=== PATIENT | female | born 1985 | race Caucasian/White ===

== ENCOUNTER 2019-08-11 08:26 | Emergency (ER) | payer OTHER ==
[~2019-08-11] VITALS: Ht 170.2 cm; Wt 74.5 kg
--- OUTSIDE RECORDS SUMMARY | ~2019-08-11 | XMS | Encounter Summary ---
Demographics + + + | Address | [address] | | | [place] [address] | + + + | Home Phone | | + + + | Preferred Language | Unknown | + + + | Marital Status | Unknown | + + + | Amish Affiliation | Unknown | + + + | Race | Unknown | + + + | Ethnic Group | Unknown | + + + Author + + + | Author | [facility] | | | and [place] | + + + | Organization | [facility] | | | and [place] | + + + | Address | Unknown | + + + | Phone | Unavailable | + + + Support + + + + + | Name | Relationship | Address | Phone | + + + + + | Patel Spence | ECON | [address] | | | | | [place] | | | | | [address] | | + + + + + Care Team Providers + +------+ + | Care Field Care Advocate Name | Role | Phone | + +------+ + | Cyndi Bell MD | PCP | | + +------+ + Reason for Visit + + + | Reason | Comments | + + + | Vaginal Odor | RM5, and irritation after swimming. Diflucan taken 02/13/18. | | | Urinary frequency | + + + Encounter Details +--------+---------+ + + + | Date | Type | Department | Care Team | Description | +--------+---------+ + + + | 02/15/ | Office | [facility] | Darwin Young, | Abdominal bloating | | 2018 | Visit | CARE [address] | [address] | (Primary Dx); Acute | | | | [place], [place] | [place] | vaginitis | | | | [address] | [address] | | | | | [phone] | | | +--------+---------+ + + + Social History + + + +--------+ + | Tobacco Use | Types | Packs/Day | Years | Date | | | | | Used | | + + + +--------+ + | Former Smoker | Cigarettes | | 11 | Quit: 09/19/2014 | + + + +--------+ + + +---+---+---+ | Smokeless Tobacco: | | | | | Never Used | | | | + +---+---+---+ + + +---------+ + | Alcohol Use | Drinks/Week | oz/Week | Comments | + + +---------+ + | Yes | 1-2 Glasses of | | | | | wine | | | + + +---------+ + + + + | Sex Assigned at | Date Recorded | | | | + + + | Female | | + + + + + + + | Job Start Date | Occupation | Industry | + + + + | Not on file | Not on file | Not on file | + + + + + + + + | Travel History | Travel Start | Travel End | + + + + + + | No recent travel history available. | + + documented as of this encounter Last Filed Vital Signs + + + + + | Vital Sign | Reading | Time Taken | Comments | + + + + + | Blood Pressure | 120/70 | 02/15/2018 8:37 AM | | | | | PDT | | + + + + + | Pulse | 68 | 02/15/2018 8:37 AM | | | | | PDT | | + + + + + | Temperature | 36.6 C (97.9 F) | 02/15/2018 8:37 AM | | | | | PDT | | + + + + + | Respiratory Rate | 16 | 02/15/2018 8:37 AM | | | | | PDT | | + + + + + | Oxygen Saturation | 99% | 02/15/2018 8:37 AM | | | | | PDT | | + + + + + | Inhaled Oxygen | - | - | | | Concentration | | | | + + + + + | Weight | 73.4 kg (161 lb 13.1 | 02/15/2018 8:37 AM | | | | oz) | PDT | | + + + + + | Height | 170.2 cm (5' 7") | 02/15/2018 8:37 AM | | | | | PDT | | + + + + + | Body Mass Index | 25.34 | 02/15/2018 8:37 AM | | | | | PDT | | + + + + + documented in this encounter Patient Instructions Patient Instructions Darwin Young MD - 02/15/2018 8:45 AM PDTI will call you with you r test results. Call back here in a couple days regarding your Chlamydia and gonorrhea test s. Return over the week should symptoms persist. documented in this encounter Progress Notes Darwin Young MD - 02/15/2018 8:45 AM PDTFormatting of this note might be different fr om the original. Subjective: Chief Complaint: Vaginal Odor (RM5, and irritation after swimming. Diflucan taken 02/13/18. Urinary frequency) Daniele is a 32 y.o. female who comes in complaining of initially developing some vaginal it reese and redness with a white clumpy discharge about a week ago, after swimming in the [employer]. Because of this 3 days ago she thought she had a yeast vaginitis and take a Diflucan 150 mg orally. Those symptoms seem to resolve with her now having some lower abdominal bloatin g, foul vaginal odors, and some mild pelvic cramping. She states her bladder feels full. S he denies any fevers or chills though has a little bit of nausea and feels a little tired. No diarrhea. She is sexually active not using any type of contraception, and monogamous for the last year and a half. Her last menstrual period was 2 weeks ago which was a little lat e and a little shorter than usual. Past medical history significant for history of genital herpes, though she states she prevents it from daily acyclovir. She had a miscarriage with D&C 3 months ago without complications. In the past she has had a laparoscopic appendectomy and had a laparoscopic ovarian cyst removed. She does not smoke. No other complaints. Patient's medications, allergies, past medical, surgical, social and family histories were reviewed and updated as appropriate. Objective: BP 120/70 | Pulse 68 | Temp 36.6 C (97.9 F) (Temporal) | Resp 16 | Ht 1.702 m (5' 7 ") | Wt 73.4 kg (161 lb 13.1 oz) | LMP 01/30/2018 (Approximate) | SpO2 99% | Breastfeedi ng? No | BMI 25.34 kg/m General Appearance: Alert, cooperative, no distress, appears stated age Abdomen soft, with mild diffuse tenderness in the upper quadrants though no tenderness in t he lower quadrants, without rebound or guarding, without masses, no CVA tenderness to percus jill, no hepatosplenomegaly Pelvic exam shows normal external genitalia, speculum exam shows a creamy white vaginal dis charge though no mucosal inflammation or lesions, cervix appears normal, no uterine motion t enderness, only minimal bilateral adnexal tenderness Skin normal Urine dip negative Urine beta-hCG negative Vaginal path DNA probe negative Cervical swab for GC, Chlamydia, and Trichomonas pending Assessment and Plans: Abdominal bloating with a nonspecific vaginitis. Despite test being negative will give a t rial of Flagyl 500 mg twice a day for a week. She'll call back in a few days regarding her screening for GC and Chlamydia. Return should symptoms persist. documented in this e ncounter Plan of Treatment Not on filedocumented as of this encounter Procedures + +--------+ + + + | Procedure Name | Priori | Date/Time | Associated Diagnosis | Comments | | | ty | | | | + +--------+ + + + | POCT TEST, | Routin | 02/15/2018 | Abdominal bloating | Results for this | | URINE, QUAL | e | 9:28 AM | Acute vaginitis | procedure are in the | | | | PDT | | results section. | + +--------+ + + + | POCT URINALYSIS, | Routin | 02/15/2018 | Abdominal bloating | Results for this | | AUTO WITH CONF | e | 9:27 AM | Acute vaginitis | procedure are in the | | | | PDT | | results section. | + +--------+ + + + | C. TRACHOMATIS AND | Routin | 02/15/2018 | Abdominal bloating | Results for this | | N. GONORRHOEAE AND | e | 9:25 AM | Acute vaginitis | procedure are in the | | T. VAGINALIS, NAAT | | PDT | | results section. | + +--------+ + + + | VAGINAL PATHOGENS | STAT | 02/15/2018 | Abdominal bloating | Results for this | | DNA DIRECT PROBE | | 9:25 AM | Acute vaginitis | procedure are in the | | | | PDT | | results section. | + +--------+ + + + documented in this encounter Results POCT Test, Urine, QUAL (02/15/2018 9:28 AM PDT) + + + + + + | Component | Value | Ref Range | Performed | Pathologist | | | | | At | Signature | + + + + + + | | Negative | Negative | | | | Test, | | | | | | Urine, POC | | | | | + + + + + + | Internal QC | Acceptable | Acceptable | | | + + + + + + | Specific | 1.015 | 1.010, 1.015, | | | | [place], | | 1.020, 1.025 | | | | POC | | | | | + + + + + + | Lot Number | [id number] | | | | + + + + + + | Expiration | 06/05 | | | | | Date | | | | | + + + + + + + + | Specimen | + + | Urine | + + POCT Urinalysis Dipstick Automated (02/15/2018 9:27 AM PDT) + + + + + + | Component | Value | Ref Range | Performed | Pathologist | | | | | At | Signature | + + + + + + | Color, UA, | Dark Yellow (A) | Yellow, Light | | | | POC | | Yellow | | | + + + + + + | Clarity, | Clear | | | | | UA, POC | | | | | + + + + + + | Glucose, | Negative | Negative | | | | UA, POC | | | | | + + + + + + | Bilirubin, | Negative | Negative | | | | UA, POC | | | | | + + + + + + | Ketones, | Negative | Negative, 100 | | | | UA, POC | | mg/dL | | | + + + + + + | Specific | 1.015 | 1.001 - 1.030 | | | | [place], | | | | | | UA, POC | | | | | + + + + + + | Blood, UA, | Negative | Negative | | | | POC | | | | | + + + + + + | pH, UA, POC | 7.0 | 5.0, 6.0, 7.0, | | | | | | 8.0, 5.5, 6.5, | | | | | | 7.5 | | | + + + + + + | Protein, | Negative | Negative | | | | UA, POC | | | | | + + + + + + | Urobilinoge | 0.2 | 0.2, Negative, | | | | n, UA, POC | | Normal, < 0.2 | | | | | | mg/dL, 1 mg/dL, | | | | | | < 0.2 E.U./dl, | | | | | | 1.0 E.U./dL, | | | | | | 0.2 mg/dL | | | + + + + + + | Nitrite, | Negative | Negative | | | | UA, POC | | | | | + + + + + + | Leukocyte | Negative | Negative | | | | Esterase, | | | | | | UA, POC | | | | | + + + + + + | Reducing | | | | | | Substances, | | | | | | Urine | | | | | + + + + + + | Ictotest | | Negative | | | + + + + + + | Remark | | | | | + + + + + + + + | Specimen | + + | Urine | + + C. TRACHOMATIS AND N. GONORRHOEAE AND T. VAGINALIS, NAAT (02/15/2018 9:25 AM PDT) + + + + + + | Component | Value | Ref Range | Performed | Pathologist | | | | | At | Signature | + + + + + + | Chlamydia | Negative | Negative | REFERENCE | | | Trachomatis | | | LAB [facility] | | | Naat | | | - BKR | | + + + + + + | Neisseria | Negative | Negative | REFERENCE | | | Gonorrhoeae | | | LAB [facility] | | | DNA PCR | | | - BKR | | + + + + + + | Trichomonas | Negative | Negative | REFERENCE | | | vaginalis, | | | LAB [facility] | | | DNA probe | | | - BKR | | + + + + + + + + | Specimen | + + | Tissue - Region of | | vagina (body | | structure) | + + + + + | Narrative | Performed At | + + + | Performed at: 01 - [facility] [address] [place] [address], | REFERENCE LAB | | [place] Funes [id number] Clerical Office: Chandler Barnett MD, Phone: | [place] | | [phone] | | + + + + + + + + | Performing | Address | City/State/Zipcode | Phone Number | | Organization | | | | + + + + + | REFERENCE LAB | [address] | [place] [address] | [phone] | | [facility] | [address] | | | + + + + + Vaginal Path DNA dir probe (02/15/2018 9:25 AM PDT) + + + + + + | Component | Value | Ref Range | Performed | Pathologist | | | | | At | Signature | + + + + + + | Ericka SP | Negative | Negative | [facility] | | | DNA Genital | | | [facility] | | | | | | [facility] | | | | | | [facility] - | | | | | | LABORATORY | | + + + + + + | Gardnerella | Negative | Negative | [facility] | | | vaginalis | | | [facility] | | | DNA | | | MEDICAL | | | | | | CENTER - | | | | | | LABORATORY | | + + + + + + | Trichomonas | Negative | Negative | [facility] | | | Vaginalis | | | [facility] | | | DNA | | | MEDICAL | | | | | | CENTER - | | | | | | LABORATORY | | + + + + + + + + | Specimen | + + | Tissue - Region of | | vagina (body | | structure) | + + + + + + + | Performing | Address | City/State/Zipcode | Phone Number | | Organization | | | | + + + + + | [facility] | [address] | [place], [place] | [phone] | | [facility] | | [address] | | | - LABORATORY | | | | + + + + + documented in this encounter Visit Diagnoses + + | Diagnosis | + + | Abdominal bloating - Primary Flatulence, eructation, and gas pain | + + | Acute vaginitis Vaginitis and vulvovaginitis, unspecified | + + documented in this encounter
--- OUTSIDE RECORDS SUMMARY | ~2019-08-11 | XMS | Encounter Summary ---
Demographics + + + | Address | [address] | | | [place] [address] | + + + | Home Phone | | + + + | Preferred Language | Unknown | + + + | Marital Status | Unknown | + + + | Hoahaoism Affiliation | Unknown | + + + | Race | Unknown | + + + | Ethnic Group | Unknown | + + + Author + + + | Author | [facility] | | | and [place] | + + + | Organization | [facility] | | | and [...] [place] | | | | | [address] | | + + + + + Care Team Providers + +------+ + | Care Java Websphere Developer Name | Role | Phone | + +------+ + | Cyndi Bell MD | PCP | | + +------+ + Reason for Visit +---------+ + | Reason | Comments | +---------+ + | Results | | +---------+ + Encounter Details +--------+ + + + + | Date | Type | Department | Care Team | Description | +--------+ + + + + | 12/22/ | Telephone | [facility] | Melody Bruner, | Results | | 2019 | | MEDICINE [place] | MD [address] | | | | | [address] | [place], [place] | | | | | [place], [place] | [address] | | | | | [address] | | | | | | [phone] | | | +--------+ + + + + Social History + + [...] Comments | + + +---------+ + | Not Currently | 1-2 Glasses of | | | | | wine | | | + + +---------+ + + + + | Sex Assigned at | Date Recorded | | | | + + + | Female | 12/21/2018 10:29 AM PDT | + + + + + + [...] + + documented as of this encounter Plan of Treatment Not on filedocumented as of this encounter Visit Diagnoses Not on filedocumented in this encounter"
--- OUTSIDE RECORDS SUMMARY | ~2019-08-11 | XMS | Encounter Summary ---
Demographics + + + | Address | [address] | | | [place] [address] | + + + | Home Phone | | + + + | Preferred Language | Unknown | + + + | Marital Status | Unknown | + + + | Roman Catholic Affiliation | Unknown | + + + | Race | Unknown | + + + | Ethnic Group | Unknown | + + + Author + + + | Author | [facility] | | | and [place] | + + + | Organization | [facility] | | | and [...] [place] | | | | | [address] | | + + + + + Care Team Providers + +------+ + | Care Senior Restaurant Manager Name | Role | Phone | + +------+ + | Cyndi Bell MD | PCP | | + +------+ + Reason for Visit +--------+ + | Reason | Comments | +--------+ + | LABS | | +--------+ + Encounter Details +--------+ + + + + | Date | Type | Department | Care Team | Description | +--------+ + + + + | 06/17/ | Telephone | [facility] | Melody Bruner, | LABS | | 2018 | | MEDICINE [place] | [address] | | | | | [address] | [place] | | | | | [place] | [address] | | | | | [address] | | | | | | [phone] | | | +--------+ + + + [...]
--- OUTSIDE RECORDS SUMMARY | ~2019-08-11 | XMS | Clinical Summary ---
Demographics + + + | Address | [address] | | | [place] [address] | + + + | Home Phone | | + + + | Preferred Language | Unknown | + + + | Marital Status | Single | + + + | Voodoo Affiliation | Unknown | + + + | Race | White | + + + | Ethnic Group | Not or | + + + Author + + + | Author | [facility] | + + + | Organization | [facility] | + + + | Address | Unknown | + + + | Phone | Unavailable | + + + Support + + +---------+ + | Name | Relationship | Address | Phone | + + +---------+ + | Bev Meredith | ECON | Unknown | | + + +---------+ + Care Team Providers + +------+ + | Care Carbon Lamp Cleaner Name | Role | Phone | + +------+ + | Michelle Holloway MEDTRONICS TECHNICIAN | PCP | | + +------+ + Source Comments THIEN is fully live on both [facility] and [facility] Allergies Not on File Medications Not on file Active Problems Not on file Social History + +-------+ +--------+------+ | Tobacco Use | Types | Packs/Day | Years | Date | | | | | Used | | + +-------+ +--------+------+ | Never Assessed | | | | | + +-------+ +--------+------+ + + + | Sex Assigned at | Date Recorded | | | | + + + | Not on file | | + + + + + [...] recent travel history available. | + + Last Filed Vital Signs Not on file Plan of Treatment + + + + + | Health Maintenance | Due Date | Last Done | Comments | + + + + + | Influenza (Flu) | | | | | vaccination (#1) | 9 | | | + + + + + | Pneumococcal | Aged Out | | No longer eligible | | vaccination | | | based on patient's | | | | | age to complete this | | | | | topic | + + + + + Results Not on filefrom Last 3 Months Insurance + +--------+ +--------+-------+---------+--------+ | Payer | Benefi | Subscriber | Effect | Phone | Address | Type | | | t Plan | ID | [place] | | | | | | / | | Dates | | | | | | Group | | | | | | + +--------+ +--------+-------+---------+--------+ | SPRAY GUN OPERATOR MEDICAID | SPRAY GUN OPERATOR | xxxxxxxx | Effect | | | Medica | | | [place]AST[place] | | [place] | | | id | | | [place] | | for | | | | | | | | all | | | | | | | | dates | | | | + +--------+ +--------+-------+---------+--------+ + +--------+ +--------+ + + | Guarantor Name | Accoun | Relation to | Date | Phone | Billing Address | | | t Type | Patient | of | | | | | | | | | | + +--------+ +--------+ + + | Daniele Connor | Person | Self | [birth year] | [address] | | | al/Fam | | 1984 | [phone] | [place] [address] | | | [place] | | | 0 (Home) | | + +--------+ +--------+ + + | Daniele Connor | Person | Self [birth year] | [address] | | | al/Fam | | 1984 | [phone] | [place] [address] | | | [place] | | | 1 (Home) | | + +--------+ +--------+ + +"
--- OUTSIDE RECORDS SUMMARY | ~2019-08-11 | XMS | Encounter Summary ---
Demographics + + + | Address | [address] | | | [place] [address] | + + + | Home Phone | | + + + | Preferred Language | Unknown | + + + | Marital Status | Unknown | + + + | Faith Affiliation | Unknown | + + + | Race | Unknown | + + + | Ethnic Group | Unknown | + + + Author + + + | Author | [facility] | | | and [place] | + + + | Organization | [facility] | | | and [...] [place] | | | | | [address] | | + + + + + Care Team Providers + +------+ + | Care Cover Marker Name | Role | Phone | + +------+ + | Cyndi Bell MD | PCP | | + +------+ + Encounter Details +--------+ + + + + | Date | Type | Department | Care Team | Description | +--------+ + + + + | 10/15/ | Abstract | [facility] | Cyndi Bell MD | | | 2018 | | MEDICINE [place] | [address] | | | | | [address] | [place] | | | | | [place] | [address] | | | | | [address] | | | | | | [phone] | | | +--------+ + + + [...]
--- OUTSIDE RECORDS SUMMARY | ~2019-08-11 | XMS | Encounter Summary ---
Demographics + + + | Address | [address] | | | [place] [address] | + + + | Home Phone | | + + + | Preferred Language | Unknown | + + + | Marital Status | Unknown | + + + | Religion Affiliation | Unknown | + + + | Race | Unknown | + + + | Ethnic Group | Unknown | + + + Author + + + | Author | [facility] | | | and [place] | + + + | Organization | [facility] | | | and [...] [place] | | | | | [address] | | + + + + + Care Team Providers + +------+ + | Care Test Preparation Tutor Name | Role | Phone | + +------+ + | Cyndi Bell MD | PCP | | + +------+ + Reason for Visit +--------+ + | Reason | Comments | +--------+ + | LABS | | +--------+ + Encounter Details +--------+ + + + + | Date | Type | Department | Care Team | Description | +--------+ + + + + | 01/25/ | Telephone | [facility] | Cyndi Bell MD | LABS | | 2019 | | MEDICINE [place] | [address] | | | | | [address] | [place] | | | | | [place] | [address] | | | | | [address] | | | | | | [phone] | | | +--------+ + + + [...]
--- OUTSIDE RECORDS SUMMARY | ~2019-08-11 | XMS | Encounter Summary ---
Demographics + + + | Address | [address] | | | [place] [address] | + + + | Home Phone | | + + + | Preferred Language | Unknown | + + + | Marital Status | Unknown | + + + | Alevism Affiliation | Unknown | + + + | Race | Unknown | + + + | Ethnic Group | Unknown | + + + Author + + + | Author | [facility] | | | and [place] | + + + | Organization | [facility] | | | [...] [place] | | | | | [address] | | + + + + + Care Team Providers + +------+ + | Care Computer Education Teacher Name | Role | Phone | + +------+ + | Cyndi Bell MD | PCP | | + +------+ + Encounter Details +--------+ + + + + | Date | Type | Department | Care Team | Description | +--------+ + + + + | 10/13/ | Abstract | [facility] | Cyndi Bell MD | | | 2017 | | MEDICINE [place] | [address] | | | | | [address] | [place] | | | | | [place] | [address] | | | | | [address] | | | | | | [phone] | | | +--------+ + + + + Social History + + + +--------+ + | Tobacco Use | Types | Packs/Day | Years | Date | | | | | Used | | + + + +--------+ + | Former Smoker | Cigarettes | | | Quit: 09/19/2014 | + + + [...] | + +--------+ + + + | EXTERNAL LAB: [facility] | Routin | 08/26/2017 | | Results for this | | SMEAR | e | | | procedure are in the | | | | | | results section. | + +--------+ + + + documented in this encounter Results External Lab: PAP Smear (08/26/2017) + + + + + + | Component | Value | Ref Range | Performed | Pathologist | | | | | At | Signature | + + + + + + | Pap Smear, | No evidence of | | | | | External | intraepithelial lesion | | | | | | or malignancy | | | | + + + + + + documented in this encounter Visit Diagnoses Not on filedocumented in this encounter"
--- OUTSIDE RECORDS SUMMARY | ~2019-08-11 | XMS | Encounter Summary ---
Demographics + + + | Address | [address] | | | [place] [address] | + + + | Home Phone | | + + + | Preferred Language | Unknown | + + + | Marital Status | Unknown | + + + | Sabianist Affiliation | Unknown | + + + | Race | Unknown | + + + | Ethnic Group | Unknown | + + + Author + + + | Author | [facility] | | | and [place] | + + + | Organization | [facility] | | | and [...] [place] | | | | | [address] | | + + + + + Care Team Providers + +------+ + | Care Manager Language Name | Role | Phone | + +------+ + | Cyndi Bell MD | PCP | | + +------+ + Reason for Visit + + + | Reason | Comments | + + + | Lab Order | | + + + Encounter Details +--------+ + + + + | Date | Type | Department | Care Team | Description | +--------+ + + + + | 04/13/ | Telephone | [facility] | Cyndi Bell MD | Lab Order | | 2019 | | MEDICINE [place] | [address] | | | | | [address] | [place] | | | | | [place], [place] | [address] | | | | | [address] | | | | | | [phone] | | | +--------+ + + + [...] as of this encounter Plan of Treatment + +------+--------+ + + | Name | Type | Priori | Associated Diagnoses | Order Schedule | | | | ty | | | + +------+--------+ + + | TSH | Lab | Routin | Miscarriage | 1 Occurrences | | | | e | | starting 05/05/2019 | | | | | | until 05/04/2020 | + +------+--------+ + + | T3, Free | Lab | Routin | Miscarriage | 1 Occurrences | | | | e | | starting 05/05/2019 | | | | | | until 05/04/2020 | + +------+--------+ + + | T4, Free | Lab | Routin | Miscarriage | 1 Occurrences | | | | e | | starting 05/05/2019 | | | | | | until 05/04/2020 | + +------+--------+ + + documented as of this encounter Visit Diagnoses + + | Diagnosis | + + | Miscarriage - Primary Unspecified spontaneous without mention of | | complication | + + documented in this encounter"
--- OUTSIDE RECORDS SUMMARY | ~2019-08-11 | XMS | Encounter Summary ---
Demographics + + + | Address | [address] | | | [place] [address] | + + + | Home Phone | | + + + | Preferred Language | Unknown | + + + | Marital Status | Unknown | + + + | Gnosticist Affiliation | Unknown | + + + | Race | Unknown | + + + | Ethnic Group | Unknown | + + + Author + + + | Author | [facility] | | | and [place] | + + + | Organization | [facility] | | | and [...] [place] | | | | | [address] | | + + + + + Care Team Providers + +------+ + | Care Caul Fat Puller Name | Role | Phone | + +------+ + | Cyndi Bell MD | PCP | | + +------+ + Reason for Visit + + + | Reason | Comments | + + + | Miscarriage | | + + + Encounter Details +--------+ + + + + | Date | Type | Department | Care Team | Description | +--------+ + + + + | 12/21/ | Telephone | [facility] [place] [facility] | Cyndi Bell MD | Miscarriage | | 2019 | | MEDICINE [place] | [address] | | | | | [address] | [place], [place] | | | | | [place], [place] | [address] | | | | | [address] | | | | | | [phone] | | | +--------+ + + + [...]
--- OUTSIDE RECORDS SUMMARY | ~2019-08-11 | XMS | Encounter Summary ---
Demographics + + + | Address | [address] | | | [place] [address] | + + + | Home Phone | | + + + | Preferred Language | Unknown | + + + | Marital Status | Unknown | + + + | Holiness Affiliation | Unknown | + + + | Race | Unknown | + + + | Ethnic Group | Unknown | + + + Author + + + | Author | [facility] | | | and [place] | + + + | Organization | [facility] | | | [...] [place] | | | | | [address] | | + + + + + Care Team Providers + +------+ + | Care Admissions Consultant Name | Role | Phone | + +------+ + | Cyndi Bell MD | PCP | | + +------+ + Reason for Visit + + + | Reason | Comments | + + + | Lab Order | | + + + | Miscarriage | | + + + Encounter Details +--------+ + + + + | Date | Type | Department | Care Team | Description | +--------+ + + + + | 01/18/ | Telephone | [facility] | Melody Bruner, | Lab Order; | | 2018 | | [facility] [place] | [address] | Miscarriage | | | | [address] | [place] | | | | | [place] | [address] | | | | | [address] | | | | | | [phone] | | | +--------+ + + + [...] filedocumented as of this encounter Visit Diagnoses + + | Diagnosis | + + | Miscarriage - Primary Unspecified spontaneous without mention of | | complication | + + documented in this encounter"
--- OUTSIDE RECORDS SUMMARY | ~2019-08-11 | XMS | Encounter Summary ---
Demographics + + + | Address | [address] | | | [place] [address] | + + + | Home Phone | | + + + | Preferred Language | Unknown | + + + | Marital Status | Unknown | + + + | Rastafari Affiliation | Unknown | + + + | Race | Unknown | + + + | Ethnic Group | Unknown | + + + Author + + + | Author | [facility] | | | and [place] | + + + | Organization | [facility] | | | [...] [place] | | | | | [address] | | + + + + + Care Team Providers + +------+ + | Care Epilepsy Physician Name | Role | Phone | + +------+ + | Cyndi Bell MD | PCP | | + +------+ + Reason for Visit + + + | Reason | Comments | + + + | Medication Prior | Clindamycin 1% gel | | Authorization | | + + + Encounter Details +--------+ + + + + | Date | Type | Department | Care Team | Description | +--------+ + + + + | 10/20/ | Telephone | [facility] | Cyndi Bell MD | Medication Prior | | 2017 | | [facility] [place] | [address] | Authorization | | | | [address] | [facility] [place] | (Clindamycin 1% gel) | | | | [place], [place] | [address] | | | | | [address] | | | | | | [phone] | | | +--------+ + + + [...]
--- OUTSIDE RECORDS SUMMARY | ~2019-08-11 | XMS | Encounter Summary ---
Demographics + + + | Address | [address] | | | [place] [address] | + + + | Home Phone | | + + + | Preferred Language | Unknown | + + + | Marital Status | Unknown | + + + | Mormon Affiliation | Unknown | + + + | Race | Unknown | + + + | Ethnic Group | Unknown | + + + Author + + + | Author | [facility] | | | and [place] | + + + | Organization | [facility] | | | and [place] | + + + | Address | Unknown | + + + | Phone | Unavailable | + + + Support + + + + + | Name | Relationship | Address | Phone | + + + + + | Patel Spnece | ECON | [address] | | | | | [place] | | | | | [address] | | + + + + + Care Team Providers + +------+ + | Care Shift Supervisor Film Processing Name | Role | Phone | + +------+ + | Cyndi Bell MD | PCP | | + +------+ + Encounter Details +--------+ + + + + | Date | Type | Department | Care Team | Description | +--------+ + + + + | 10/13/ | Abstract | [facility] | Cyndi Bell MD | | | 2017 | | [facility] [place] | [address] | | | | | [address] | [place] | | | | | [place] | [address] | | | | | [address] | | | | | | [phone] | | | +--------+ + + + [...]
--- OUTSIDE RECORDS SUMMARY | ~2019-08-11 | XMS | Encounter Summary ---
Demographics + + + | Address | [address] | | | [place] [address] | + + + | Home Phone | | + + + | Preferred Language | Unknown | + + + | Marital Status | Single | + + + | Jain Affiliation | Unknown | + + + | Race | White | + + + | Ethnic Group | Not or | + + + Author + + + | Author | [facility] | + + + | Organization | [facility] | + + + | Address | Unknown | + + + | Phone | Unavailable | + + + Support + + +---------+ + | Name | Relationship | Address | Phone | + + +---------+ + | Bev Meredith | ECON | Unknown | | + + +---------+ + Care Team Providers + +------+ + | Care Family Educator Name | Role | Phone | + +------+ + PCP | Unavailable | + +------+ + Encounter Details +--------+ + + + + | Date | Type | Department | Care Team | Description | +--------+ + + + + | 06/09/ | Office | [facility] | Amador Fuentes | Progress Note | | 2002 | Visit-Trans | PRACTICE | Clinic | | | | cribed | | | | +--------+ + + + + Social History + +-------+ +--------+------+ | Tobacco [...] + + documented as of this encounter Progress Notes Interface, Carpet Journeyman In - 02/03/2006 1:06 AM PDTClinic Date: 06/09/2003 [facility] Subjective: Daniele comes to the clinic today to establish care as well as a concern for a white vaginal discharge for the past week. The patient does not complain of pruritus or an abnormal odor. She also reports that she had unprotected sex 2 months ago. Her last menstrual period was on May 14, 2003. The patient's periods are usually irregular and last approximately 7 days. The patient is on a control, Ortho Tri-Cyclen, however, reports that she has been taking this irregularly. Review Of Systems: Positive for one day of vomiting one week ago, subsequently resolved. Otherwise, review of system is negative. Past Medical History 1. Depression. The patient has been intermittently treated for this with Zoloft, the last time she was treated was 8 months ago. Since that time, she reports that she has had normal mood and normal appetite. No change in sleeping habits. No anhedonia or increased emotionality. 2. History of Chlamydia, treated in 1999. Past Gynecological History: Menarche at age 12. The patient is a G0, P0. Last Pap smear was in 2001. No history of abnormal Paps. STDs as above. Chlamydia in 2001. Periods are irregular, as above. The patient is formally on Depo-Provera. Allergies: No known drug allergies. Medications: Ortho Tri-Cyclen q.d. x 2 months. Social History: The patient has recently moved here from [place]. 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 Habits: Tobacco, one pack every 2 to 3 days x 5 years. Alcohol, a couple of drinks every other month. No recreational drug use. Family History: Grandfather has hypertension. The mother with a type of stomach cancer. Grandmother and great grandmother with history of breast cancer. Health Maintenance: Immunizations are up to date. Last tetanus shot was in 2002. Exercise several times a month, situps and walking. Physical Examination Vital Signs: Blood pressure is 110/64, temperature is 97.1, pulse is 80, respiratory rate is 14, height is 5 feet 4-3/4 inches, and weight is 145 pounds. General: This is a thin, pleasant young woman in no apparent distress. HEENT: Pupils are equally, round, and reactive to light. Oropharynx is clear without erythema or exudate. Neck: No lymphadenopathy. Heart: Regular rate and rhythm without murmurs. Chest: Clear to auscultation bilaterally. Abdomen: Normal active bowel sounds. Soft, nontender, and nondistended. Genitourinary: Normal external genitalia without lesions. Vaginal vault is pink, rugated, and no lesions. Cervix is nonparous without lesion. Bimanual exam: No adnexal tenderness or masses. Uterus is midline and anteroflexed. Extremities: Warm and well perfused. Laboratory Data: Urine hCG is negative. Wet mount is without evidence of clue cells or Trichomonas. FARRAH without hyphae. Assessment and Plan: This is a 18-year-old female complaining of vaginal discharge with concerns after having unprotected sex. 1. Vaginal discharge. Wet mount and FARRAH were negative. GC and Chlamydia probe was collected. Pelvic exam was normal without signs of tenderness or an abnormal discharge. On exam, the patient received sexually transmitted diseases prevention counseling. We will follow up the results of the GC probe and send the report to the patient. 2. control. The patient is currently on Ortho Tri-Cyclen, although she takes this irregularly. We discussed that the control is not effective when taken in this manner. We also discussed her increased risk with oral contraceptive pills because of a positive family history of a breast cancer as well as smoking. We discussed other forms of control; however, the patient has decided to continue the Ortho Tri-Cyclen at this time. 3. The patient will be sent the results of her Pap smear as well as GC and Chlamydia. She will follow up in the clinic in 6 months or p.r.n. Juan Yost M.D. Salvatore Odell M.D. / [id number] / [id number] / [id number] / Tdocumented in this encounter Plan of Treatment Not on filedocumented as of this encounter Visit Diagnoses Not on filedocumented in this encounter"
--- OUTSIDE RECORDS SUMMARY | ~2019-08-11 | XMS | Encounter Summary ---
Demographics + + + | Address | [address] | | | [place] [address] | + + + | Home Phone | | + + + | Preferred Language | Unknown | + + + | Marital Status | Unknown | + + + | Rastafarian Affiliation | Unknown | + + + | Race | Unknown | + + + | Ethnic Group | Unknown | + + + Author + + + | Author | [facility] | | | and [place] | + + + | Organization | [facility] | | | [...] [place] | | | | | [address] | | + + + + + Care Team Providers + +------+ + | Care Microbiology Supervisor Name | Role | Phone | + [...] Telephone | [facility] | Melody Bruner, | Miscarriage | | 2019 | | [facility] [place] | [address] | | | | | [address] | [place], [place] | | | | | [place], [place] | [address] | | | | | [address] | | | | | | [phone] | | | +--------+ + + + [...] Not on filedocumented as of this encounter Results TYLER Mane (12/22/2018 7:10 AM PDT) + + + + + + | Component | Value | Ref Range | Performed | Pathologist | | | | | At | Signature | + + + + + + | ABO | A | | [facility] | | | | | | [facility] | | | | | | [facility] | | | | | [facility] - | | | | | | [facility] BANK | | + + + + + + | Rh Type | Positive | | [facility] | | | | | [facility] | | | | | | [facility] | | | | | | [facility] - | | | | | | [facility]LOOD BANK | | + + + + + + + + | Specimen | + + | Blood | + + + + + + + | Performing | Address | City/State/Zipcode | Phone Number | | Organization | | | | + + + + + | [facility] | [address] | [place] | | | [facility] | | [address] | | | - BLOOD BANK | | | | + + + + + documented in this encounter Visit Diagnoses + + | Diagnosis | + + | Miscarriage - Primary Unspecified spontaneous without mention of | | complication | + + documented in this encounter"
--- OUTSIDE RECORDS SUMMARY | ~2019-08-11 | XMS | Encounter Summary ---
Demographics + + + | Address | [address] | | | [place] [address] | + + + | Home Phone | | + + + | Preferred Language | Unknown | + + + | Marital Status | Unknown | + + + | Confucianist Affiliation | Unknown | + + + | Race | Unknown | + + + | Ethnic Group | Unknown | + + + Author + + + | Author | [facility] | | | and [place] | + + + | Organization | [facility] | | | [...] [place] | | | | | [address] | | + + + + + Care Team Providers + +------+ + | Care Ground Service Equipment Mechanic Name | Role | Phone | + +------+ + | Cyndi Bell MD | PCP | | + +------+ + Encounter Details +--------+ + + + + | Date | Type | Department | Care Team | Description | +--------+ + + + + | 01/25/ | Orders Only | [facility] | Melody Bruner, | Miscarriage (Primary | | 2019 | | [facility] [place] | [address] | Dx) | | | | [address] | [place] | | | | | [place] | [address] | | | | | [address] | | | | | | [phone] | | | +--------+ + + + [...] on filedocumented as of this encounter Results HCG, Serum, Quant (02/01/2019 8:44 AM PDT) + + + + + + | Component | Value | Ref Range | Performed | Pathologist | | | | | At | Signature | + + + + + + | hCG Quant, | 17 (H)Comment: [facility] | 0 - 6 mIU/mL | [facility] | | | Serum | RANGE: | | [place] | | | | B-hCG | | MEDICAL | | | | LEVELGestational Age | | [facility] | | | | Expected hCG | | LABORATORY | | | | Values | | | | | | | | | | | | 0 | | | | | | .2-1 week | | | | | | 5-50 | | | | | | mIU/mL1-2 weeks | | | | | | 50-500 | | | | | | mIU/mL2-3 weeks | | | | | | 100-5,000 | | | | | | mIU/mL3-4 weeks | | | | | | 500-10,000 | | | | | | mIU/mL4-5 weeks | | | | | | 1,000-50,000 | | | | | | mIU/mL5-6 weeks | | | | | | 10,000-100,000 | | | | | | mIU/mL6-8 weeks | | | | | | 15,000-200,000 | | | | | | mIU/mL2-3 months | | | | | | 10,000-100,000 | | | | | | mIU/mL | | | | + + + + + + + + | Specimen | + + | Blood | + + + + + + + | Performing | Address | City/State/Zipcode | Phone Number | | Organization | | | | + + + + + | [facility] | [address] | [place] | [phone] | | [facility] | | [address] | | | [facility] | | | | + + + + + documented in this encounter Visit Diagnoses + + | Diagnosis | + + | Miscarriage - Primary Unspecified spontaneous without mention of | | complication | + + documented in this encounter"
--- OUTSIDE RECORDS SUMMARY | ~2019-08-11 | XMS | Encounter Summary ---
Demographics + + + | Address | [address] | | | [place] [address] | + + + | Home Phone | | + + + | Preferred Language | Unknown | + + + | Marital Status | Unknown | + + + | Pentecostal Affiliation | Unknown | + + + | Race | Unknown | + + + | Ethnic Group | Unknown | + + + Author + + + | Author | [facility] | | | and [place] | + + + | Organization | [facility] | | [...] [place] | | | | | [id number] | | + + + + + Care Team Providers + +------+ + | [employer] Name | Role | Phone | + +------+ + | Cyndi Bell MD | PCP | | + +------+ + Reason for Visit + + + | Reason | Comments | + + + | Vaginal Discharge | Rm6; vagianal discharge x 24hrs without odor, intermittent pelvic | | | discomfort x 2 weeks, vaginal itching | + + + Encounter Details +--------+---------+ + + + | Date | Type | Department | Care Team | Description | +--------+---------+ + + + | 06/08/ | Office | [facility] | Sigrid Jose, | Acute vaginitis | | 2018 | Visit | [facility] [address] | [address] | (Primary Dx) | | | | [place] | [place] | | | | | [id number] | [address] | | | | | [phone] | | | +--------+---------+ + + + [...] + + + | Blood Pressure | 124/82 | 06/08/2018 9:48 AM | | | | | PDT | | + + + + + | Pulse | 74 | 06/08/2018 9:48 AM | | | | | PDT | | + + + + + | Temperature | 36.5 C (97.7 F) | 06/08/2018 9:48 AM | | | | | PDT | | + + + + + | Respiratory Rate | 19 | 06/08/2018 9:48 AM | | | | | PDT | | + + + + + | Oxygen Saturation | 100% | 06/08/2018 9:48 AM | | | | | PDT | | + + + + + | Inhaled Oxygen | - | - | | | Concentration | | | | + + + + + | Weight | 68.9 kg (151 lb 14.4 | 06/08/2018 9:48 AM | | | | oz) | PDT | | + + + + + | Height | 170.2 cm (5' 7") | 06/08/2018 9:48 AM | | | | | PDT | | + + + + + | Body Mass Index | 23.79 | 06/08/2018 9:48 AM | | | | | PDT | | + + + + + documented in this encounter Patient Instructions Patient Instructions Sigrid Jose MD - 06/08/2018 9:45 AM PDT Yeast Infection (Ericka Vaginal Infection) You have aCandidavaginal infection. This is also known as a yeast infection. It is most often caused by a type of yeast (fungus) calledCandida.Candidaare normally found in t he vagina. But if they increase in number, this can lead to infection and cause symptoms. Symptoms of a yeast infection can include: Clumpy or thin, white discharge, which may look like cottage cheese Itching or burning Burning with urination Certain factors can make a yeast infection more likely. These can include: Taking certain medicines, such as antibiotics or control pills Diabetes Weak immune system A yeast infection is most often treated with antifungal medicine. This may be given as a va ginal cream or pills you take by mouth. Treatment may last for about 1 to 7 days. Women with severe or recurrent infections may need longer courses of treatment. Home care If you re prescribed medicine, be sure to use it as directed. Finishallof the medi cine, even if your symptoms go away.Note: Don t try to treat yourself using ujbh-hgp-wpa nter products without talking to your provider first. He or she will let you know if this is a good option for you. Ask your provider what steps you can take to help reduce your risk of having a yeast inf ection in the future. Follow-up care Follow up with your healthcare provider, or as directed. When to seek medical advice Call your healthcare provider right away if: You have a fever of 100.4F (38C)or higher, or as directed by your provider. Your symptoms worsen, or they don t go away within a few days of starting treatment. You have new pain in the lower belly or pelvic region. You have side effects that bother you or a reaction to the cream or pills you re presc ribed. You or any partners you have sex with have new symptoms, suchas a rash, joint pain, or sores. Date Last Reviewed: 05/18/201719990397-4923 [employer]. [address] [place] [address]. All righ ts reserved. This information is not intended as a substitute for professional medical care. Always follow your healthcare professional's instructions. documented in this encounter Progress Notes Sigrid Jose MD - 06/08/2018 9:45 AM PDTFormatting of this note might be different fro m the original. Subjective: Chief Complaint: Vaginal Discharge (Rm6; vagianal discharge x 24hrs without odor, intermitt ent pelvic discomfort x 2 weeks, vaginal itching) History of Present Illness: Daniele is a 32 y.o. female who comes in complaining of vaginal discharge and itching for 3 days. LMP was 05/09. + sexually active and monogamous. She and her boyfriend have broken up and gotten together twice recently. She has not had sex with anyone else but him. No o ther complaints. Patient's medications, allergies, past medical, surgical, social and family histories were reviewed and updated as appropriate. ROS: see HPI Objective: BP 124/82 | Pulse 74 | Temp 36.5 C (97.7 F) (Temporal) | Resp 19 | Ht 1.702 m (5' 7 ") | Wt 68.9 kg (151 lb 14.4 oz) | LMP 04/25/2018 (Exact Date) | SpO2 100% | Breastfeedi ng? No | BMI 23.79 kg/m General Appearance: Alert, cooperative, no distress, appears stated age Abdomen: +BS soft NT ND Vulva: No lesions Perineum and labia: Mild erythema Introitus: Mild erythema with thin yellow discharge Vagina: Thin yellow discharge no clumping or odor Cervix: No lesions, not friable, no CMT Uterus: nontender Adnexa: nontender Recent Results (from the past 24 hour(s)) POCT Urinalysis Dipstick Automated Result Value Ref Range Color, UA, POC Dark Yellow (A) Yellow, Light Yellow Clarity, UA, POC Hazy Glucose, UA, POC Negative Negative Bilirubin, UA, POC Negative Negative Ketones, UA, POC Trace (A) Negative, 100 mg/dL Specific [place], UA, POC 1.015 1.001 - 1.030 Blood, UA, POC Negative Negative pH, UA, POC 7.5 5.0, 6.0, 7.0, 8.0, 5.5, 6.5, 7.5 Protein, UA, POC Negative Negative Urobilinogen, UA, POC 0.2 0.2, Negative, Normal, < 0.2 mg/dL, 1 mg/dL, < 0.2 E.U./dl, 1.0 E.U./dL, 0.2 mg/dL Nitrite, UA, POC Negative Negative Leukocyte Esterase, UA, POC Small (A) Negative RED SUB UA ICTOTEST Negative REMARK POCT Test, Urine, QUAL Result Value Ref Range Test, Urine, POC Negative Negative Internal QC Acceptable Acceptable Specific [place], POC 1.010, 1.015, 1.020, 1.025 Lot Number [id number] Expiration Date 07/27/2019 Vaginal Path DNA dir probe Result Value Ref Range Ericka SP DNA Genital Positive (A) Negative Gardnerella vaginalis DNA Negative Negative Trichomonas Vaginalis DNA Negative Negative Assessment and Plans: Ericka vaginitis: Will treat with Diflucan at patient's preference. I counseled her that Diflucan can damage to liver. She says the Monistat never works for her. She is tried clotrimazole as well. No douching. Avoid sexual activity until discharge is gone. GC chlamydia results pending Yeast Infection (Ericka Vaginal Infection) You have aCandidavaginal infection. This is also known as a yeast infection. It is most often caused by a type of yeast (fungus) calledCandida.Candidaare normally found in t he vagina. But if they increase in number, this can lead to infection and cause symptoms. Symptoms of a yeast infection can include: Clumpy or thin, white discharge, which may look like cottage cheese Itching or burning Burning with urination Certain factors can make a yeast infection more likely. These can include: Taking certain medicines, such as antibiotics or control pills Diabetes Weak immune system A yeast infection is most often treated with antifungal medicine. This may be given as a va ginal cream or pills you take by mouth. Treatment may last for about 1 to 7 days. Women with severe or recurrent infections may need longer courses of treatment. Home care If you re prescribed medicine, be sure to use it as directed. Finishallof the medi cine, even if your symptoms go away.Note: Don t try to treat yourself using vgrv-idx-ngr nter products without talking to your provider first. He or she will let you know if this is a good option for you. Ask your provider what steps you can take to help reduce your risk of having a yeast inf ection in the future. Follow-up care Follow up with your healthcare provider, or as directed. When to seek medical advice Call your healthcare provider right away if: You have a fever of 100.4F (38C)or higher, or as directed by your provider. Your symptoms worsen, or they don t go away within a few days of starting treatment. You have new pain in the lower belly or pelvic region. You have side effects that bother you or a reaction to the cream or pills you re presc ribed. You or any partners you have sex with have new symptoms, suchas a rash, joint pain, or sores. Date Last Reviewed: 05/18/201719994802-1937 [employer]. [address] [place] [address]. All righ ts reserved. This information is not intended as a substitute for professional medical care. Always follow your healthcare professional's instructions. This note was dictated using [employer] voice recognition software. Occasional wrong- word or s ound-alike substitutions may have occurred due to the inherent limitations of voice recognit ion software. Please read the chart carefully and recognize, using context, where these subs titutions have occurred. documented in this en counter Plan of Treatment Not on filedocumented as of this encounter Procedures + +--------+ + + + | Procedure Name | Priori | Date/Time | Associated Diagnosis | Comments | | | ty | | | | + +--------+ + + + | C. TRACHOMATIS AND | STAT | 06/08/2018 | Acute vaginitis | Results for this | | N. GONORRHOEAE, NAAT | | 10:20 AM | | procedure are in the | | ([facility]) | | PDT | | results section. | + +--------+ + + + | VAGINAL PATHOGENS | STAT | 06/08/2018 | Acute vaginitis | Results for this | | DNA DIRECT PROBE | | 10:19 AM | | procedure are in the | | | | PDT | | results section. | + +--------+ + + + | POCT URINALYSIS, | Routin | 06/08/2018 | Acute vaginitis | Results for this | | AUTO WITH CONF | e | 10:08 AM | | procedure are in the | | | | PDT | | results section. | + +--------+ + + + | POCT TEST, | Routin | 06/08/2018 | Acute vaginitis | Results for this | | URINE, QUAL | e | 10:08 AM | | procedure are in the | | | | PDT | | results section. | + +--------+ + + + documented in this encounter Results C. trachomatis and N. gonorrhoeae, NAAT ([facility]TIM[facility]) (06/08/2018 10:20 AM PDT) + + + + + [...] | Negative | REFERENCE | | | gonorrhoeae | | | LAB [facility] | | | rRNA PCR | | | - [facility] | | + + + + + + + + | Specimen | + + | Tissue - Female | | genital tract | | structure (body | | structure) | + + + + + | Narrative | Performed At | + + + | Performed at: [address] - [facility] [address], | REFERENCE LAB | | [place], [place] [id number] Die Cast Supervisor: Giacomo Mccord MD, Phone: | EMIR GUTIERREZ | | [phone] | | + + + + + + + + | Performing | Address | City/State/Zipcode | Phone Number | | Organization | | | | + + + + + | REFERENCE LAB | [address] | [place] [address] | [phone] | | [facility] | [address] | | | + + + + + Vaginal Path DNA dir probe (06/08/2018 10:19 AM PDT) + + + + + + | Component | Value | Ref Range | Performed | Pathologist | | | | | At | Signature | + + + + + + | Ericka SP | Positive (A) | Negative | [facility] | | | DNA Genital | | | [facility] | | | | [facility] | | [facility] | | | | | [facility] | | + + + + + + | Gardnerella | Negative | Negative | [facility] | | | vaginalis | | | [facility] | | | [facility] | | | [facility] | | | | | [facility] | | | | | | [facility] | | + + + + + + | Trichomonas | Negative | Negative | [facility] | | | Vaginalis | | | [facility] | | | [facility] | | | [facility] | | | | | | [facility] | | | | | | [facility] [...] + + + | [facility] | [address] | [place] | [phone] | | [facility] | | [address] | | | [facility] | | | | + + + + + POCT Test, Urine, QUAL (06/08/2018 10:08 AM PDT) + + + + + + | Component | Value | Ref Range | Performed | Pathologist | | | | | At | Signature | + + + + + + | | Negative | Negative | [facility] | | | Test, | | | [facility] | | | Urine, POC | | | [facility] | | | | | | LAB[facility]AT[facility] | | + + + + + + | Internal QC | Acceptable | Acceptable | [facility] | | | | | | [facility] | | | | | | [facility] | | | | | | [facility]ATORY | | + + + + + + | Specific | | 1.010, 1.015, | [facility] | | | [place], | | 1.020, 1.025 | [facility] | | | POC | | | CORE | | | | | | LABORATORY | | + + + + + + | Lot Number | [id number] | | [facility] | | | | | | [facility] | | | | | | [facility]ORE | | | | | | [facility]ATORY | | + + + + + + | Expiration | 07/27/2019 | | [facility] | | | Date | | | [facility] | | | | | | [facility] | | | | | | LAB[facility]ATORY | | + + + + + + + + | Specimen | + + | Urine | + + + + + + + | Performing | Address | City/State/Zipcode | Phone Number | | Organization | | | | + + + + + | [facility] | [address] [place] [address] [place] | [place] [address] | [phone] | | [facility] | | | | | [facility] | | | | + + + + + POCT Urinalysis Dipstick Automated (06/08/2018 10:08 AM PDT) + + + + + [...] + + + + | Clarity, | Hazy | | | | | UA, POC [...] + + + + | Ketones, | Trace (A) | Negative, 100 | | | | UA, POC | | mg/dL | | | + + + + + + | Specific | 1.015 | 1.001 - 1.030 | | | | [place], | | | | | | UA, POC | | | | | + + + + + + | Blood, UA, | Negative | Negative | | | | POC | | | | | + + + + + + | pH, UA, POC | 7.5 | 5.0, 6.0, 7.0, | | | [...] + + + + | Leukocyte | Small (A) | Negative | | | | Esterase, [...] + + | Urine | + + documented in this encounter Visit Diagnoses + + | Diagnosis | + + | Acute vaginitis - Primary Vaginitis and vulvovaginitis, unspecified | + + documented in this encounter
--- OUTSIDE RECORDS SUMMARY | ~2019-08-11 | XMS | Encounter Summary ---
Demographics + + + | Address | [address] | | | [place] [address] | + + + | Home Phone | | + + + | Preferred Language | Unknown | + + + | Marital Status | Unknown | + + + | Tenriism Affiliation | Unknown | + + + | Race | Unknown | + + + | Ethnic Group | Unknown | + + + Author + + + | Author | [facility] | | | and [place] | + + + | Organization | [facility] | | | [...] [place] | | | | | [address] | | + + + + + Care Team Providers + +------+ + | Care Night Clerk Name | Role | Phone | + +------+ + | Cyndi Bell MD | PCP | | + +------+ + Reason for Visit + + + | Reason | Comments | + + + | Referral | Dr. Bell Patient would like a referral to Dermatology. She | | | states she has a high family history of cancer and has several | | | skin spots that are worrisome to her. She has several brown spots | | | on her hands, a couple red lesions on her legs. | + + + | Medication Refill | Patient would like a refill of Kenalog cream, Imitrex. | + + + | Acne | Patient would like an rx for Clindamyclin oral for her acne. | + + + Encounter Details +--------+---------+ + + + | Date | Type | Department | Care Team | Description | +--------+---------+ + + + | 12/17/ | Office | [facility] | Jhoana Rosenbaum, | Acne, unspecified | | 2018 | Visit | [facility]ICINE [place] | [employer] [address] | acne type (Primary | | | | [address] | [place] | Dx); History of | | | | [place], [place] | [address] | miscarriage; | | | | [address] | | Excoriated eczema; | | | | [phone] | | Melasma gravidarum, | | | | | | antepartum | +--------+---------+ + + + Social History [...] + + + | Blood Pressure | 106/70 | 12/17/2017 3:03 PM | | | | | PDT | | + + + + + | Pulse | 83 | 12/17/2017 3:03 PM | | | | | PDT | | + + + + + | Temperature | 37.3 C (99.1 F) | 12/17/2017 3:03 PM | | | | | PDT | | + + + + + | Respiratory Rate | 16 | 12/17/2017 3:03 PM | | | | | PDT | | + + + + + | Oxygen Saturation | 97% | 12/17/2017 3:03 PM | | | | | PDT | | + + + + + | Inhaled Oxygen | - | - | | | Concentration | | | | + + + + + | Weight | 70.4 kg (155 lb 3.3 | 12/17/2017 3:03 PM | | | | oz) | PDT | | + + + + + | Height | 170.2 cm (5' 7") | 12/17/2017 3:03 PM | | | | | PDT | | + + + + + | Body Mass Index | 24.31 | 12/17/2017 3:03 PM | | | | | PDT | | + + + + + documented in this encounter Patient Instructions Patient Instructions Jhoana Rosenbaum ARNP - 12/17/2017 3:40 PM PDT Controlling Adult or AdolescentAcne Look for water-based, oil-free skin care products. These are less likely to clog your pores . You stand the best chance of controlling your acne if you follow your treatment plan. Be pa tient. Acne often takes months to improve, not days or weeks. Ask yourhealthcare provider when you can expect your skin to look better. If you don t see results by your goal date, call your healthcare provider. He or she may want to give you some other type of treatment. Using skin care products and cosmetics Besides following your treatment plan, take care in choosing skin care products and cosmeti cs. The following tips may help: Choose gentle, oil-free soaps and facial cleansers. Avoid harsh acne scrubs, cleansers, or astringents. These types of products can irritate your skin. Ask your healthcare providerbefore buying xhqq-gmk-dubxxth acne treatments. Some of th kwaku, such as those with benzoyl peroxide or salicylic acid, can work. But theyoften have s panchito effects, such as skin getting too dry with treatments that are too strong. Read labels on makeup and moisturizers. Choose those that are water based and oil free. Look for the term noncomedogenic. It means that the product won t clog your pores. Caring for your skin The right skin care routine can help keep your skin healthy. To take good care of your skin , try these tips: Gently wash your face or other affected skin twice a day with a mild cleanser. Using you r fingertips, smooth the cleanser over your skin. Rinse your skin well. Pat it dry. If your healthcare providerhas approved any rvnn-yvo-vfdxcki acne medicine, use as dir ected. Use it after you wash your skin. Apply the medicine to all areas where you get acne. Don t just treat acne you can see now. New blemishes may be in progress but not in view ye t. Treat all the skin. Don t squeeze or pick blemishes. Acne blemishes may heal on their own. But squeezing c an cause scarring. Scars will remain after acne blemishes heal. Sponges, brushes, or other abrasive tools can irritate the skin. Avoid using them. If you use soft sponges or cloths to apply your makeup, keep them clean. Try not to touch your face. If possible, avoid clothing and equipment that blocks or rubs the face. Getting good results Learning more about acne is the first step toward controlling this condition. Know that acn e that s being treated often gets worse at first before it improves. But with proper treat ment and skin care, you can manage your acne and feel better about your skin. Date Last Reviewed: 09/18/201619991118-8739 [employer]. [address] [place] [address], [place] [address]. All righ ts reserved. This information is not intended as a substitute for professional medical care. Always follow your healthcare professional's instructions. documented in this encounter Progress Notes Jhoana Rosenbaum ARNP - 12/17/2017 2:30 PM PDTFormatting of this note might be different f rom the original. Subjective: Patient ID: Daniele Connor is a 32 y.o. female. Chief Complaint Patient presents with Referral Dr. Bell Patient would like a referral to Dermatology. She states she has a high family history of cancer and has several skin spots that are worrisome to her. She has several bro wn spots on her hands, a couple red lesions on her legs. Medication Refill Patient would like a refill of Kenalog cream, Imitrex. Acne Patient would like an rx for Clindamyclin oral for her acne. [facility] Recently established care with Dr. Bell with Dr. Lizz CORDOVA LMP 08/21/17 EDC 05/28/18 . Miscarriage and D & C performed in November 2017. She has concerns with chronic acne that has actually improved since loss of . She still has pustules and small cystic lesion on her chest. She wants to change from topic al to oral antibiotic. Currently using clindamycin 1% gel. Neutragena facial and body washes. No scrubs. Occasionally uses benzoyl peroxide. She was previously on oral clindamycin but it "really didn't work but worked better than to pical." Was changed because of . She was given penicillin for UTI and she had continued acyclovir for herpetic lesions (angeline oma herpes) during . Also has some small spots on her hands that just came up since she lost the . They are like freckles on the the thumb and wrist. She has a patch of red itchy scaling skin on the right lower leg that does well if she keep moisturizer on it but is worse if she does not. Past Medical History: Diagnosis Date Anxiety off and on through adulthood Depression 2000 Dry skin dermatitis Encounter for blood transfusion 12/26/2004 after of first child Excoriated eczema Hip joint painful on movement Low back pain Lumbar sprain Migraine with aura Neck pain Neck sprain Nonallopathic lesion of cervical region Nonallopathic lesion of head region Nonallopathic lesion of lower extremities Nonallopathic lesion of lumbar region Nonallopathic lesion of thoracic region Numbness of face Pruritus of skin Shoulder joint pain Sleep pattern disturbance Stress Tension type headache Urinary tract infectious disease Past Surgical History: Procedure Laterality Date ABDOMINAL ADHESION SURGERY 08/19/2014 DILATION AND CURETTAGE OF UTERUS 11/26/2017 miscarriage LAPAROSCOPIC APPENDECTOMY 02/02/2016 LAPAROSCOPY 08/19/2014 drainage of hemoperitoneum NOSE SURGERY 1998 reconstruction OVARIAN CYST REMOVAL Left 08/19/2014 partial Family History Problem Relation Age of Onset Arthritis Mother Depression Mother Lymphoma Mother Migraines Mother Breast cancer Mother Asthma Daughter Mental illness Daughter adhd/oppositional mood disorder Learning disability Daughter Arthritis Maternal Grandmother Alcohol abuse Maternal Grandmother Colon cancer Maternal Grandmother Migraines Maternal Grandmother Colon cancer Maternal Grandfather Breast cancer Other maternal great-grandmother Social History Social History Marital status: Significant Other Spouse name: N/A Number of children: N/A Years of education: N/A Social History Main Topics Smoking status: Former Smoker Years: 11.00 Types: Cigarettes Quit date: 09/19/2014 Smokeless tobacco: Never Used Alcohol use Yes 1 - 2 Glasses of wine per week Drug use: No Sexual activity: Yes Partners: Male control/ protection: None Other Topics Concern None Social History Narrative None Current Outpatient Prescriptions Medication Sig Dispense Refill acyclovir (ZOVIRAX) 800 mg tablet Take 800 mg by mouth Daily as needed. ammonium lactate (LAC-HYDRIN) 12% cream ammonium lactate 12 % topical cream apply to affected area twice a day PER DRY LUMPS IN SKIN clindamycin 1% gel Apply topically 2 times daily. Apply to affected areas 2 times anupam y 60 g 3 minocycline (MINOCIN,DYNACIN) 100 MG capsule Take 1 capsule by mouth 2 times daily. The n follow up with Dr. Bell in 4 weeks from starting. 60 capsule 0 SUMAtriptan (IMITREX) 100 mg tablet sumatriptan 100 mg tablet take 1 tablet by mouth once daily if needed for migraines triamcinolone (KENALOG) 0.1% cream Apply to legs daily as needed No current facility-administered medications for this visit. Allergies No active allergies Intolerance No active intolerances/contraindications Review of Systems Constitutional: Negative for chills, diaphoresis, fever, malaise/fatigue and weight loss. Respiratory: Negative. Cardiovascular: Negative. Gastrointestinal: Negative. Genitourinary: Negative for dysuria. Continuous vaginal bleeding since D & C Skin: Positive for itching and rash. Neurological: Negative for weakness. Psychiatric/Behavioral: Positive for depression. Negative for suicidal ideas. The patient i s not nervous/anxious and does not have insomnia. All other systems reviewed and are negative. Objective: BP 106/70 | Pulse 83 | Temp 37.3 C (99.1 F) (Temporal) | Resp 16 | Ht 1.702 m (5' 7 ") | Wt 70.4 kg (155 lb 3.3 oz) | LMP 08/21/2017 (Exact Date) Comment: Miscarriage and D a nd C on 11/26/17 | SpO2 97% | ? No | BMI 24.31 kg/m Physical Exam Constitutional: She is oriented to person, place, and time and well-developed, well-nourish ed, and in no distress. HENT: Head: Normocephalic. Mouth/Throat: Oropharynx is clear and moist. Eyes: Conjunctivae and EOM are normal. Pupils are equal, round, and reactive to light. No s cleral icterus. Neck: Neck supple. Cardiovascular: Normal rate, regular rhythm and normal heart sounds. Pulmonary/Chest: Breath sounds normal. No respiratory distress. Abdominal: Soft. Bowel sounds are normal. Neurological: She is alert and oriented to person, place, and time. Gait normal. Skin: Skin is warm and dry. She has a small patch of erythema on the right perez. She has some pustules and red papules on the chest. She has a constellation of small melanocytic macules on the lateral thumbs and wrists that are mirror image left to right extremity. Psychiatric: Mood, memory, affect and judgment normal. Vitals reviewed. Assessment/Plan: 1. Acne, unspecified acne type (Primary) - Minocycline HCl; Take 1 capsule by mouth 2 times daily. Dispense: 60 capsule; Refill: 0 Then follow up with Dr. Bell in 4 weeks. Continue gentle skin care. Recommend continued use of topical clindamycin gel and benzoyl peroxide for areas of pustul es and cysts. 2. Excoriated eczema Keep it moisturized. 3. History of recent miscarriage with formation of chloasma, or melasma This is due to hormonal changes affecting the melanocytes in the skin. Return in about 4 weeks (around 01/14/2018) for follow up acne treatment with your PCP, Js fagan MD. Patient understands, accepts, and agrees with this plan. Greater than 25 minutes spent with patient regarding the above mentioned diagnoses in couns eling and coordination of care. Portions of this report were transcribed using [employer] voice recognition soft mercedes. Although effort was made in correcting the errors; grammatical and sound alike errors may still be present. documented in this encounter Plan of Treatment Not on filedocumented as of this encounter Visit Diagnoses + + | Diagnosis | + + | Acne, unspecified acne type - Primary | + + | History of miscarriage Personal history of other genital system and obstetric | | disorders | + + | Excoriated eczema | + + | Melasma gravidarum, antepartum | + + documented in this encounter
--- OUTSIDE RECORDS SUMMARY | ~2019-08-11 | XMS | Encounter Summary ---
Demographics + + + | Address | [address] | | | [place] [address] | + + + | Home Phone | | + + + | Preferred Language | Unknown | + + + | Marital Status | Unknown | + + + | Spiritism Affiliation | Unknown | + + + | Race | Unknown | + + + | Ethnic Group | Unknown | + + + Author + + + | Author | [facility] | | | and [place] | + + + | Organization | [facility] | | [...] [place] | | | | | [address] | | + + + + + Care Team Providers + +------+ + | Care Mixer And Scaler Name | Role | Phone | + +------+ + | Cyndi Bell MD | PCP | | + +------+ + Reason for Visit +--------+ + | Reason | Comments | +--------+ + | LABS | | +--------+ + Encounter Details +--------+ + + + + | Date | Type | Department | Care Team | Description | +--------+ + + + + | 05/18/ | Telephone | [facility] | Melody Bruner, | LABS | | 2019 | | MEDICINE [place] | [address] | | | | | [address] | [place] | | | | | [place] | [address] | | | | | [address] | | | | | | [phone] | | | +--------+ + + + [...]
--- OUTSIDE RECORDS SUMMARY | ~2019-08-11 | XMS | Encounter Summary ---
Demographics + + + | Address | [address] | | | [place] [address] | + + + | Home Phone | | + + + | Preferred Language | Unknown | + + + | Marital Status | Unknown | + + + | Christian Affiliation | Unknown | + + + [...] [place] | | | | | [address] | | + + + + + Care Team Providers + +------+ + | Care Ceiling Cleaner Name | Role | Phone | + +------+ + | Cyndi Bell MD | PCP | | + +------+ + Reason for Visit +--------+ + | Reason | Comments | +--------+ + | Other | concerns | +--------+ + Encounter Details +--------+ + + + + | Date | Type | Department | Care Team | Description | +--------+ + + + + | 12/18/ | Telephone | [facility] | Cyndi Bell MD | Other ( | | 2019 | | [facility] | [address] | concerns) | | | | [address] | [place] | | | | | [place] | [address] | | | | | [address] | | | | | | [phone] | | | +--------+ + + + [...]
--- OUTSIDE RECORDS SUMMARY | ~2019-08-11 | XMS | Encounter Summary ---
Demographics + + + | Address | [address] | | | [place] [address] | + + + | Home Phone | | + + + | Preferred Language | Unknown | + + + | Marital Status | Unknown | + + + | Methodist Affiliation | Unknown | + + + | Race | Unknown | + + + | Ethnic Group | Unknown | + + + Author + + + | Author | [facility] | | | and [place] | + + + | Organization | [facility] | | [...] [place] | | | | | [address] | | + + + + + Care Team Providers + +------+ + | Care Industrial Illuminating Engineer Name | Role | Phone | + [...] + + | 10/20/ | Telephone | [facility] | Cyndi Bell MD | Medication Prior | | 2017 | | MEDICINE [place] | [address] | Authorization | | | | [address] | [facility] [place] | (Clindamycin 1% gel) | | | | [place], [place] | [address] | | | | | [address] | | | | | | [phone] | | | +--------+ + + + [...]
--- OUTSIDE RECORDS SUMMARY | ~2019-08-11 | XMS | Encounter Summary ---
Demographics + + + | Address | [address] | | | [place] [address] | + + + | Home Phone | | + + + | Preferred Language | Unknown | + + + | Marital Status | Unknown | + + + | Congregation Affiliation | Unknown | + + + | Race | Unknown | + + + | Ethnic Group | Unknown | + + + Author + + + | Author | [facility] | | | and [place] | + + + | Organization | [facility] | | | and [...] [place] | | | | | [address] | | + + + + + Care Team Providers + +------+ + | Care Mobile Lounge Driver Name | Role | Phone | + +------+ + | Cyndi Bell MD | PCP | | + +------+ + Encounter Details +--------+ + + + + | Date | Type | Department | Care Team | Description | +--------+ + + + + | 12/25/ | Abstract | [facility] | Cyndi Bell MD | | | 2019 | | MEDICINE [place] | [address] | | | | | [address] | [place] | | | | | [place] | [address] | | | | | [address] | | | | | | [phone] | | | +--------+ + + + [...] +--------+ + + + | EXTERNAL LAB: [facility] | Routin | 08/04/2018 | | Results for this | | | e | | | procedure are in the | | | | | | results section. | + +--------+ + + + documented in this encounter Results External Lab: TSH (08/04/2018) + +-------+ + + + | Component | Value | Ref Range | Performed | Pathologist | | | | | At | Signature | + +-------+ + + + | TSH, | 2.019 | 0.34 - 5.6 | EXTERNAL | | | External | | | LAB | | + +-------+ + + + + + | Specimen | + + | Blood | + + + + | Resulting Agency Comment | + + | [place] [facility] | + + + +---------+ + + | Performing | Address | City/State/Zipcode | Phone Number | | Organization | | | | + +---------+ + + | EXTERNAL LAB | | | | + +---------+ + + documented in this encounter Visit Diagnoses Not on filedocumented in this encounter"
--- OUTSIDE RECORDS SUMMARY | ~2019-08-11 | XMS | Encounter Summary ---
Demographics + + + | Address | [address] | | | [place] [address] | + + + | Home Phone | | + + + | Preferred Language | Unknown | + + + | Marital Status | Unknown | + + + | Methodist Affiliation | Unknown | + + + | Race | Unknown | + + + | Ethnic Group | Unknown | + + + Author + + + | Author | [facility] | | | and [place] | + + + | Organization | [facility] | | | [...] [place] | | | | | [address] | | + + + + + Care Team Providers + +------+ + | Care Lamp Shade Joiner Name | Role | Phone | + +------+ + | Cyndi Bell MD | PCP | | + +------+ + Reason for Visit + + + | Reason | Comments | + + + | Urinary Tract | | | Infection | | + + + Encounter Details +--------+ + + + + | Date | Type | Department | Care Team | Description | +--------+ + + + + | 07/14/ | Telephone | [facility] | Cyndi Bell MD | Urinary Tract | | 2019 | | MEDICINE [place] | [address] | Infection | | | | [address] | [place] | | | | | [place] | [address] | | | | | [address] | | | | | | [phone] | | | +--------+ + + + [...]
--- OUTSIDE RECORDS SUMMARY | ~2019-08-11 | XMS | Encounter Summary ---
Demographics + + + | Address | [address] | | | [place] [address] | + + + | Home Phone | | + + + | Preferred Language | Unknown | + + + | Marital Status | Unknown | + + + | Uatsdin Affiliation | Unknown | + + + [...] [place] | | | | | [address] | | + + + + + Care Team Providers + +------+ + | Care Electronic Warfare Officer Name | Role | Phone | + +------+ + | Cyndi Bell MD | PCP | | + +------+ + Encounter Details +--------+ + + + + | Date | Type | Department | Care Team | Description | +--------+ + + + + | 07/07/ | Abstract | [facility] | Cyndi Bell MD | | | 2019 | | MEDICINE [place] | [address] | | | | | [address] | [place] | | | | | [place] | [address] | | | | | [address] | | | | | | [phone] | | | +--------+ + + + [...] +--------+ + + + | EXTERNAL LAB: TSH | Routin | 06/22/2019 | | Results for this | | | e | | | procedure are in the | | | | | | results section. | + +--------+ + + + | EXTERNAL LAB: T4, | Routin | 06/22/2019 | | Results for this | | FREE | e | | | procedure are in the | | | | | | results section. | + +--------+ + + + | T3, FREE | Routin | 06/22/2019 | | Results for this | | | e | | | procedure are in the | | | | | | results section. | + +--------+ + + + documented in this encounter Results T3, Free (06/22/2019) + +-------+ + + + | Component | Value | Ref Range | Performed | Pathologist | | | | | At | Signature | + +-------+ + + + | T3, Free | 2.95 | 2.5 - 4.3 | | | + +-------+ + + + + + | Specimen | + + | Blood | + + External Lab: T4, Free (06/22/2019) + +-------+ + + + | Component | Value | Ref Range | Performed | Pathologist | | | | | At | Signature | + +-------+ + + + | Free T4, | 1.17 | 0.71 - 1.70 | | | | External | | | | | + +-------+ + + + External Lab: TSH (06/22/2019) + +-------+ + + + | Component | Value | Ref Range | Performed | Pathologist | | | | | At | Signature | + +-------+ + + + | TSH, | 2.04 | 0.27 - 4.2 | | | | External | | | | | + +-------+ + + + + + | Specimen | + + | Blood | + + documented in this encounter Visit Diagnoses Not on filedocumented in this encounter"
--- OUTSIDE RECORDS SUMMARY | ~2019-08-11 | XMS | Encounter Summary ---
Demographics + + + | Address | [address] | | | [place] [address] | + + + | Home Phone | | + + + | Preferred Language | Unknown | + + + | Marital Status | Single | + + + | Hoahaoism Affiliation | Unknown | + + + | Race | White | + + + | Ethnic Group | Not or | + + + Author + + + | Organization | Unknown | + + + | Address | Unknown | + + + | Phone | Unavailable | + + + Support + + +---------+ + | Name | Relationship | Address | Phone | + + +---------+ + | Bev Meredith | ECON | Unknown | | + + +---------+ + Care Team Providers + +------+ + | Care Processes Chemical Design Engineer Name | Role | Phone | + +------+ + PCP | Unavailable | + +------+ + Encounter Details +--------+ + + + + | Date | Type | Department | Care Team | Description | +--------+ + + + + | 06/10/ | Results | | [facility] | | | 2002 | Only | | | | +--------+ + + [...] | + +--------+ + + + | GC/CHLAMYDIA PROBE, | Routin | 06/10/2003 | | Results for this | | DNA | e | 12:48 PM | | procedure are in the | | | | PDT | | results section. | + +--------+ + + + documented in this encounter Results DNA PROBE, GC/CHLAM (06/10/2003 12:48 PM PDT) + + + + + + | Component | Value | Ref Range | Performed | Pathologist | | | | | At | Signature | + + + + + + | SOURCE BODY | Cervix | | | | | SITE | | | | | + + + + + + | GC/CHLAMYDI | Negative | | | | | A PROBE | | | | | + + + + + + + + | Specimen | + + | | + + + + + + + | Performing | Address | City/State/Zipcode | Phone Number | | Organization | | | | + + + + + | [facility] | [address] | [place] [address] | | | [facility] | | | | + + + + + documented in this encounter Visit Diagnoses Not on filedocumented in this encounter"
--- OUTSIDE RECORDS SUMMARY | ~2019-08-11 | XMS | Encounter Summary ---
Demographics + + + | Address | [address] | | | [place] [address] | + + + | Home Phone | | + + + | Preferred Language | Unknown | + + + | Marital Status | Unknown | + + + | Holiness Affiliation | Unknown | + + + | Race | Unknown | + + + | Ethnic Group | Unknown | + + + Author + + + | Author | [facility] | | | and [place] | + + + | Organization | [facility] | | [...] [place] | | | | | [address] | | + + + + + Care Team Providers + +------+ + | Care Executive Search Consultant Name | Role | Phone | [...] | | | | [place] | [address] | | | | | [address] | | | | | | [phone] | | | +--------+ + + + [...] + + + | [facility] | [address] | [place] | [phone] | | [facility] | | [address] | | | [facility] | | | | + + + + + documented in this encounter Visit Diagnoses + + | Diagnosis | + + | Miscarriage - Primary Unspecified spontaneous without mention of | | complication | + + documented in this encounter"
--- OUTSIDE RECORDS SUMMARY | ~2019-08-11 | XMS | Encounter Summary ---
Demographics + + + | Address | [address] | | | [place] [address] | + + + | Home Phone | | + + + | Preferred Language | Unknown | + + + | Marital Status | Unknown | + + + | Yarsanism Affiliation | Unknown | + + + | Race | Unknown | + + + | Ethnic Group | Unknown | + + + Author + + + | Author | [facility] | | | and [place] | + + + | Organization | [facility] | | | [...] [place] | | | | | [address] | | + + + + + Care Team Providers + +------+ + | Care Overnight Stocker Name | Role | Phone | + +------+ + | Cyndi Bell MD | PCP | | + +------+ + Reason for Visit + + + | Reason | Comments | + + + | Medication Refill | | + + + Encounter Details +--------+ + + + + | Date | Type | Department | Care Team | Description | +--------+ + + + + | 07/27/ | Telephone | [facility] | Cyndi Bell MD | Medication Refill | | 2019 | | MEDICINE [place] | [address] | | | | | [address] | [place] | | | | | [place] | [address] | | | | | [address] | | | | | | [phone] | | | +--------+ + + + [...]
--- OUTSIDE RECORDS SUMMARY | ~2019-08-11 | XMS | Encounter Summary ---
Demographics + + + | Address | [address] | | | [place] [address] | + + + | Home Phone | | + + + | Preferred Language | Unknown | + + + | Marital Status | Unknown | + + + | Spiritism Affiliation | Unknown | + + + | Race | Unknown | + + + | Ethnic Group | Unknown | + + + Author + + + | Author | [facility] | | | and [place] | + + + | Organization | [facility] | | | [...] [place] | | | | | [address] | | + + + + + Care Team Providers + +------+ + | Care Drafter Plumbing Name | Role | Phone | + +------+ + | Cyndi Bell MD | PCP | | + +------+ + Reason for Visit + + + | Reason | Comments | + + + | Medication Refill | | + + + Encounter Details +--------+--------+ + + + | Date | Type | Department | Care Team | Description | +--------+--------+ + + + | 07/21/ | Refill | [facility] | Cyndi Bell MD | Medication Refill | | 2019 | | MEDICINE [place] | [address] | | | | | [address] | [place] | | | | | [place] | [address] | | | | | [address] | | | | | | [phone] | | | +--------+--------+ + + + Social History + + [...] + | Diagnosis | + + | Cystic acne Other acne | + + documented in this encounter"
--- OUTSIDE RECORDS SUMMARY | ~2019-08-11 | XMS | Encounter Summary ---
Demographics + + + | Address | [address] | | | [place] [address] | + + + | Home Phone | | + + + | Preferred Language | Unknown | + + + | Marital Status | Unknown | + + + | Synagogue Affiliation | Unknown | + + + | Race | Unknown | + + + | Ethnic Group | Unknown | + + + Author + + + | Author | [facility] | | | and [place] | + + + | Organization | [facility] | | | [...] [place] | | | | | [address] | | + + + + + Care Team Providers + +------+ + | Care Supervisor Maintenance And Custodians Name | Role | Phone | + +------+ + | No, Physician | PCP | Unavailable | + +------+ + Reason for Visit +--------+ + | Reason | Comments | +--------+ + | Other | RM5; IUD removed 3 weeks ago, 4days irregular uterine bleeding | | | now stopped, low abd bloating, peressure, cramping, increased | | | urinary frequency | +--------+ + Encounter Details +--------+---------+ + + + | Date | Type | Department | Care Team | Description | +--------+---------+ + + + | 09/17/ | Office | [facility] | [facility], | Pelvic pain (Primary | | 2018 | Visit | CARE [address] | Luis Matute MD | Dx) | | | | [place], [place] | [address] | | | | | [address] | [place], [place] | | | | | [phone] | [address] | | | | | | | | +--------+---------+ + + + [...] + + + | Blood Pressure | 119/72 | 09/17/2017 9:56 AM | | | | | PST | | + + + + + | Pulse | 70 | 09/17/2017 9:56 AM | | | | | PST | | + + + + + | Temperature | 36.6 C (97.8 F) | 09/17/2017 9:56 AM | | | | | PST | | + + + + + | Respiratory Rate | 16 | 09/17/2017 9:56 AM | | | | | PST | | + + + + + | Oxygen Saturation | 99% | 09/17/2017 9:56 AM | | | | | PST | | + + + + + | Inhaled Oxygen | - | - | | | Concentration | | | | + + + + + | Weight | 72.8 kg (160 lb 7.9 | 09/17/2017 9:56 AM | | | | oz) | PST | | + + + + + | Height | 170.2 cm (5' 7") | 09/17/2017 9:56 AM | | | | | PST | | + + + + + | Body Mass Index | 25.14 | 09/17/2017 9:56 AM | | | | | PST | | + + + + + documented in this encounter Patient Instructions Patient Instructions Luis Adams MD - 09/17/2017 9:45 AM PST Pelvic Pain, Uncertain Cause Pelvic pain is pain felt in the lowest part of the belly (abdomen) and between the hipbones . The pain may be acute. This means it occurred suddenly and recently. Or the pain may be ch ronic. This means it has occurred for 6 months or longer. There are many possible causes of pelvic pain. The pain may be due to a problem in the fema le reproductive system (pictured here). Or, it may be due to a problem in the digestive, uri nary, or musculoskeletal systems. Based on your visit today, the exact cause of your pelvic pain is not certain. Your conditi on does not appear to be serious at this time. But it is important for you to keep watching for any new symptoms or worsening of your condition. General care Your healthcare provider may advise a number of ways to help manage your pain. These can in clude: Taking ygcq-llu-hpvybld pain medicine. Stronger pain medicine may also be prescribed, if needed. Applying heat to the pelvic area. Use a heating pad or a hot pack. Taking a hot bath may also help. Getting plenty of rest. Making certain lifestyle changes. These can include practicing good posture and getting regular exercise. (Studies have shown that these changes help reduce pelvic pain in some wom en.) Seeing a physical therapist or pain specialist. These healthcare providers can discuss o ther ways to manage pain with you. Follow-up care Follow up with your healthcare provider, or as advised. When to seek medical advice Call your healthcare provider right away if any of the following occur: Fever of 100.4F or higher, or as directed by your healthcare provider Pain worsens or you have sudden, severe pain or new pain Nausea, vomiting, sweating, or restlessness Dizziness or fainting Unusual vaginal discharge Abnormal vaginal bleeding (especially bleeding after menopause) Date Last Reviewed: 01/26/201519992723-6073 [employer] [place] [address], [place] [address]. All [facility] reserved. This information is not intended as a substitute for professional medical care. Always follow your healthcare professional's instructions. documented in this encounter Progress Notes Luis Adams MD - 09/17/2017 9:45 AM PSTFormatting of this note might be di fferent from the original. Subjective: Chief Complaint: Other (RM5; IUD removed 3 weeks ago, 4days irregular uterine bleeding now stopped, low abd bloating, peressure, cramping, increased urinary frequency) Daniele is a 32 y.o. female who comes in complaining of pelvic problems. HPI this healthy 32-year-old presents 3 weeks after removal of PARAGARD IUD. She intends t o become . She did try NuvaRing for about 3-4 days but noted irritability which is typical for her. She has a history of being very sensitive to hormone treatments.. Her vag inal bleeding has been irregular. She would be 2 days late today on her cycle but had 4 day s of bleeding about 2 weeks ago. She has had some increased urinary frequency no dysuria lo w abdominal bloating/pressure/cramping. This is low-grade not as bad as menstrual cramps. She has some right lower back aching and left anterior pelvic aching. She did a UPT at home yesterday that was negative. She is monogamous and has no concern for STI. Patient's medications, allergies, past medical, surgical, social and family histories were reviewed and updated as appropriate. OB history TOP1 surgical history laparoscopic ap pendectomy September 2016 and laparoscopic left ovarian cystectomy September 2015. No history of PCO S. ROS no fevers chills nausea vomiting up her abdominal pain diarrhea Objective: BP 119/72 | Pulse 70 | Temp 36.6 C (97.8 F) (Temporal) | Resp 16 | Ht 1.702 m (5' 7 ") | Wt 72.8 kg (160 lb 7.9 oz) | LMP 08/21/2017 (Exact Date) | SpO2 99% | ? No Comment: with 4 days irregular bleeding 09/06/17 throuh 09/09/17 | BMI 25.14 kg/m Physical Exam NAD VSS Abdomen flat soft nontender no masses no HSM Pelvic exam shaved external BUS normal vagina normal cervix closed no lesions bleeding or d ischarge no CMT bimanual small nontender uterus which is freely mobile, adnexa are free of m ass or pain. UA dip negative UPT negative No results found for this or any previous visit. Assessment and Plans: 1. Pelvic pain This sounds like probably related to IUD removal with irregular bleeding bloating and cramp ing. She could have a very early . There is no sign of pelvic infection. She is taking supplemental folate acid which I endorsed. She will keep track of periods to urine test as needed and return for care once s he has a positive or if any symptoms of concern occur. This note was dictated using [employer] voice recognition software. Occasional wrong- word or s ound-alike substitutions may have occurred due to the inherent limitations of voice recognit ion software. Please read the chart carefully and recognize, using context, where these subs titutions have occurred. documented in this encounter Plan of Treatment Not on filedocumented as of this encounter Procedures + +--------+ + + + | Procedure Name | Priori | Date/Time | Associated Diagnosis | Comments | | | ty | | | | + +--------+ + + + | POCT TEST, | Routin | 09/17/2017 | Pelvic pain | Results for this | | URINE, QUAL | e | 10:44 AM | | procedure are in the | | | | PST | | results section. | + +--------+ + + + | POCT URINALYSIS, | Routin | 09/17/2017 | Pelvic pain | Results for this | | AUTO WITH CONF | e | 10:43 AM | | procedure are in the | | | | PST | | results section. | + +--------+ + + + documented in this encounter Results POCT Test, Urine, QUAL (09/17/2017 10:44 AM PST) + + + + + + | [...] | Specific | | 1.010, 1.015, | | | | [place], | | 1.020, 1.025 | | | | POC | | | | | + + + + + + | Lot Number | [id number] | | | | + + + + + + | Expiration | 2018-10-20 | | | | | Date | | | | | + + + + + + + + | Specimen | + + | Urine | + + POCT Urinalysis Dipstick Automated (09/17/2017 10:43 AM PST) + + + + + + | Component | Value | Ref Range | Performed | Pathologist | | | | | At | Signature | + + + + + + | Color, UA, | Yellow | Yellow, Light | | | | [...] + + + + | Specific | 1.010 | 1.001 - 1.030 | | | | [place], | | | | | | UA, [...] + | Diagnosis | + + | Pelvic pain - Primary | + + documented in this encounter
--- OUTSIDE RECORDS SUMMARY | ~2019-08-11 | XMS | Encounter Summary ---
Demographics + + + | Address | [address] | | | [place] [address] | + + + | Home Phone | | + + + | Preferred Language | Unknown | + + + | Marital Status | Unknown | + + + | Samaritan Affiliation | Unknown | + + + | Race | Unknown | + + + | Ethnic Group | Unknown | + + + Author + + + | Author | [facility] | | | and [place] | + + + | Organization | [facility] | | [...] [place] | | | | | [address] | | + + + + + Care Team Providers + +------+ + | Care Air Cargo Specialist Name | Role | Phone | + +------+ + | Cyndi Bell MD | PCP | | + +------+ + Reason for Visit +---------+ + | Reason | Comments | +---------+ + | Results | | +---------+ + Encounter Details +--------+ + + + + | Date | Type | Department | Care Team | Description | +--------+ + + + + | 06/12/ | Telephone | [facility] [place] [facility] | Sigrid Jose, | Results | | 2018 | | CARE [address] | [address] | | | | | [place] | [place] | | | | | [address] | [address] | | | | | [phone] | | | +--------+ + + + [...]
--- OUTSIDE RECORDS SUMMARY | ~2019-08-11 | XMS | Encounter Summary ---
Demographics + + + | Address | [address] | | | [place] [address] | + + + | Home Phone | | + + + | Preferred Language | Unknown | + + + | Marital Status | Unknown | + + + | Anabaptism Affiliation | Unknown | + + + | Race | Unknown | + + + | Ethnic Group | Unknown | + + + Author + + + | Author | [facility] | | | and [place] | + + + | Organization | [facility] | | | [...] [place] | | | | | [address] | | + + + + + Care Team Providers + +------+ + | Care Job Coach Name | Role | Phone | + [...] | +--------+ + + + + | 06/21/ | Telephone | [facility] [place] [facility] | Cyndi Bell MD | Lab Order | | 2019 | | MEDICINE [place] | [address] | | | | | [address] | [place] | | | | | [place], [place] | [address] | | | | | [address] | | | | | | [phone] | | | +--------+ + + + [...]
--- OUTSIDE RECORDS SUMMARY | ~2019-08-11 | XMS | Encounter Summary ---
Demographics + + + | Address | [address] | | | [place] [address] | + + + | Home Phone | | + + + | Preferred Language | Unknown | + + + | Marital Status | Unknown | + + + | Hinduism Affiliation | Unknown | + + + | Race | Unknown | + + + | Ethnic Group | Unknown | + + + Author + + + | Author | [facility] | | | and [place] | + + + | Organization | [facility] | | [...] [place] | | | | | [address] | | + + + + + Care Team Providers + +------+ + | Care Performing Artist Name | Role | Phone | + +------+ + | Cyndi Bell MD | PCP | | + +------+ + Encounter Details +--------+ + + + + | Date | Type | Department | Care Team | Description | +--------+ + + + + | 01/19/ | Orders Only | [facility] [place] [facility] | Melody Bruner, | Miscarriage (Primary | | 2019 | | MEDICINE [place] | [address] | Dx) | | | | [address] | [place] | | | | | [place] | [address] | | | | | [address] | | | | | | [phone] | | | +--------+ + + + [...] of this encounter Results HCG, Serum, Quant (01/22/2019 3:39 PM PDT) + + + + + + | Component | Value | Ref Range | Performed | Pathologist | | | | | At | Signature | + + + + + + | hCG Quant, | 79 (H)Comment: [facility] | 0 - 6 mIU/mL [...] + + + | [facility] | [address] | [place] | [phone] | | [facility] | | [address] | | | [facility] | | | | + + + + + documented in this encounter Visit Diagnoses + + | Diagnosis | + + | Miscarriage - Primary Unspecified spontaneous without mention of | | complication | + + documented in this encounter"
--- OUTSIDE RECORDS SUMMARY | ~2019-08-11 | XMS | Encounter Summary ---
Demographics + + + | Address | [address] | | | [place] [address] | + + + | Home Phone | | + + + | Preferred Language | Unknown | + + + | Marital Status | Single | + + + | Latter-Day Affiliation | Unknown | + + + | Race | White | + + + | Ethnic Group | Not or | + + + Author + + + | Author | [facility] | + + + | Organization | [facility] | + + + | Address | Unknown | + + + | Phone | Unavailable | + + + Support + + +---------+ + | Name | Relationship | Address | Phone | + + +---------+ + | Bev Meredith | ECON | Unknown | | + + +---------+ + Care Team Providers + +------+ + | Care Pin Sticker Name | Role | Phone | + +------+ + | JezNohelia MARLO | PCP | | + +------+ + Encounter Details +--------+ + + + + | Date | Type | Department | Care Team | Description | +--------+ + + + + | 06/09/ | Document-Sc | Dermatology at | Aleksandra Bello, | | | 2014 | anned | [facility]ady [facility] | ,PhD [address] | | | | [address] | [place], [place] | | | | | , [place] | [address] | | | | | [address] | [phone] | | | | | [phone] | | | +--------+ + + + [...]
--- OUTSIDE RECORDS SUMMARY | ~2019-08-11 | XMS | Encounter Summary ---
Demographics + + + | Address | [address] | | | [place] [address] | + + + | Home Phone | | + + + | Preferred Language | Unknown | + + + | Marital Status | Unknown | + + + | Christianity Affiliation | Unknown | + + + | Race | Unknown | + + + | Ethnic Group | Unknown | + + + Author + + + | Author | [facility] | | | and [place] | + + + | Organization | [facility] | | | [...] [place] | | | | | [address] | | + + + + + Care Team Providers + +------+ + | Care Home Appliance Tech Name | Role | Phone | + [...] | 06/17/ | Telephone | [facility] | Melody Bruner, | LABS | | 2018 | | MEDICINE [place] | [address] | | | | | [address] | [place] | | | | | [place] | [address] | | | | | [address] | | | | | | [phone] | | | +--------+ + + + [...]
--- OUTSIDE RECORDS SUMMARY | ~2019-08-11 | XMS | Encounter Summary ---
Demographics + + + | Address | [address] | | | [place] [address] | + + + | Home Phone | | + + + | Preferred Language | Unknown | + + + | Marital Status | Unknown | + + + | Jainism Affiliation | Unknown | + + + | Race | Unknown | + + + | Ethnic Group | Unknown | + + + Author + + + | Author | [facility] | | | and [place] | + + + | Organization | [facility] | | [...] [place] | | | | | [address] | | + + + + + Care Team Providers + +------+ + | Care Supervisor International Reservations Name | Role | Phone | + [...] + + | 12/18/ | Telephone | [facility] | Cyndi Bell MD | Other ( | | 2019 | | [facility] | [address] | concerns) | | | | [address] | [place] | | | | | [place] | [address] | | | | | [address] | | | | | | [phone] | | | +--------+ + + + [...]
--- OUTSIDE RECORDS SUMMARY | ~2019-08-11 | XMS | Encounter Summary ---
Demographics + + + | Address | [address] | | | [place] [address] | + + + | Home Phone | | + + + | Preferred Language | Unknown | + + + | Marital Status | Unknown | + + + | Evangelical Affiliation | Unknown | + + + | Race | Unknown | + + + | Ethnic Group | Unknown | + + + Author + + + | Author | [facility] | | | and [place] | + + + | Organization | [facility] | | | [...] [place] | | | | | [address] | | + + + + + Care Team Providers + +------+ + | Care Director Of Field Coordination Name | Role | Phone | + [...] | 05/18/ | Telephone | [facility] | Melody Bruner, | LABS | | 2019 | | MEDICINE [place] | [address] | | | | | [address] | [place] | | | | | [place] | [address] | | | | | [address] | | | | | | [phone] | | | +--------+ + + + [...]
--- OUTSIDE RECORDS SUMMARY | ~2019-08-11 | XMS | Encounter Summary ---
Demographics + + + | Address | [address] | | | [place] [address] | + + + | Home Phone | | + + + | Preferred Language | Unknown | + + + | Marital Status | Single | + + + | Sikh Affiliation | Unknown | + + + [...] Team Providers + +------+ + | Care Operations Lieutenant Name | Role | Phone | + [...] | + + + + + | [facility] | [address] | [place] [address] | | | LAB-[facility] | | | | + + + + + documented in this encounter Visit Diagnoses Not on filedocumented in this encounter"
--- OUTSIDE RECORDS SUMMARY | ~2019-08-11 | XMS | Encounter Summary ---
Demographics + + + | Address | [address] | | | [place] [address] | + + + | Home Phone | | + + + | Preferred Language | Unknown | + + + | Marital Status | Unknown | + + + | Jewish Affiliation | Unknown | + + + | Race | Unknown | + + + | Ethnic Group | Unknown | + + + Author + + + | Author | [facility] | | | and [place] | + + + | Organization | [facility] | | | [...] [place] | | | | | [address] | | + + + + + Care Team Providers + +------+ + | Care Lehr Cutter Name | Role | Phone | + [...] | | | | [place] | [address] | | | | | [address] | | | | | | [phone] | | | +--------+ + + + [...] + + + | [facility] | [address] | [place] | [phone] | | [facility] | | [address] | | | [facility] | | | | + + + + + documented in this encounter Visit Diagnoses + + | Diagnosis | + + | Miscarriage - Primary Unspecified spontaneous without mention of | | complication | + + documented in this encounter"
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
--- OUTSIDE RECORDS SUMMARY | ~2019-08-11 | XMS | Encounter Summary ---
Demographics + + + | Address | [address] | | | [place] [address] | + + + | Home Phone | | + + + | Preferred Language | Unknown | + + + | Marital Status | Unknown | + + + | Jain Affiliation | Unknown | + + + | Race | Unknown | + + + | Ethnic Group | Unknown | + + + Author + + + | Author | [facility] | | | and [place] | + + + | Organization | [facility] | | | [...] [place] | | | | | [address] | | + + + + + Care Team Providers + +------+ + | Care Fabrication Supervisor Name | Role | Phone | + +------+ + | Cyndi Bell MD | PCP | | + +------+ + Reason for Visit + + + | Reason | Comments | + + + | Test | | + + + Encounter Details +--------+ + + + + | Date | Type | Department | Care Team | Description | +--------+ + + + + | 12/07/ | Telephone | [facility] | Cyndi Bell MD | Test | | 2019 | | MEDICINE [place] | [address] | | | | | [address] | [place] | | | | | [place] | [address] | | | | | [address] | | | | | | [phone] | | | +--------+ + + + [...] + | Diagnosis | + + | Encounter for supervision of normal in multigravida in first trimester - | | Primary | + + documented in this encounter"
--- OUTSIDE RECORDS SUMMARY | ~2019-08-11 | XMS | Encounter Summary ---
Demographics + + + | Address | [address] | | | [place] [address] | + + + | Home Phone | | + + + | Preferred Language | Unknown | + + + | Marital Status | Unknown | + + + | Holiness Affiliation | Unknown | + + + | Race | Unknown | + + + | Ethnic Group | Unknown | + + + Author + + + | Author | [facility] | | | and [place] | + + + | Organization | [facility] | | [...] [place] | | | | | [address] | | + + + + + Care Team Providers + +------+ + | Care Mechanical Facilities Technician Name | Role | Phone | + [...] + + | 06/08/ | Office | [facility] | Sigrid Jose, | Acute vaginitis | | 2018 | Visit | CARE [address] | [address] | (Primary Dx) | | | | [place] | [place] | | | | | [address] | [address] | | | | | [phone] | | | +--------+---------+ + + + [...] Don t try to treat yourself using hlzv-kew-sfs nter products without talking to your provider [...] joint pain, or sores. Date Last Reviewed: 05/18/[id number] [employer] [place] [address]. All righ ts reserved. This information is [...] POC Trace (A) Negative, 100 mg/dL Specific [place], UA, POC 1.015 1.001 - 1.030 Blood, [...] Negative Negative Internal QC Acceptable Acceptable Specific [place], POC 1.010, 1.015, 1.020, 1.025 Lot Number [id number] Expiration Date 07/27/2019 Vaginal Path DNA dir [...] Don t try to treat yourself using denb-ejx-uqu nter products without talking to your provider [...] joint pain, or sores. Date Last Reviewed: 05/18/[id number] [employer] [address] [place] [address]. All righ ts reserved. This information is not intended as a substitute for professional medical care. Always follow your healthcare professional's instructions. This note was dictated using Pusher voice recognition software. Occasional wrong- word or [...] + + | Performed at: 01 - [facility] [address], | REFERENCE LAB | | [place], [place] [id number] Yarn Dumper: Giacomo Mccord MD, Phone: | EMIR GUT[place]Z | | [phone] | | + + + + + + + + | Performing | Address | City/State/Zipcode | Phone Number | | Organization | | | | + + + + + | REFERENCE LAB | [address] | [place] [address] | [phone] | | [facility] | Drive [...] + + + | [facility] | [address] | [place] | [phone] | | [facility] | | [address] | | | [facility] | | [...] 1.010, 1.015, | [facility] | | | [place], | | 1.020, 1.025 | [facility] | | | POC | | | CORE | | | | | | LABORATORY | | + + + + + + | Lot Number | [id number] | | [facility] | | | | [...] | + + + + + | [address] | [address] [place] [address] [place] | [place] [address] | [phone] | | [facility] | | | [...] 1.001 - 1.030 | | | | [place], | | | | | | UA, [...]
--- OUTSIDE RECORDS SUMMARY | ~2019-08-11 | XMS | Encounter Summary ---
Demographics + + + | Address | [address] | | | [place] [address] | + + + | Home Phone | | + + + | Preferred Language | Unknown | + + + | Marital Status | Unknown | + + + | Anabaptist Affiliation | Unknown | + + + | Race | Unknown | + + + | Ethnic Group | Unknown | + + + Author + + + | Author | [facility] | | | and [place] | + + + | Organization | [facility] | | [...] [place] | | | | | [address] | | + + + + + Care Team Providers + +------+ + | Care Front Services Agent Name | Role | Phone | + [...] + | 01/25/ | Telephone | [facility] | Cyndi Bell MD | LABS | | 2019 | | MEDICINE [place] | [address] | | | | | [address] | [place] | | | | | [place] | [address] | | | | | [address] | | | | | | [phone] | | | +--------+ + + + [...]
--- OUTSIDE RECORDS SUMMARY | ~2019-08-11 | XMS | Encounter Summary ---
Demographics + + + | Address | [address] | | | [place] [address] | + + + | Home Phone | | + + + | Preferred Language | Unknown | + + + | Marital Status | Unknown | + + + | Restoration Affiliation | Unknown | + + + | Race | Unknown | + + + | Ethnic Group | Unknown | + + + Author + + + | Author | [facility] | | | and [place] | + + + | Organization | [facility] | | | [...] [place] | | | | | [address] | | + + + + + Care Team Providers + +------+ + | Care Head Athletic Trainer Name | Role | Phone | + +------+ + | Cnydi Bell MD | PCP | | + +------+ + Encounter Details +--------+ + + + + | Date | Type | Department | Care Team | Description | +--------+ + + + + | 10/15/ | Abstract | [facility] | Cyndi Bell MD | | | 2018 | | MEDICINE [place] | [address] | | | | | [address] | [place] | | | | | [place] | [address] | | | | | [address] | | | | | | [phone] | | | +--------+ + + + [...]
--- OUTSIDE RECORDS SUMMARY | ~2019-08-11 | XMS | Clinical Summary ---
Demographics + + + | Address | [address] | | | [place] [address] | + + + | Home Phone [...] + + + | Author | [facility] | | | and [place] | + + + | Organization | [facility] | | | and [...] [place] | | | | | [address] | | + + + + + Care Team Providers + +------+ + | Care Automotive Technician Instructor Name | Role | Phone | + [...] A | | referral was placed for [facility] chiropractor. | + + + + + [...] | + + + + | INFLUENZA, [id number], | 06/14/2009 | | | INACTIVATED | | | + + + + | INFLUENZA, [id number], | 06/14/2009 | | | UNSPECIFIED | [...] + | Breast cancer | Mother | [place] | | + [...] [address] | [place] | [phone] | | [facility] | | [address] | | | - LABORATORY | | [...] | [employer] | MOD[employer] | [id number] | 06/03/ | [phone] | | Medica | | MEDICAID HMO [...] | 1985 | [phone] | [place] [address] | | | [place] | | | 1 (Home) | | + +--------+ +--------+ + + Advance Directives + + + + + | Type | Date Recorded | Patient | Explanation | | | | Or Nurse Manager | | + + + + + | Power of | | | | | Union Organizer | | | | + + + + + | Advance | | | | | Directive | | | | + + + + +
--- OUTSIDE RECORDS SUMMARY | ~2019-08-11 | XMS | Encounter Summary ---
Demographics + + + | Address | [address] | | | [place] [address] | + + + | Home Phone | | + + + | Preferred Language | Unknown | + + + | Marital Status | Unknown | + + + | Hindu Affiliation | Unknown | + + + | Race | Unknown | + + + | Ethnic Group | Unknown | + + + Author + + + | Author | [facility] | | | and [place] | + + + | Organization | [facility] | | | and [...] [place] | | | | | [address] | | + + + + + Care Team Providers + +------+ + | Care Zone Maintenance Technician Name | Role | Phone | [...] Miscarriage | | 2019 | | MEDICINE [place] | [address] | | | | | [address] | [place], [place] | | | | | [place], [place] | [address] | | | | | [address] | | | | | | [phone] | | | +--------+ + + + [...] [place] | | | [facility] | | [address] | | | - BLOOD BANK | | | | + + + + + documented in this encounter Visit Diagnoses + + | Diagnosis | + + | Miscarriage - Primary Unspecified spontaneous without mention of | | complication | + + documented in this encounter"
--- OUTSIDE RECORDS SUMMARY | ~2019-08-11 | XMS | Encounter Summary ---
Demographics + + + | Address | [address] | | | [place] [address] | + + + | Home Phone | | + + + | Preferred Language | Unknown | + + + | Marital Status | Unknown | + + + | Catholic Affiliation | Unknown | + + + | Race | Unknown | + + + | Ethnic Group | Unknown | + + + Author + + + | Author | [facility] | | | and [place] | + + + | Organization | [facility] | | [...] [place] | | | | | [address] | | + + + + + Care Team Providers + +------+ + | Care Civil Rights Attorney Name | Role | Phone | + [...] + + | 07/14/ | Telephone | [facility] | Cyndi Bell MD | Urinary Tract | | 2019 | | MEDICINE [place] | [address] | Infection | | | | [address] | [place] | | | | | [place] | [address] | | | | | [address] | | | | | | [phone] | | | +--------+ + + + [...]
--- OUTSIDE RECORDS SUMMARY | ~2019-08-11 | XMS | Encounter Summary ---
Demographics + + + | Address | [address] | | | [place] [address] | + + + | Home Phone | | + + + | Preferred Language | Unknown | + + + | Marital Status | Single | + + + | Latter Day Affiliation | Unknown | + + + | Race | White | + + + | Ethnic Group | Not or | + + + Author + + + | Author | [facility] | + + + | Organization | [facility] | + + + | Address | Unknown | + + + | Phone | Unavailable | + + + Support + + +---------+ + | Name | Relationship | Address | Phone | + + +---------+ + | Bev Meredith | ECON | Unknown | | + + +---------+ + Care Team Providers + +------+ + | Care Youth Director Name | Role | Phone | + [...] as of this encounter Progress Notes Interface, Director Building In - 02/03/2006 1:06 AM PDTClinic Date: 06/09/2003 Clinic: [facility] Subjective: Daniele comes to the clinic [...] The patient has recently moved here from [place]. She currently lives with her boyfriend and [...] Juan Yost M.D. Salvatore Odell M.D. / [id number] / [id number] / [id number] / Tdocumented in this encounter Plan of Treatment Not on filedocumented as of this encounter Visit Diagnoses Not on filedocumented in this encounter"
--- OUTSIDE RECORDS SUMMARY | ~2019-08-11 | XMS | Encounter Summary ---
Demographics + + + | Address | [address] | | | [place] [address] | + + + | Home Phone | | + + + | Preferred Language | Unknown | + + + | Marital Status | Unknown | + + + | Mandaeism Affiliation | Unknown | + + + | Race | Unknown | + + + | Ethnic Group | Unknown | + + + Author + + + | Author | [facility] | | | and [place] | + + + | Organization | [facility] | | | and [...] [place] | | | | | [address] | | + + + + + Care Team Providers + +------+ + | Care Fire Protection Fabricator Name | Role | Phone | + +------+ + | Cyndi Bell MD | PCP | | + +------+ + Reason for Visit + + + | Reason | Comments | + + + | Thyroid Problem | | + + + Encounter Details +--------+---------+ + + + | Date | Type | Department | Care Team | Description | +--------+---------+ + + + | 06/24/ | Office | [facility] | Melody Bruner, | Cystic acne (Primary | | 2019 | Visit | [facility] [place] | [address] | Dx); Eczema, | | | | [address] | [place] | unspecified type; | | | | [place] | [address] | Need for vaccination | | | | [address] | | | | | | [phone] | | | +--------+---------+ + + + [...] + + + + | Height | - | - | | + + + + + | Body Mass Index | 23.34 | 12/18/2018 5:35 PM | | | | | PDT | | + + + + + documented in this encounter Patient Instructions Patient Instructions Melody Bruner MD - 06/24/2019 4:00 PM PSTStart 25 mg spironolacto ne once daily for acne, we'll need to check blood test for potassium before refilling or inc reasing the dose. I'll send order to [facility], no need to be fasting Moisturize with lotion once daily, use hydrocortisone 2.5% cream twice daily as needed for eczema patches. If not working well enough after 2 weeks, let me know and we'll need to olvera ge to different cream documented in this encounter Plan of Treatment + +------+--------+ + + | Name | Type | Priori | Associated Diagnoses | Order Schedule | | | | ty | | | + +------+--------+ + + | Basic Metabolic | Lab | Routin | Cystic acne | Expected: | | Panel | | e | | 07/24/2019, Expires: | | | | | | 06/23/2020 | + +------+--------+ + + documented as of this encounter Visit Diagnoses + + | Diagnosis | + + | Cystic acne - Primary Other acne | + + | Eczema, unspecified type | + + | Need for vaccination Need for prophylactic vaccination and inoculation against | | unspecified single disease | + + documented in this encounter"
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
--- OUTSIDE RECORDS SUMMARY | ~2019-08-11 | XMS | Encounter Summary ---
Demographics + + + | Address | [address] | | | [place] [address] | + + + | Home Phone | | + + + | Preferred Language | Unknown | + + + | Marital Status | Unknown | + + + | Baptism Affiliation | Unknown | + + + | Race | Unknown | + + + | Ethnic Group | Unknown | + + + Author + + + | Author | [facility] | | | and [place] | + + + | Organization | [facility] | | | [...] [place] | | | | | [address] | | + + + + + Care Team Providers + +------+ + | Care Machine Filler Servicer Name | Role | Phone | + [...] + | 12/07/ | Telephone | [facility] | Cyndi Bell MD | Test | | 2019 | | [facility] [place] | [address] | | | | | [address] | [place] | | | | | [place] | [address] | | | | | [address] | | | | | | [phone] | | | +--------+ + + + [...]
--- OUTSIDE RECORDS SUMMARY | ~2019-08-11 | XMS | Encounter Summary ---
Demographics + + + | Address | [address] | | | [place] [address] | + + + | Home Phone | | + + + | Preferred Language | Unknown | + + + | Marital Status | Unknown | + + + | Sabianism Affiliation | Unknown | + + + [...] [place] | | | | | [address] | | + + + + + Care Team Providers + +------+ + | Care Water Rights Specialist Name | Role | Phone | + +------+ + | No, Physician | PCP | Unavailable | + +------+ + Reason for Visit + + + | Reason | Comments | + + + | Sinus Problem | Room 5: "sinus infection symptoms, heachache, scratchy throat, | | | runny nose" x 3days | + + + Encounter Details +--------+---------+ + + + | Date | Type | Department | Care Team | Description | +--------+---------+ + + + | 07/01/ | Office | [facility] | Sigrid Jose, | Viral URI (Primary | | 2017 | Visit | CARE [address] | [address] | Dx) | | | | [place] | [place] [facility] [place] | | | | | [address] | [address] | | | | | [phone] | | | +--------+---------+ + + + Social History + +-------+ +--------+------+ | Tobacco Use | Types | Packs/Day | Years | Date | | | | | Used | | + +-------+ +--------+------+ | Never Smoker | | | | | + +-------+ +--------+------+ + +---+---+---+ | Smokeless Tobacco: | | | | | Never Used | | | | + +---+---+---+ + + + | Sex Assigned at [...] + + + | Blood Pressure | 128/69 | 07/01/2017 4:21 PM | | | | | PST | | + + + + + | Pulse | 80 | 07/01/2017 4:21 PM | | | | | PST | | + + + + + | Temperature | 36.9 C (98.4 F) | 07/01/2017 4:21 PM | | | | | PST | | + + + + + | Respiratory Rate | 16 | 07/01/2017 4:21 PM | | | | | PST | | + + + + + | Oxygen Saturation | 98% | 07/01/2017 4:21 PM | | | | | PST | | + + + + + | Inhaled Oxygen | - | - | | | Concentration | | | | + + + + + | Weight | 71.8 kg (158 lb 4.6 | 07/01/2017 4:21 PM | | | | oz) | PST | | + + + + + | Height | 170.2 cm (5' 7") | 07/01/2017 4:21 PM | | | | | PST | | + + + + + | Body Mass Index | 24.79 | 07/01/2017 4:21 PM | | | | | PST | | + + + + + documented in this encounter Patient Instructions Patient Instructions Sigrid Jose MD - 07/01/2017 3:30 PM PST Viral Upper Respiratory Illness (Adult) You have a viral upper respiratory illness (URI), which is another term for the common cold . This illness is contagious during the first few days. It is spread through the air by coug awa and sneezing. It may also be spread by direct contact (touching the sick person and the n touching your own eyes, nose, or mouth). Frequent handwashing will decrease risk of spread . Most viral illnesses go away within 7 to 10 days with rest and simple home remedies. Somet imes the illness may last for several weeks. Antibiotics will not kill a virus, and they are generally not prescribed for this condition. Home care If symptoms are severe, rest at home for the first 2 to 3 days. When you resume activity , don't let yourself get too tired. Avoid being exposed to cigarette smoke (yours or others ). You may use acetaminophen or ibuprofen to control pain and fever, unless another medicin e was prescribed. (Note: If you have chronic liver or kidney disease, have ever had a stomac h ulcer or gastrointestinal bleeding, or are taking blood-thinning medicines, talk with your healthcare provider before using these medicines.) Aspirin should never be given to anyone under 18 years of age who is ill with a viral infection or fever. It may cause severe liver or brain damage. Your appetite may be poor, so a light diet is fine. Avoid dehydration by drinking 6 to 8 glasses of fluids per day (water, soft drinks, juices, tea, or soup). Extra fluids will hel p loosen secretions in the nose and lungs. Rfxa-hxa-kgewpsj cold medicines will not shorten the length of time you re sick, but t hey may be helpful for the following symptoms: cough, sore throat, and nasal and sinus conge stion. (Note: Do not use decongestants if you have high blood pressure.) Follow-up care Follow up with your healthcare provider, or as advised. When to seek medical advice Call your healthcare provider right away if any of these occur: Cough with lots of colored sputum (mucus) Severe headache; face, neck, or ear pain Difficultyswallowingdue to throat pain Fever of 100.4F (38C) Call 911, or get immediate medical care Call emergency services right away if any of these occur: Chest pain, shortness of breath, wheezing, or difficulty breathing Coughing up blood Inability to swallow due to throat pain Date Last Reviewed: 04/30/201519996896-6884 [facility]. [address] [place] [address], [place] [address]. All righ ts reserved. This information is not intended as a substitute for professional medical care. Always follow your healthcare professional's instructions. documented in this encounter Progress Notes Sigrid Jose MD - 07/01/2017 3:30 PM PSTFormatting of this note might be different fro m the original. Chief Complaint: Sinus Problem (Room 5: "sinus infection symptoms, heachache, scratchy thro at, runny nose" x 3days) Daniele is a 31 y.o. female who comes in complaining of upper respiratory symptoms for 3 day s, head pounding constant sneezing yellow snot, throat scratchy, coughing. No fever. Takin g over-counter tylenol daytime sinus congestion. Never had sinus infection before. No dayton rtness of breath. Lungs feel clear. Daniele has no other complaints. Patient's medications, allergies, past medical, surgical, social and family histories were reviewed and updated as appropriate. ROS: See HPI no tooth pain, no pain with leaning forward Objective: BP 128/69 | Pulse 80 | Temp 36.9 C (98.4 F) (Temporal) | Resp 16 | Ht 1.702 m (5' 7 ") | Wt 71.8 kg (158 lb 4.6 oz) | LMP 06/27/2017 | SpO2 98% | BMI 24.79 kg/m General Appearance: Alert, cooperative, no distress, appears stated age Head: Normocephalic, without obvious abnormality, atraumatic Eyes: PERRL, conjunctiva/corneas clear Ears: Normal TM's and external ear canals, gross normal hearing Nose: congested Throat: clear Neck: Supple, symmetrical, with no anterior cervical adenopathy Lungs: ctab, respirations unlabored Skin: Skin color, texture, turgor normal, no rashes or lesions Face nontender Assessment and Plans: URI, probably viral. Will treat with saline sinus irrigation, rest, tylenol or ibuprofen as needed, increased fl uids, yolo-jga-glmcbbq cough and cold medications as needed. Return to clinic if symptoms persist, change or worsen over the following week despite that . This note was dictated using [employer] voice recognition software. Occasional wrong- word or s ound-alike substitutions may have occurred due to the inherent limitations of voice recognit ion software. Please read the chart carefully and recognize, using context, where these subs titutions have occurred. documented in this en counter Plan of Treatment Not on filedocumented as of this encounter Visit Diagnoses + + | Diagnosis | + + | Viral URI - Primary Acute upper respiratory infections of unspecified site | + + documented in this encounter
--- OUTSIDE RECORDS SUMMARY | ~2019-08-11 | XMS | Encounter Summary ---
Demographics + + + | Address | [address] | | | [place] [address] | + + + | Home Phone | | + + + | Preferred Language | Unknown | + + + | Marital Status | Unknown | + + + | Spiritism Affiliation | Unknown | + + + | Race | Unknown | + + + | Ethnic Group | Unknown | + + + Author + + + | Author | [facility] | | | and [place] | + + + | Organization | [facility] | [...] [place] | | | | | [address] | | + + + + + Care Team Providers + +------+ + | Care Municipal Services Manager Name | Role | Phone | [...] + + | 07/01/ | Office | [facility] | Sigrid Jose, | Viral URI (Primary | | 2017 | Visit | CARE [address] | [address] | Dx) | | | | [place] | [place] [facility] [place] | | | | | [address] | [address] | | | | | [phone] | | | +--------+---------+ + + + [...] loosen secretions in the nose and lungs. Oghd-tyy-kffxowx cold medicines will not shorten the length [...] due to throat pain Date Last Reviewed: 04/30/201519992187-3598 [employer]. [address] [place] [address], [place] [address]. All righ ts reserved. This information is [...] or ibuprofen as needed, increased fl uids, idzx-pmn-fikegjf cough and cold medications as needed. Return to clinic if symptoms persist, change or worsen over the following week despite that . This note was dictated using A[employer] voice recognition software. Occasional wrong- word or [...]
--- OUTSIDE RECORDS SUMMARY | ~2019-08-11 | XMS | Encounter Summary ---
Demographics + + + | Address | [address] | | | [place] [address] | + + + | Home Phone | | + + + | Preferred Language | Unknown | + + + | Marital Status | Unknown | + + + | Restorationism Affiliation | Unknown | + + + | Race | Unknown | + + + | Ethnic Group | Unknown | + + + Author + + + | Author | [facility] | | | and [place] | + + + | Organization | [facility] | | | [...] [place] | | | | | [address] | | + + + + + Care Team Providers + +------+ + | Care Police Officer Booking Name | Role | Phone | + [...] + + | 09/17/ | Office | [facility] | [facility], | Pelvic pain (Primary | | 2018 | Visit | CARE [address] | Luis Matute MD | Dx) | | | | [place], [place] | [address] | | | | | [address] | [place], [place] | | | | | [phone] | [address] | | | | | | | [...] your pain. These can in clude: Taking afnq-bss-kwerujj pain medicine. Stronger pain medicine may also [...] (especially bleeding after menopause) Date Last Reviewed: 01/26/201519990670-[address] [employer]. [address] [place] [address], [place] [address]. All [facility] ts reserved. This information is not intended [...] concern occur. This note was dictated using ooma voice recognition software. Occasional wrong- word or [...] | 1.010, 1.015, | | | | [employer], | | 1.020, 1.025 | | | | POC | | | | | + + + + + + | Lot Number | [id number] | | | | + + + [...] 1.001 - 1.030 | | | | [place], | | | | | | UA, [...]
--- OUTSIDE RECORDS SUMMARY | ~2019-08-11 | XMS | Encounter Summary ---
Demographics + + + | Address | [address] | | | [place] [address] | + + + | Home Phone | | + + + | Preferred Language | Unknown | + + + | Marital Status | Unknown | + + + | Oriental Orthodox Affiliation | Unknown | + + + | Race | Unknown | + + + | Ethnic Group | Unknown | + + + Author + + + | Author | [facility] | | | and [place] | + + + | Organization | [facility] | | | and [...] [place] | | | | | [address] | | + + + + + Care Team Providers + +------+ + | Care River Guide Name | Role | Phone | + +------+ + | Cyndi Bell MD | PCP | | + +------+ + Encounter Details +--------+ + + + + | Date | Type | Department | Care Team | Description | +--------+ + + + + | 05/21/ | Lab | [facility] | Belgica Zamudio | Encounter for | | 2019 | Requisition | [facility] | Nelia Jang DO | test, | | | | [address] [place] | [address] | result positive | | | | [place], [place] | [place], [place] | | | | | [address] | [address] | | | | | [phone] | | | +--------+ + + + [...] + + documented in this encounter Results HCG, Serum, Quant (05/21/2019 10:36 AM PDT) [...] + + | [facility] | [address] | [place] | [phone] | | [facility] | | [address] | | | - LABORATORY | | | | + + + + + documented in this encounter Visit Diagnoses + + | Diagnosis | + + | Encounter for test, result positive examination or test, positive | | result | + + documented in this encounter"
--- OUTSIDE RECORDS SUMMARY | ~2019-08-11 | XMS | Encounter Summary ---
Demographics + + + | Address | [address] | | | [place] [address] | + + + | Home Phone | | + + + | Preferred Language | Unknown | + + + | Marital Status | Unknown | + + + | Episcopalian Affiliation | Unknown | + + + | Race | Unknown | + + + | Ethnic Group | Unknown | + + + Author + + + | Author | [facility] | | | and [place] | + + + | Organization | [facility] | | | and [place] | + [...] [place] | | | | | [address] | | + + + + + Care Team Providers + +------+ + | Care Nursing Services Manager Name | Role | Phone [...] + | 07/21/ | Refill | [facility] | Cyndi Bell MD | Medication Refill | | 2019 | | [facility] [place] | [address] | | | | | [address] | [place] | | | | | [place] | [address] | | | | | [address] | | | | | | [phone] | | | +--------+--------+ + + + [...]
--- OUTSIDE RECORDS SUMMARY | ~2019-08-11 | XMS | Encounter Summary ---
Demographics + + + | Address | [address] | | | [place] [address] | + + + | Home Phone [...] Author + + + | Author | [facility] | | | and [place] | + + + | Organization | [facility] | | | [...] [place] | | | | | [address] | | + + + + + Care Team Providers + +------+ + | Care Journeyman Tool And Die Maker Name | Role | Phone | + +------+ + | yCndi Bell MD | PCP | | + +------+ + Reason for Visit +---------+ + | Reason | Comments | +---------+ + | Results | | +---------+ + Encounter Details +--------+ + + + + | Date | Type | Department | Care Team | Description | +--------+ + + + + | 12/22/ | Telephone | [facility] | Melody Bruner, | Results | | 2019 | | [facility] [place] | MD [address] | | | | | [address] | [place], [place] | | | | | [place], [place] | [address] | | | | | [address] | | | | | | [phone] | | | +--------+ + + + [...]
--- OUTSIDE RECORDS SUMMARY | ~2019-08-11 | XMS | Encounter Summary ---
Demographics + + + | Address | [address] | | | [place] [address] | + + + | Home Phone | | + + + | Preferred Language | Unknown | + + + | Marital Status | Unknown | + + + | Hoahaoism Affiliation | Unknown | + + + | Race | Unknown | + + + | Ethnic Group | Unknown | + + + Author + + + | Author | [facility] | | | and [place] | + + + | Organization | [facility] | | [...] [place] | | | | | [address] | | + + + + + Care Team Providers + +------+ + | Care Rug Dyer Helper Name | Role | Phone | + [...] + + | 06/24/ | Office | [facility] | Melody Bruner, | Cystic acne (Primary | | 2019 | Visit | [facility] [place] | [address] | Dx); Eczema, | | | | [address] | [place] | unspecified type; | | | | [place] | [address] | Need for vaccination | | | | [address] | | | | | | [phone] | | | +--------+---------+ + + + [...]
--- OUTSIDE RECORDS SUMMARY | ~2019-08-11 | XMS | Encounter Summary ---
Demographics + + + | Address | [address] | | | [place] [address] | + + + | Home Phone | | + + + | Preferred Language | Unknown | + + + | Marital Status | Unknown | + + + | Sikhism Affiliation | Unknown | + + + [...] [place] | | | | | [address] | | + + + + + Care Team Providers + +------+ + | Care Project Safety Manager Name | Role | Phone | [...] | | | | | sciatica | [address] | [address] | | | | | | Phone: | Phone: | | | | | | [phone] | [phone] | | | | | | Fax: | Fax: | | | | | | [phone] | [phone] | +--------+ + + + + + [...] + | 10/13/ | Office | [facility] | Cyndi Bell MD | Chronic midline low | | 2018 | Visit | [facility] [place] | [address] | back pain without | | | | [address] | [place] | sciatica (Primary | | | | [place] | [address] | Dx); Acne vulgaris; | | | | [address] | | Musculoskeletal neck | | | | [phone] | | pain; Less than 8 | [...] bereduced in this way. Date Last Reviewed: 12/16/201619992437-[address] [employer] [place] [address], [place] [id number]. All righ ts reserved. This information is not intended as a substitute for professional medical care. Always follow your healthcare professional's instructions. documented in this encounter Progress Notes Cyndi Bell MD - 10/13/2017 11:15 AM PST Subjective: Patient ID: Daniele Connor is a 32 y.o. female. Chief Complaint Patient presents with [facility] HPI Daniele is a 32 year old female who presents to the clinic as a new patient to me to [facility] today. Dr. Lizz CORDOVA LMP: 08/21/17 EDC: 05/28/18 GA: 7w 4 d GP 4303 Moved here from [place] recently. She woudl like a referral to chiropractic for lower back pain and migraines, she does recei ve those services regularly and was doing so in [place]. 1) C/O Had back sprains and strains [...] chiropractic treatments. A referral was placed for [facility] chiropractor. Orders: - Ambulatory referral to Chiropractic [...]
--- OUTSIDE RECORDS SUMMARY | ~2019-08-11 | XMS | Encounter Summary ---
Demographics + + + | Address | [address] | | | [place] [address] | + + + | Home Phone | | + + + | Preferred Language | Unknown | + + + | Marital Status | Single | + + + | Quaker Affiliation | Unknown | + + + [...] Team Providers + +------+ + | Care In Flight Crew Member Name | Role | Phone | + +------+ + PCP | Unavailable | + +------+ + Encounter Details +--------+ + + + + | Date | Type | Department | Care Team | Description | +--------+ + + + + | 06/09/ | Results | | [facility] | | | 2002 | Only | | [address] | | | | | | [address] | | | | | | [place] [address] | | +--------+ + + + + [...] | + +--------+ + + + | [facility] (PAP) | Routin | 06/09/2003 | | Results for this | | | e | | | procedure are in the | | | | | | results section. | + +--------+ + + + documented in this encounter Results [facility] CYTOLOGY (PAP) (06/09/2003) + + + + + + | Component | Value | Ref Range | Performed | Pathologist | | | | | At | Signature | + + + + + + | [facility] | SOURCE OF SPECIMEN: | | [facility] | | | CYTOLOGY | CervicalReason for | | DEPARTMENT | | | | Examination: Screening | | OF | | | | Pap (Low Risk)CLINICAL | | PATHOLOGY | | | | HISTORY: LMP: | | | | | | [id number] Diagnosis | | | | | | and/or Therapy: | | | | | | Within Normal Limits | | | | | | Interpretation:Negative | | | | | | for Intraepithelial | | | | | | Lesion or Malignancy. | | | | | | Adequacy:Satisfactory | | | | | | for evaluation. | | | | | | Transformation zone | | | | | | present.Comment: SOURCE | | | | | | OF SPECIMEN: Cervical | | | | | | and/or Vaginal | | | | | | Monolayer, Screening | | | | + + + + + + + + | Specimen | + + | | + + + + + + + | Performing | Address | City/State/Zipcode | Phone Number | | Organization | | | | + + + + + | [facility] | [address] | [place] [address] | | | PATHOLOGY | MAHIN FOWLER | | | + + + + + | [facility] | [address] | [place] [address] | | | PATHOLOGY | MA[place]ER | | | + + + + + documented in this encounter Visit Diagnoses Not on filedocumented in this encounter"
--- OUTSIDE RECORDS SUMMARY | ~2019-08-11 | XMS | Encounter Summary ---
Demographics + + + | Address | [address] | | | [place] [address] | + + + | Home Phone | | + + + | Preferred Language | Unknown | + + + | Marital Status | Unknown | + + + | Hindu Affiliation | Unknown | + + + | Race | Unknown | + + + | Ethnic Group | Unknown | + + + Author + + + | Author | [facility] | | | and [place] | + + + | Organization | [facility] | [...] [place] | | | | | [address] | | + + + + + Care Team Providers + +------+ + | Care Nail Technician Name | Role | Phone | + +------+ + | Cyndi Bell MD | PCP | | + +------+ + Reason for Visit + + + | Reason | Comments | + + + | Abdominal Cramping | | + + + Encounter Details +--------+ + + + + | Date | Type | Department | Care Team | Description | +--------+ + + + + | 12/18/ | Emergency | [facility] | [facility] | Abnormal | | 2019 | | [facility] | Giovanni, DO [address] | US (Primary Dx); | | | | CENTER [address] | [address] [place] | Threatened | | | | [place], [place] | [place] [address] | | | | | [address] | [phone] | | | | | [phone] | | | +--------+ + + + [...] + + + | Blood Pressure | 132/81 | 12/18/2018 5:35 PM | | | | | PDT | | + + + + + | Pulse | 88 | 12/18/2018 5:35 PM | | | | | PDT | | + + + + + | Temperature | 36.3 C (97.3 F) | 12/18/2018 5:35 PM | | | | | PDT | | + + + + + | Respiratory Rate | 16 | 12/18/2018 5:35 PM | | | | | PDT | | + + + + + | Oxygen Saturation | 99% | 12/18/2018 5:35 PM | | | | | PDT | | + + + + + | Inhaled Oxygen | - | - | | | Concentration | | | | + + + + + | Weight | 70.3 kg (155 lb) | 12/18/2018 5:35 PM | | | | | PDT | | + + + + + | Height | 170.2 cm (5' 7") | 12/18/2018 5:35 PM | | | | | PDT | | + + + + + | Body Mass Index | 24.28 | 12/18/2018 5:35 PM | | | | | PDT | | + + + + + documented in this encounter Discharge Instructions Loyd Vang DO - 12/18/2018Please follow-up for repeat hCG trendin g and possible ultrasound if needed. AttachmentsThe following attachments cannot be sent through Care Everywhere.Possible Miscar riage (Threatened ) (Ugandan)documented in this encounter Medications at Time of Discharge + + + +---------+ + + | Medication | Sig | Dispensed | Refills | Start | End Date | | | | | | Date | | + + + +---------+ + + | vitamin | Take 1 tablet by | | 0 | 12/08/19 | | | w/ferrous | mouth Daily. | | | 19 | 9 | | fumarate-folic acid | | | | | | | ( PLUS) 27-1 | | | | | | | mg tablet | | | | | | + + + +---------+ + + documented as of this encounter Plan of Treatment Not on filedocumented as of this encounter Procedures + +--------+ + + + | Procedure Name | Priori | Date/Time | Associated Diagnosis | Comments | | | ty | | | | + +--------+ + + + | US OB < 14 WEEKS W | STAT | 12/18/2018 | | Results for this | | TRANSVAGINAL | | 8:10 PM | | procedure are in the | | | | PDT | | results section. | + +--------+ + + + | ABO RH | STAT | 12/18/2018 | | Results for this | | | | 6:29 PM | | procedure are in the | | | | PDT | | results section. | + +--------+ + + + | CBC WITH | STAT | 12/18/2018 | | Results for this | | DIFFERENTIAL | | 6:29 PM | | procedure are in the | | | | PDT | | results section. | + +--------+ + + + | HCG, SERUM, QUANT | STAT | 12/18/2018 | | Results for this | | | | 6:29 PM | | procedure are in the | | | | PDT | | results section. | + +--------+ + + + | COMPREHENSIVE | STAT | 12/18/2018 | | Results for this | | METABOLIC PANEL | | 6:29 PM | | procedure are in the | | | | PDT | | results section. | + +--------+ + + + | POCT URINALYSIS, | STAT | 12/18/2018 | | Results for this | | AUTO WITH CONF | | 5:52 PM | | procedure are in the | | | | PDT | | results section. | + +--------+ + + + | POCT TEST, | STAT | 12/18/2018 | | Results for this | | URINE, QUAL | | 5:46 PM | | procedure are in the | | | | PDT | | results section. | + +--------+ + + + documented in this encounter Results US OB < 14 Weeks W Transvaginal (12/18/2018 8:10 PM PDT) + + | Specimen | + + | | + + + + + | Narrative | Performed At | + + + | EXAM:US OB < 14 WEEKS W TRANSVAGINAL CLINICAL HISTORY: ABDOMINAL | [facility] | | CRAMPING COMPARISON: None. FINDINGS: Transabdominal and | | | transvaginal imaging of the pelvis. Uterus: The uterus is | | | anteflexed. There is an irregular hypoechoic collection in the | | | endometrial cavity. It measures about 1 cm. There is no identified | | | yolk sac. There is no identified pole. The uterus measures | | | 10.9 x 7.3 x 6.6 cm. Ovaries and adnexa: There is a corpus | | | luteum cyst in the left ovary. It measures 1.5 cm. The right | | | ovary is unremarkable. Right ovary measures 2.9 x 2.6 x 1.5 cm and | | | the left 2.7 x 2.5 x 2 cm. There are no adnexal masses. There is | | | no significant free fluid. IMPRESSION - Irregular, hypoechoic | | | collection in the endometrium. This could be the remnant of a | | | gestational sac or a pseudogestational sac. No visible ectopic | | | or other adnexal mass. Ectopic is not | | | excluded. Recommendation: The patient warrants close clinical | | | follow-up and repeat imaging as necessary. The preliminary | | | findings were conveyed to the ordering provider, by the card feeder, | | | immediately following the exam. Dictated and Signed by: Lazaro Chong | | MD Maddi Electronically signed: 12/18/2018 8:38 PM | | + + + + + | Procedure Note | + + | Lauri, Rad Results In - 12/18/2018 8:42 PM PDT EXAM:US OB < 14 WEEKS W TRANSVAGINAL | | | | CLINICAL HISTORY: ABDOMINAL CRAMPING | | | | COMPARISON: None. | | | | FINDINGS: Transabdominal and transvaginal imaging of the pelvis. | | | | Uterus: The uterus is anteflexed. There is an irregular hypoechoic collection | | in the endometrial cavity. It measures about 1 cm. There is no identified yolk | | sac. There is no identified pole. The uterus measures 10.9 x 7.3 x 6.6 | | cm. | | | | Ovaries and adnexa: There is a corpus luteum cyst in the left ovary. It | | measures 1.5 cm. The right ovary is unremarkable. Right ovary measures 2.9 x | | 2.6 x 1.5 cm and the left 2.7 x 2.5 x 2 cm. There are no adnexal masses. There | | is no significant free fluid. | | | | IMPRESSION - | | | | Irregular, hypoechoic collection in the endometrium. This could be the remnant | | of a gestational sac or a pseudogestational sac. | | | | No visible ectopic or other adnexal mass. | | | | Ectopic is not excluded. | | | | Recommendation: The patient warrants close clinical follow-up and repeat imaging | | as necessary. | | | | The preliminary findings were conveyed to the ordering provider, by the | | card feeder, immediately following the exam. | | | | Dictated and Signed by: Lazaro Linda MD | | Electronically signed: 12/18/2018 8:38 PM | + + + +---------+ + + | Performing | Address | City/State[facility] | Phone Number | | Organization | | | | + +---------+ + + | [facility] | | | | + +---------+ + + HCG, Serum, Quant (12/18/2018 6:29 PM PDT) + + + + + + | Component | Value | Ref Range | Performed | Pathologist | | | | | At | Signature | + + + + + + | hCG Quant, | 2,087 (H)Comment: | 2 - 4 mIU/mL | [facility] | | | Serum | REFERENCE RANGE: | | [facility] | | | | | | MEDICAL | | | | B-hCG | | CENTER - | | | | LEVELGestational Age | | LABORATORY | | | | Expected hCG | | | | | | Values | | [...] | + + + + + | [facility] | [address] | [place] | [phone] | | [facility] | | [address] | | | - LABORATORY | | | | + + + + + ABO Rh (12/18/2018 6:29 PM PDT) + + + + + [...] | + + + + + | [facility] | [address] | [place] | | | [facility] | | [address] | | | - BLOOD BANK | | | | + + + + + Comprehensive Metabolic Panel (12/18/2018 6:29 PM PDT) + + + + + + | Component | Value | Ref Range | Performed | Pathologist | | | | | At | Signature | + + + + + + | Na | 138 | 136 - 145 | [facility] | | | | | mmol/L | [facility] | | | | | | MEDICAL | | | | | | CENTER - | | | | | | LABORATORY | | + + + + + + | K | 4.0 | 3.4 - 5.1 | [facility] | | | | | mmol/L | [facility] | | | | | | MEDICAL | | | | | | CENTER - | | | | | | LABORATORY | | + + + + + + | Cl | 105 | 98 - 107 mmol/L | [facility] | | | | | | [facility] | | | | | | MEDICAL | | | | | | CENTER - | | | | | | LABORATORY | | + + + + + + | CO2 | 29 | 20 - 31 mmol/L | [facility] | | | | | | [facility] | | | | | | MEDICAL | | | | | | CENTER - | | | | | | LABORATORY | | + + + + + + | Anion Gap | 4 | 3 - 16 mmol/L | [facility] | | | | | | [facility] | | | | | | MEDICAL | | | | | | CENTER - | | | | | | LABORATORY | | + + + + + + | Glucose | 88 | 60 - 106 mg/dL | [facility] | | | | | | [facility] | | | | | | MEDICAL | | | | | | CENTER - | | | | | | LABORATORY | | + + + + + + | BUN | 6 (L) | 9 - 23 mg/dL | [facility] | | | | | | [facility] | | | | | | MEDICAL | | | | | | CENTER - | | | | | | LABORATORY | | + + + + + + | Creatinine | 0.57 | 0.55 - 1.02 | [facility] | | | | | mg/dL | [facility] | | | | | | MEDICAL | | | | | | CENTER - | | | | | | LABORATORY | | + + + + + + | eGFR if not | >60Comment: GLOMERULAR | >=60 | [facility] | | | | FILTRATION | mL/min/1.73m2 | [facility] | | | EQUATORIAL GUINEAN | RATE,ESTIMATED | | MEDICAL | | | | mL/min/1.52i4Eimr than | | CENTER - | | | | 60 Chronic kidney | | LABORATORY | | | | disease,if found over a | | | | | | 3-month period.Less than | | | | | | 15 Kidney failureFor | | | | | | | | | | | | Americans,multiply the | | | | | | calculated GFR by 1.21. | | | | | | | | | | + + + + + + | Calcium | 9.7 | 8.7 - 10.4 | [facility] | | | | | mg/dL | [facility] | | | | | | MEDICAL | | | | | | CENTER - | | | | | | LABORATORY | | + + + + + + | Albumin | 4.6 | 3.2 - 4.8 g/dL | [facility] | | | | | | [facility] | | | | | | MEDICAL | | | | | | CENTER - | | | | | | LABORATORY | | + + + + + + | Bilirubin | 0.8 | 0.3 - 1.2 mg/dL | [facility] | | | Total | | | [facility] | | | | | | MEDICAL | | | | | | CENTER - | | | | | | LABORATORY | | + + + + + + | Total | 7.0 | 5.7 - 8.2 g/dL | [facility] | | | Protein | | | [facility] | | | | | | MEDICAL | | | | | | CENTER - | | | | | | LABORATORY | | + + + + + + | AST | 21 | 0 - 34 U/L | [facility] | | | | | | [facility] | | | | | | MEDICAL | | | | | | CENTER - | | | | | | LABORATORY | | + + + + + + | ALT | 13 | 10 - 49 U/L | [facility] | | | | | | [facility] | | | | | | MEDICAL | | | | | | CENTER - | | | | | | LABORATORY | | + + + + + + | Alkaline | 36 (L) | 46 - 116 U/L | [facility] | | | Phosphatase | | | [facility] | | | | | | MEDICAL | | | | | | CENTER - | | | | | | LABORATORY | | + + + + + + | Globulin | 2.4 | 2.1 - 3.8 g/dL | [facility] | | | | | | [facility] | | | | | | MEDICAL | | | | | | CENTER - | | | | | | LABORATORY | | + + + + + + | Albumin/Dominique | 1.9 | 0.8 - 1.9 | [facility] | | | bulin Ratio | | | [facility] | | | | | | MEDICAL | | | | | | CENTER - | | | | | | LABORATORY | | + + + + + + | BUN/Creatin | 10.5 | | [facility] | | | ine Ratio | | | [facility] | | [...] | + + + + + | [facility] | [address] | [place] | [phone] | | [facility] | | [address] | | | - LABORATORY | | | | + + + + + CBC with Differential (12/18/2018 6:29 PM PDT) + + + + + + | Component | Value | Ref Range | Performed | Pathologist | | | | | At | Signature | + + + + + + | WBC | 6.5 | 4.0 - 11.0 K/uL | [facility] | | | | | | [facility] | | | | | | MED[facility] | | | | | | CENTER - | | | | | | LABORATORY | | + + + + + + | RBC | 4.39 | 3.70 - 5.20 | [facility] | | | | | M/uL | [facility] | | | | | | MEDICAL | | | | | | CENTER - | | | | | | LABORATORY | | + + + + + + | Hemoglobin | 13.5 | 11.5 - 16.0 | [facility] | | | | | g/dL | [facility] | | | | | | MEDICAL | | | | | | CENTER - | | | | | | LABORATORY | | + + + + + + | Hematocrit | 39.8 | 34.0 - 47.0 % | [facility] | | | | | | [facility] | | | | | | MEDICAL | | | | | | CENTER - | | | | | | LABORATORY | | + + + + + + | MCV | 90.7 | 83.0 - 101.0 fL | [facility] | | | | | | [facility] | | | | | | MEDICAL | | | | | | CENTER - | | | | | | LABORATORY | | + + + + + + | MCH | 30.8 | 28.0 - 35.0 pg | [facility] | | | | | | [facility] | | | | | | MEDICAL | | | | | | CENTER - | | | | | | LABORATORY | | + + + + + + | MCHC | 33.9 | 32.0 - 36.0 | [facility] | | | | | g/dL | [facility] | | | | | | MEDICAL | | | | | | CENTER - | | | | | | LABORATORY | | + + + + + + | RDW-CV | 11.3 | <15.0 % | [facility] | | | | | | [facility] | | | | | | MEDICAL | | | | | | CENTER - | | | | | | LABORATORY | | + + + + + + | RDW-SD | 37.6 | 35.1 - 46.3 fL | [facility] | | | | | | [facility] | | | | | | MEDICAL | | | | | | CENTER - | | | | | | LABORATORY | | + + + + + + | Platelet | 287 | 140 - 440 K/uL | [facility] | | | Count | | | [facility] | | | | | | MEDICAL | | | | | | CENTER - | | | | | | LABORATORY | | + + + + + + | MPV | 9.0 | 6.5 - 12.4 fL | [facility] | | | | | | [facility] | | | | | | MEDICAL | | | | | | CENTER - | | | | | | LABORATORY | | + + + + + + | % | 61.3 | 45.0 - 82.0 % | [facility] | | | Neutrophils | | | [facility] | | | | | | MEDICAL | | | | | | CENTER - | | | | | | LABORATORY | | + + + + + + | % | 27.8 | 20.0 - 45.0 % | [facility] | | | Lymphocytes | | | [facility] | | | | | | MEDICAL | | | | | | CENTER - | | | | | | LABORATORY | | + + + + + + | % Monocytes | 8.4 | 4.0 - 12.0 % | [facility] | | | | | | [facility] | | | | | | MEDICAL | | | | | | CENTER - | | | | | | LABORATORY | | + + + + + + | % | 1.4 | 0.0 - 5.0 % | [facility] | | | Eosinophils | | | [facility] | | | | | | MEDICAL | | | | | | CENTER - | | | | | | LABORATORY | | + + + + + + | % Basophils | 0.9 | 0.0 - 1.0 % | [facility] | | | | | | [facility] | | | | | | MEDICAL | | | | | | CENTER - | | | | | | LABORATORY | | + + + + + + | % Immature | 0.2Comment: For | 0.0 - 0.4 % | [facility] | | | Granulocyte | patients, use the | | [facility] | | | s | special reference ranges | | MEDICAL | | | | listed below. | | CENTER - | | | | | | LABORATORY | | + + + + + + | Absolute | 3.96 | 1.80 - 8.50 | [facility] | | | Neutrophils | | K/uL | [facility] | | | | | | MEDICAL | | | | | | CENTER - | | | | | | LABORATORY | | + + + + + + | Absolute | 1.79 | 0.60 - 3.20 | [facility] | | | Lymphocytes | | K/uL | [facility] | | | | | | MEDICAL | | | | | | CENTER - | | | | | | LABORATORY | | + + + + + + | Absolute | 0.54 | 0.00 - 1.00 | [facility] | | | Monocytes | | K/uL | [facility] | | | | | | MEDICAL | | | | | | CENTER - | | | | | | LABORATORY | | + + + + + + | Absolute | 0.09 | 0.00 - 0.40 | [facility] | | | Eosinophils | | K/uL | [facility] | | | | | | MEDICAL | | | | | | CENTER - | | | | | | LABORATORY | | + + + + + + | Absolute | 0.06 | 0.00 - 0.10 | [facility] | | | Basophils | | K/uL | [facility] | | | | | | MEDICAL | | | | | | CENTER - | | | | | | LABORATORY | | + + + + + + | Absolute | 0.01Comment: For | 0.00 - 0.03 | [facility] | | | Immature | patients, use | K/uL | [facility] | | | Granulocyte | the special reference | | MEDICAL | | | s | ranges listed below. | | CENTER - | | | | | | LABORATORY | | + + + + + + | % nRBC | 0 | 0 - 2 per 100 | [facility] | | | | | WBCs | [facility] | | | | | | MEDICAL | | | | | | CENTER - | | | | | | LABORATORY | | + + + + + + | Absolute | 0.00 | 0.00 - 0.01 | [facility] | | | nRBC | | K/uL | [facility] | | | | | | MEDICAL | | | | | | CENTER - | | | | | | LABORATORY | | + + + + + + + + | Specimen | + + | Blood | + + + + + | Narrative | Performed At | + + + | IMMATURE GRANULOCYTES - For patients, use the following | [facility] | | reference ranges: Trim. Absolute (K/uL) Percentage (%) | [facility] | | 1st 0.003-0.091 K/uL 0.0-0.9% 2nd 0.007-0.247 K/uL | [facility] | | 0.1-2.0% 3rd 0.018-0.456 K/uL 0.1-2.0% | - LABORATORY | + + + + + + + + | Performing | Address | City/State/Zipcode | Phone Number | | Organization | | | | + + + + + | [facility] | [address] | [place] | [phone] | | [facility] | | [address] | | | - LABORATORY | | | | + + + + + POCT Urinalysis (12/18/2018 5:52 PM PDT) + + + + + [...] 1.001 - 1.030 | | | | [place], | | | | | | UA, [...] + + + | Urobilinoge | 0.2 mg/dL | 0.2, Negative, | | | | [...] + | Urine | + + POCT Test, Urine, QUAL (12/18/2018 5:46 PM PDT) + + + + + + | Component | Value | Ref Range | Performed | Pathologist | | | | | At | Signature | + + + + + + | | Positive (A) | Negative | | | | Test, | | | | | | Urine, POC | | | | | + + + + + + | Internal QC | Acceptable | Acceptable | | | + + + + + + | Specific | | 1.010, 1.015, | | | | [place], | | 1.020, 1.025 | | | | POC | | | | | + + + + + + | Lot Number | [id number] | | | | + + + + + + | Expiration | 2019-12-27 | | | | | Date | | | | | + + + + + + + + | Specimen | + + | Urine | + + documented in this encounter Visit Diagnoses + + | Diagnosis | + + | Abnormal US - Primary Abnormal findings on screening | + + | Threatened Threatened , unspecified as to episode of care | + + documented in this encounter
--- OUTSIDE RECORDS SUMMARY | ~2019-08-11 | XMS | Encounter Summary ---
Demographics + + + | Address | [address] | | | [place] [address] | + + + | Home Phone | | + + + | Preferred Language | Unknown | + + + | Marital Status | Unknown | + + + | Jehovah'S Witness Affiliation | Unknown | + + + | Race | Unknown | + + + | Ethnic Group | Unknown | + + + Author + + + | Author | [facility] | | | and [place] | + + + | Organization | [facility] | | | and [...] [place] | | | | | [address] | | + + + + + Care Team Providers + +------+ + | Care Grain Picker Name | Role | Phone | + [...] Order | | 2019 | | [facility] | [address] | | | | | [address] | [place] | | | | | [place], [place] | [address] | | | | | [address] | | | | | | [phone] | | | +--------+ + + + [...]
--- OUTSIDE RECORDS SUMMARY | ~2019-08-11 | XMS | Encounter Summary ---
Demographics + + + | Address | [address] | | | [place] [address] | + + + | Home Phone | | + + + | Preferred Language | Unknown | + + + | Marital Status | Unknown | + + + | Mormon Affiliation | Unknown | + + + | Race | Unknown | + + + | Ethnic Group | Unknown | + + + Author + + + | Author | [facility] | | | and [place] | + + + | Organization | [facility] | | | [...] [place] | | | | | [address] | | + + + + + Care Team Providers + +------+ + | Care Cephalometric Analyst Name | Role | Phone | + +------+ + | Cyndi Bell MD | PCP | | + +------+ + Reason for Visit +--------+ + | Reason | Comments | +--------+ + | LABS | | +--------+ + Encounter Details +--------+ + + + + | Date | Type | Department | Care Team | Description | +--------+ + + + + | 04/12/ | Telephone | [facility] | Cyndi Bell MD | LABS | | 2019 | | [facility] [place] | [address] | | | | | [address] | [place] | | | | | [place] | [address] | | | | | [address] | | | | | | [phone] | | | +--------+ + + + [...]
--- OUTSIDE RECORDS SUMMARY | ~2019-08-11 | XMS | Encounter Summary ---
Demographics + + + | Address | [address] | | | [place] [address] | + + + | Home Phone [...] + + + | Author | [facility] | | | and [place] | + + + | Organization | [facility] | | [...] [place] | | | | | [address] | | + + + + + Care Team Providers + +------+ + | Care Nibbler Operator Name | Role | Phone | + [...] + | 07/27/ | Telephone | [facility] | Cyndi Bell MD | Medication Refill | | 2019 | | [facility] [place] | [address] | | | | | [address] | [place] | | | | | [place] | [address] | | | | | [address] | | | | | | [phone] | | | +--------+ + + + [...]
--- OUTSIDE RECORDS SUMMARY | ~2019-08-11 | XMS | Encounter Summary ---
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 Ask your healthcare providerbefore buying khfc-epk-rrpyydn acne treatments. Some of th kwaku, such [...] dry. If your healthcare providerhas approved any xgrf-bhp-ehzihug acne medicine, use as dir ected. Use [...] better about your skin. Date Last Reviewed: 09/18/[id number] [employer]. [address] [place] [address], [place] [address]. All righ ts reserved. This information is [...] rx for Clindamyclin oral for her acne. [facility] Recently established care with Dr. Bell [...] Portions of this report were transcribed using [employer] voice recognition soft mercedes. Although effort was [...]
--- OUTSIDE RECORDS SUMMARY | ~2019-08-11 | XMS | Encounter Summary ---
Demographics + + + | Address | [address] | | | [place] [address] | + + + | Home Phone | | + + + | Preferred Language | Unknown | + + + | Marital Status | Single | + + + | Congregation Affiliation [...] Team Providers + +------+ + | Care Retail Sales Associate Seasonal Name | Role | Phone | + [...] | | | | | [place] [address] | | +--------+ + + + + [...] | + +--------+ + + + | INSURANCE ADMINISTRATOR CYTOLOGY (PAP) | Routin | 06/09/2003 | | Results for this | | | e | | | procedure are in the | | | | | | results section. | + +--------+ + + + documented in this encounter Results INSURANCE ADMINISTRATOR CYTOLOGY (PAP) (06/09/2003) + + + + + + | Component | Value | Ref Range | Performed | Pathologist | | | | | At | Signature | + + + + + + | INSURANCE ADMINISTRATOR | SOURCE OF SPECIMEN: | | [facility] | | | CYTOLOGY | CervicalReason for | | DEPARTMENT | | | | Examination: Screening | | OF | | | | Pap (Low Risk)CLINICAL | | PATHOLOGY | | | | HISTORY: LMP: | | | | | | [id number] Diagnosis | | | | | | [...] | + + + + + | [facility] | [address] | [place] [address] | | | PATHOLOGY | MAHIN FOWLER | | | + + + + + | [facility] | [address] | [place] [address] | | | PATHOLOGY | MAHIN FOWLER | | | + + + + + documented in this encounter Visit Diagnoses Not on filedocumented in this encounter"
--- OUTSIDE RECORDS SUMMARY | ~2019-08-11 | XMS | Encounter Summary ---
Demographics + + + | Address | [address] | | | [place] [address] | + + + | Home Phone [...] [place] | | | | | [address] | | + + + + + Care Team Providers + +------+ + | Care Fire Boss Name | Role | Phone | + +------+ + | Cyndi Bell MD | PCP | | + +------+ + Encounter Details +--------+ + + + + | Date | Type | Department | Care Team | Description | +--------+ + + + + | 12/25/ | Abstract | [facility] | Cyndi Bell MD | | | 2019 | | [facility] | [address] | | | | | [address] | [place] | | | | | [place] | [address] | | | | | [address] | | | | | | [phone] | | | +--------+ + + + [...]
--- OUTSIDE RECORDS SUMMARY | ~2019-08-11 | XMS | Encounter Summary ---
Demographics + + + | Address | [address] | | | [place] [address] | + + + | Home Phone | | + + + | Preferred Language | Unknown | + + + | Marital Status | Unknown | + + + | Yazidism Affiliation | Unknown | + + + [...] [place] | | | | | [address] | | + + + + + Care Team Providers + +------+ + | Care Supervisor Coffee Name | Role | Phone | + [...] Miscarriage | | 2019 | | [facility] | [address] | | | | | [address] | [place], [place] | | | | | [place], [place] | [address] | | | | | [address] | | | | | | [phone] | | | +--------+ + + + [...]
--- OUTSIDE RECORDS SUMMARY | ~2019-08-11 | XMS | Encounter Summary ---
Demographics + + + | Address | [address] | | | [place] [address] | + + + | Home Phone | | + + + | Preferred Language | Unknown | + + + | Marital Status | Unknown | + + + | Mandaen Affiliation | Unknown | + + + | Race | Unknown | + + + | Ethnic Group | Unknown | + + + Author + + + | Author | [facility] | | | and [place] | + + + | Organization | [facility] | | [...] [place] | | | | | [address] | | + + + + + Care Team Providers + +------+ + | Care Synthetic Plasterer Name | Role | Phone | + +------+ + | Cyndi Bell MD | PCP | | + +------+ + Encounter Details +--------+ + + + + | Date | Type | Department | Care Team | Description | +--------+ + + + + | 05/21/ | Lab | [facility] | Belgica Zamudio | Encounter for | | 2019 | Requisition | [facility] | Nelia Jang DO | test, | | | | [address] [place] | [address] | result positive | | | | [place], [place] | [place], [place] | | | | | [address] | [address] | | | | | [phone] | | | +--------+ + + + [...] [address] | [place] | [phone] | | [facility] | | [address] | | | - LABORATORY | | | | + + + + + documented in this encounter Visit Diagnoses + + | Diagnosis | + + | Encounter for test, result positive examination or test, positive | | result | + + documented in this encounter"
--- OUTSIDE RECORDS SUMMARY | ~2019-08-11 | XMS | Encounter Summary ---
Demographics + + + | Address | [address] | | | [place] [address] | + + + | Home Phone [...] [place] | | | | | [address] | | + + + + + Care Team Providers + +------+ + | Care Waist Cutter Name | Role | Phone | [...] + | 01/18/ | Telephone | [facility] | Melody Bruner, | Lab Order; | | 2018 | | [facility] [place] | [address] | Miscarriage | | | | [address] | [place] | | | | | [place] | [address] | | | | | [address] | | | | | | [phone] | | | +--------+ + + + [...]
--- OUTSIDE RECORDS SUMMARY | ~2019-08-11 | XMS | Encounter Summary ---
Demographics + + + | Address | [address] | | | [place] [address] | + + + | Home Phone | | + + + | Preferred Language | Unknown | + + + | Marital Status | Unknown | + + + | Gnosticism Affiliation | Unknown | + + + | Race | Unknown | + + + | Ethnic Group | Unknown | + + + Author + + + | Author | [facility] | | | and [place] | + + + | Organization | [facility] | | | [...] [place] | | | | | [address] | | + + + + + Care Team Providers + +------+ + | Care Rubber Engraver Name | Role | Phone | + [...] Description | +--------+---------+ + + + | 12/21/ | Office | [facility] | Melody Bruner, | Miscarriage (Primary | | 2019 | Visit | [facility] [place] | [address] | Dx) | | | | [address] | [place] | | | | | [place] | [address] | | | | | [address] | | | | | | [phone] | | | +--------+---------+ + + + [...] + + + | Blood Pressure | 112/68 | 12/21/2018 11:49 AM | | | | | PDT | | + + + + + | Pulse | 66 | 12/21/2018 11:49 AM | | | | | PDT | | + + + + + | Temperature | 36.8 C (98.3 F) | 12/21/2018 11:49 AM | | | | | PDT | | + + + + + | Respiratory Rate | 16 | 12/21/2018 11:49 AM | | | | | PDT | | + + + + + | Oxygen Saturation | 100% | 12/21/2018 11:49 AM | | | | | PDT | | + + + + + | Inhaled Oxygen | - | - | | | Concentration | | | | + + + + + | Weight | 71.1 kg (156 lb 12 | 12/21/2018 11:49 AM | | | | oz) | PDT | | + + + + + | Height | - | - | | + + + + + | Body Mass Index | 24.55 | 12/18/2018 5:35 PM | | | | | PDT | | + + + + + documented in this encounter Progress Melody Young MD - 12/21/2018 11:30 AM PDTFormatting of this note might be different fr om the original. Chief Complaint: Miscarriage History: Daniele Connor is a 33 y.o. female HPI Patient is a 33-year-old -0-3-3, was scheduled to establish with me for OB care 01/19/[address] Bell. She has had 3 term vaginal deliveries, 2 terminations accomp lished with oral medication, last a year ago was a missed AB requiring a D&C. Feliz t was managed by women's clinic. Last week, she became concerned given her histor y of miscarriage and some mild left-sided cramping. She contacted women's clinic since I riley d not yet seen her, hCG levels were done. hCG 12/15 1775, 12/17 2114. She contacted me again 12/18, concerned about her hCG levels, concerned that she had some left-sided cramping for the prior 3 days. Given inappropriately rising hCG levels and some left-sided cramping, I advi sed her to be seen in the emergency room to make sure she did not have ectopic . Ultrasound was done in the ER 12/18/2018, showed irregular gestational sac but no pole. Repeat hCG 12/18 slightly lower at 2087. Since then, she has been having mild lower abdomin al cramping, but no spotting or bleeding to date. She reports her last year, and this her with a new partner, but he does have 2 children with another partner that are normal. Her 3 vaginal deliveries were all no rmal with the exception of her first that was complicated by preeclampsia. She is otherwise healthy, does admit to tobacco use. Had quit smoking in 2014, but says erik garcia restarted using cigarettes "this past winter". denies drug use. Patient Active Problem List Diagnosis Chronic midline low back pain without sciatica Acne vulgaris Musculoskeletal neck pain Less than 8 weeks gestation of Excoriated eczema Migraine with aura Pruritic disorder Sleep pattern disturbance Tension-type headache Outpatient Medications Prior to Visit Medication Sig Dispense Refill vitamin w/ferrous fumarate-folic acid ( PLUS) 27-1 mg tablet Take 1 ta blet by mouth Daily. No facility-administered medications prior to visit. OB History Para Term AB Living 7 3 3 0 3 2 SAB TAB Ectopic Molar Multiple Live Births 1 0 0 0 0 2 # Outcome Date GA Lbr Greg/2nd Weight Sex Delivery Anes PTL Lv 7 Current 6 SAB 11/30/17 SAB 5 AB 2011 4 Term 06/2009 38w0d F Vag-Spont 3 AB 2008 2 Term 08/2006 37w0d F Vag-Spont SHARRON 1 Term 12/2004 38w0d F Vag-Spont SHARRON Comments: induced due to pre-eclampsia, suffered placental abruption during labor Complications: Other Excessive Bleeding Review of Systems Constitutional: Positive for fatigue. Negative for activity change, appetite change, fever and unexpected weight change. HENT: Negative for congestion, rhinorrhea, sinus pressure, sore throat and trouble swallowi ng. Respiratory: Negative for cough, chest tightness and shortness of breath. Cardiovascular: Negative for chest pain, palpitations and leg swelling. Gastrointestinal: Positive for abdominal pain. Negative for constipation, diarrhea, nausea and vomiting. Genitourinary: Negative for difficulty urinating, dysuria, frequency and urgency. Musculoskeletal: Negative for arthralgias, back pain, myalgias and neck pain. Skin: Negative for rash. Neurological: Negative for dizziness, weakness, light-headedness and headaches. Psychiatric/Behavioral: Negative for dysphoric mood and sleep disturbance. The patient is n ot nervous/anxious. Results for orders placed or performed during the hospital encounter of 12/18/18 CBC with Differential Result Value Ref Range WBC 6.5 4.0 - 11.0 K/uL RBC 4.39 3.70 - 5.20 M/uL Hemoglobin 13.5 11.5 - 16.0 g/dL Hematocrit 39.8 34.0 - 47.0 % MCV 90.7 83.0 - 101.0 fL MCH 30.8 28.0 - 35.0 pg MCHC 33.9 32.0 - 36.0 g/dL RDW-CV 11.3 <15.0 % RDW-SD 37.6 35.1 - 46.3 fL Platelet Count 287 140 - 440 K/uL MPV 9.0 6.5 - 12.4 fL % Neutrophils 61.3 45.0 - 82.0 % % Lymphocytes 27.8 20.0 - 45.0 % % Monocytes 8.4 4.0 - 12.0 % % Eosinophils 1.4 0.0 - 5.0 % % Basophils 0.9 0.0 - 1.0 % % Immature Granulocytes 0.2 0.0 - 0.4 % Absolute Neutrophils 3.96 1.80 - 8.50 K/uL Absolute Lymphocytes 1.79 0.60 - 3.20 K/uL Absolute Monocytes 0.54 0.00 - 1.00 K/uL Absolute Eosinophils 0.09 0.00 - 0.40 K/uL Absolute Basophils 0.06 0.00 - 0.10 K/uL Absolute Immature Granulocytes 0.01 0.00 - 0.03 K/uL % nRBC 0 0 - 2 per 100 WBCs Absolute nRBC 0.00 0.00 - 0.01 K/uL Comprehensive Metabolic Panel Result Value Ref Range Na 138 136 - 145 mmol/L K 4.0 3.4 - 5.1 mmol/L Cl 105 98 - 107 mmol/L CO2 29 20 - 31 mmol/L Anion Gap 4 3 - 16 mmol/L Glucose 88 60 - 106 mg/dL BUN 6 (L) 9 - 23 mg/dL Creatinine 0.57 0.55 - 1.02 mg/dL eGFR if not >60 >=60 mL/min/1.73m2 Ca 9.7 8.7 - 10.4 mg/dL Albumin 4.6 3.2 - 4.8 g/dL Bilirubin Total 0.8 0.3 - 1.2 mg/dL Total Protein 7.0 5.7 - 8.2 g/dL AST 21 0 - 34 U/L ALT 13 10 - 49 U/L Alkaline Phosphatase 36 (L) 46 - 116 U/L Globulin 2.4 2.1 - 3.8 g/dL Albumin/Globulin Ratio 1.9 0.8 - 1.9 BUN/Creatinine Ratio 10.5 HCG, Serum, Quant Result Value Ref Range hCG Quant, Serum 2,087 (H) 2 - 4 mIU/mL POCT Urinalysis Result Value Ref Range Color, UA, POC Yellow Yellow, Light Yellow Clarity, UA, POC Clear Glucose, UA, POC Negative Negative Bilirubin, UA, POC Negative Negative Ketones, UA, POC Negative Negative, 100 mg/dL Specific [place], UA, POC 1.010 1.001 - 1.030 Blood, UA, POC Negative Negative pH, UA, POC 7.5 5.0, 6.0, 7.0, 8.0, 5.5, 6.5, 7.5 Protein, UA, POC Negative Negative Urobilinogen, UA, POC 0.2 mg/dL 0.2, Negative, Normal, < 0.2 mg/dL, 1 mg/dL, < 0.2 E.U./dl , 1.0 E.U./dL, 0.2 mg/dL Nitrite, UA, POC Negative Negative Leukocyte Esterase, UA, POC Negative Negative Reducing Substances, Urine Ictotest Negative Remark POCT Test, Urine, QUAL Result Value Ref Range Test, Urine, POC Positive (A) Negative Internal QC Acceptable Acceptable Specific [place], POC 1.010, 1.015, 1.020, 1.025 Lot Number [id number] Expiration Date 2019-12-27 ABO Rh Result Value Ref Range ABO A Rh Type Positive Health Maintenance Topics with due status: Overdue Topic Date Due Vaccine: Dtap/Tdap/Td 08/19/2014 Physical Examination: BP 112/68 | Pulse 66 | Temp 36.8 C (98.3 F) | Resp 16 | Wt 71.1 kg (156 lb 12 oz) | LMP 11/09/2018 | SpO2 100% | BMI 24.55 kg/m Ortho Exam Physical Exam No physical exam is done today. Assessment/Plan: 1. Miscarriage Reviewed hCG results and ultrasound results with patient today. All of this points to a no nviable . As mentioned above, she has had 3 prior pregnancies with vaginal deliver ies. Despite these last 2 pregnancies being with a new partner, that partner does have othe r children, so do not feel he would need work-up for chromosomal abnormality. At this point , she is having some mild cramping, but did not get any bleeding. Would like to make sure s he does not have prediabetes or thyroid issue contributing to miscarriages. She is having r egular menstrual cycles, so do not feel she needs work-up for luteal phase defect. I have r eassured her that she still has a very good chance of having a normal . I have sug gested she stop using tobacco, and continue to avoid marijuana. She will come back fasting in the morning for repeat hCG, fasting glucose, thyroid blood work and A1c. We will plan to see her back in 2 weeks for follow-up. If at that point, she has still had no vaginal blee ding, she would need referral to women's clinic to consider a D&C. She indicates understand ing, is agreeable with these plans. If blood work tomorrow shows her hCG continue to fall, she can cancel her ultrasound that was originally scheduled for next week. - HCG, Serum, Quant; Future - TSH; Future - T3, Free; Future - T4, Free; Future - Hemoglobin A1C; Future - Glucose, Fasting; Future Total time today is 30 minutes, all of which is in counseling and coordination of care rega rding the above issue(s). Follow-up: 2 weeks documented in this e ncounter Plan of Treatment Not on filedocumented as of this encounter Procedures + +--------+ + + + | Procedure Name | Priori | Date/Time | Associated Diagnosis | Comments | | | ty | | | | + +--------+ + + + | LABS - EXTERNAL SCAN | | 08/04/2018 | | Results for this | | | | 12:00 AM | | procedure are in the | | | | PST | | results section. | + +--------+ + + + documented in this encounter Results Glucose, Fasting (12/22/2018 7:10 AM PDT) + +-------+ + + + | Component | Value | Ref Range | Performed | Pathologist | | | | | At | Signature | + +-------+ + + + | Glucose, | 99 | 74 - 110 mg/dL | [facility] | | | Fasting | | | [facility] | | | | | | [facility] | | | | | | [facility] | | | | | | LABORATORY | | + +-------+ + + + + + | Specimen | + + | Blood | + + + + + + + | Performing | Address | City/State/Zipcode | Phone Number | | Organization | | | | + + + + + | [facility] | [address] | [place] | [phone] | | [facility] | | [address] | | | [facility] | | | | + + + + + Hemoglobin A1C (12/22/2018 7:10 AM PDT) + +-------+ + + + | Component | Value | Ref Range | Performed | Pathologist | | | | | At | Signature | + +-------+ + + + | Hemoglobin | 5.2 | 4.3 - 6.0 % | [facility] | | | A1c | | | [facility] | | | | | | MEDICAL | | | | | | CENTER - | | | | | | LABORATORY | | + +-------+ + + + | Estimated | 103 | mg/dL | [facility] | | | Average | | | [facility] | | | Glucose | | | MEDICAL | | | | | | CENTER - | | | | | | LABORATORY | | + +-------+ + + + + + | Specimen | + + | Blood | + + + + + + + | Performing | Address | City/State/Zipcode | Phone Number | | Organization | | | | + + + + + | [facility] | [address] | [place], [place] | [phone] | | [facility] | | [address] | | | - LABORATORY | | | | + + + + + T4, Free (12/22/2018 7:10 AM PDT) + +-------+ + + + | Component | Value | Ref Range | Performed | Pathologist | | | | | At | Signature | + +-------+ + + + | FT4 | 1.0 | 0.9 - 1.8 ng/dL | [facility] | | | | | | [facility] | | | | | | MEDICAL | | | | | | CENTER - | | | | | | LABORATORY | | + +-------+ + + + + + | Specimen | + + | Blood | + + + + + + + | Performing | Address | City/State/Zipcode | Phone Number | | Organization | | | | + + + + + | [facility] | [address] | [place] | [phone] | | [facility] | | [address] | | | - LABORATORY | | | | + + + + + T3, Free (12/22/2018 7:10 AM PDT) + +-------+ + + + | Component | Value | Ref Range | Performed | Pathologist | | | | | At | Signature | + +-------+ + + + | T3, Total | 2.5 | 2.0 - 4.4 pg/mL | [facility] | | | [facility] | | | LAB [facility] | | | | | | - [facility] | | + +-------+ + + + + + | Specimen | + + | Blood | + + + + + | Narrative | Performed At | + + + | Performed at: [address] [place] [address], | REFERENCE LAB | | [place], [place] [id number] Prevention Specialist: Giacomo Mccord MD, Phone: | [facility] | | [phone] | | + + + + + + + + | Performing | Address | City/State/Zipcode | Phone Number | | Organization | | | | + + + + + | REFERENCE LAB | [address] | [place] [address] | [phone] | | [facility] | Drive [facility] | | | + + + + + TSH (12/22/2018 7:10 AM PDT) + +-------+ + + + | Component | Value | Ref Range | Performed | Pathologist | | | | | At | Signature | + +-------+ + + + | TSH | 2.90 | 0.36 - 3.74 | [facility] | | | | | uIU/mL | [facility] | | | | | | [facility] | | | | | | [facility] | | | | | | LABORATORY | | + +-------+ + + + + + | Specimen | + + | Blood | + + + + + + + | Performing | Address | City/State/Zipcode | Phone Number | | Organization | | | | + + + + + | [facility] | [address] | [place] | [phone] | | [facility] | | [address] | | | [facility] | | | | + + + + + HCG, Serum, Quant (12/22/2018 7:10 AM PDT) + + + + + + | Component | Value | Ref Range | Performed | Pathologist | | | | | At | Signature | + + + + + + | hCG Quant, | 584 (H)Comment: | 0 - 6 mIU/mL | [facility] | | | Serum | REFERENCE RANGE: | | [facility] | | | | | | MEDICAL | | | | B-hCG | | PARK | | | | LEVELGestational Age | [...] + + + + + | [facility] | [address] | [place] | [phone] | | [facility] | | [address] | | | [place] | | | | + + + + + LABS - EXTERNAL SCAN (08/04/2018 12:00 AM PST) + + + | Narrative | Performed At | + + + | Ordered by an | | | unspecified provider. | | + + + documented in this encounter Visit Diagnoses + + | Diagnosis | + + | Miscarriage - Primary Unspecified spontaneous without mention of | | complication | + + documented in this encounter
--- OUTSIDE RECORDS SUMMARY | ~2019-08-11 | XMS | Encounter Summary ---
Demographics + + + | Address | [address] | | | [place] [address] | + + + | Home Phone [...] [place] | | | | | [address] | | + + + + + Care Team Providers + +------+ + | Care Industrial Millwright Name | Role | Phone | + [...] + + | 12/21/ | Office | [facility] | Melody Bruner, | Miscarriage (Primary | | 2019 | Visit | MEDICINE [place] | [address] | Dx) | | | | [address] | [place] | | | | | [place] | [address] | | | | | [address] | | | | | | [phone] | | | +--------+---------+ + + + [...] UA, POC Negative Negative, 100 mg/dL Specific [place], UA, POC 1.010 1.001 - 1.030 Blood, [...] (A) Negative Internal QC Acceptable Acceptable Specific [place], POC 1.010, 1.015, 1.020, 1.025 Lot Number [id number] Expiration Date 2019-12-27 ABO Rh Result Value [...] + + | [facility] | [address] | [place] | [phone] | | [facility] | | [address] | | | [facility] | | [...] ST. | [address] | [place], [place] | [phone] | | [facility] | | [address] | | | - LABORATORY | | [...] [address] | [place] | [phone] | | [facility] | | [address] | | | - LABORATORY | | [...] + | Performed at: [address] [address], | REFERENCE LAB | | [place], [place] [id number] [employer]ed [employer] Layout Taper: Giacomo Mccord MD, Phone: | [facility] [place] | | [phone] | | + + + + + + + + | Performing | Address | City/State/Zipcode | Phone Number | | Organization | | | | + + + + + | REFERENCE LAB | [address] | [place] [address] | [phone] | | [facility] | Drive [facility] | | | + + + + [...] + + + | [facility] | [address] | [place] | [phone] | | [facility] | | [address] | | | [facility] | | [...] | Serum | REFERENCE RANGE: | | [facility] | | | | | | MEDICAL [...] + + + | [facility] | [address] | [place] | [phone] | | [facility] | | [address] | | | [place] | | [...]
--- OUTSIDE RECORDS SUMMARY | ~2019-08-11 | XMS | Encounter Summary ---
Demographics + + + | Address | [address] | | | [place] [address] | + + + | Home Phone | | + + + | Preferred Language | Unknown | + + + | Marital Status | Unknown | + + + | Hinduism Affiliation | Unknown | + + + | Race | Unknown | + + + | Ethnic Group | Unknown | + + + Author + + + | Author | [facility] | | | and [place] | + + + | Organization | [facility] | | [...] [place] | | | | | [address] | | + + + + + Care Team Providers + +------+ + | Care Cat Scan Tech Name | Role | Phone | [...] | | | 2019 | | [facility] [place] | [address] | | | | | [address] | [place] | | | | | [place] | [address] | | | | | [address] | | | | | | [phone] | | | +--------+ + + + [...]
--- OUTSIDE RECORDS SUMMARY | ~2019-08-11 | XMS | Encounter Summary ---
Demographics + + + | Address | [address] | | | [place] [address] | + + + | Home Phone [...] [place] | | | | | [address] | | + + + + + Care Team Providers + +------+ + | Care Attending Anesthesiologist Name | Role | Phone | + [...] + | 02/15/ | Office | [facility] | Darwin Young, | Abdominal bloating | | 2018 | Visit | CARE [address] | [address] | (Primary Dx); Acute | | | | [place], [place] | [place] | vaginitis | | | | [address] | [address] | | | | | [phone] | | | +--------+---------+ + + + [...] a week ago, after swimming [place] the [place]. Because of this 3 days ago she [...] | 1.010, 1.015, | | | | [place], | | 1.020, 1.025 | | | | POC | | | | | + + + + + + | Lot Number | [id number] | | | | + + + [...] 1.001 - 1.030 | | | | [place], | | | | | | UA, [...] + | Performed at: 01 - [facility] [address] [place] [address], | REFERENCE LAB | | [place] [id number] Licensed Certified Orthotist: Chandler Barnett MD, Phone: | [place] | | [phone] | | + + + + + + + + | Performing | Address | City/State/Zipcode | Phone Number | | Organization | | | | + + + + + | REFERENCE LAB | [address] | [place] [address] | [phone] | | [facility] | Drive [...] + | [facility] | [address] | [place], [place] | [phone] | | [facility] | | [address] | | | - LABORATORY | | | | + + + + + documented in this encounter Visit Diagnoses + + | Diagnosis | + + | Abdominal bloating - Primary Flatulence, eructation, and gas pain | + + | Acute vaginitis Vaginitis and vulvovaginitis, unspecified | + + documented in this encounter
--- OUTSIDE RECORDS SUMMARY | ~2019-08-11 | XMS | Encounter Summary ---
Demographics + + + | Address | [address] | | | [place] [address] | + + + | Home Phone [...] + + + | Author | [facility] | | | and [place] | + + + | Organization | [facility] | | [...] [place] | | | | | [address] | | + + + + + Care Team Providers + +------+ + | Care Carriage Rider Name | Role | Phone | + [...] + | 04/12/ | Telephone | [facility] | Cyndi Bell MD | LABS | | 2019 | | MEDICINE [place] | [address] | | | | | [address] | [place] | | | | | [place] | [address] | | | | | [address] | | | | | | [phone] | | | +--------+ + + + [...]
--- OUTSIDE RECORDS SUMMARY | ~2019-08-11 | XMS | Encounter Summary ---
Demographics + + + | Address | [address] | | | [place] [address] | + + + | Home Phone [...] Author + + + | Author | [facility] | + + + | Organization | [facility] | + + + | Address | Unknown | + + + | Phone | Unavailable | + + + Support + + +---------+ + | Name | Relationship | Address | Phone | + + +---------+ + | Bev Meredith | ECON | Unknown | | + + +---------+ + Care Team Providers + +------+ + | Care Stereo Equipment Salesperson Name | Role | Phone | + [...] | | | | , [place] | [address] | | | | | [address] | [phone] | | | | | [phone] | | | +--------+ + + + [...]
--- OUTSIDE RECORDS SUMMARY | ~2019-08-11 | XMS | Clinical Summary ---
Demographics + + + | Address | [address] | | | [place] [address] | + + + | Home Phone | | + + + | Preferred Language | Unknown | + + + | Marital Status | Single | + + + | Jewish Affiliation | Unknown | + + + | Race | White | + + + | Ethnic Group | Not or | + + + Author + + + | Author | [facility] | + + + | Organization | [facility] | + + + | Address | Unknown | + + + | Phone | Unavailable | + + + Support + + +---------+ + | Name | Relationship | Address | Phone | + + +---------+ + | Bev Meredith | ECON | Unknown | | + + +---------+ + Care Team Providers + +------+ + | Care Production Finisher Name | Role | Phone | + +------+ + | Michelle Holloway AUTOMOBILE SERVICE ADVISOR | PCP | | + +------+ + Source Comments THIEN is fully live on both [facility] Ambulatory and [facility] InPatient.[facility] Allergies Not on File Medications Not on [...] | | | + +--------+ +--------+-------+---------+--------+ | OCCUPATIONAL HEALTH TECHNICIAN MEDICAID | OCCUPATIONAL HEALTH TECHNICIAN | xxxxxxxx | Effect | | | [...] al/Fam | | 1984 | [phone] | [place] [address] | | | eddy | | | 0 (Home) | | + +--------+ +--------+ + + | Dan[place] | Person | Self | [birth year] | [address] | | | al/Fam | | 1984 | [phone] | [place] [address] | | | eddy | | | 1 (Home) | | + +--------+ +--------+ + +"
--- OUTSIDE RECORDS SUMMARY | ~2019-08-11 | XMS | Encounter Summary ---
Demographics + + + | Address | [address] | | | [place] [address] | + + + | Home Phone | | + + + | Preferred Language | Unknown | + + + | Marital Status | Unknown | + + + | Druze Affiliation | Unknown | + + + | Race | Unknown | + + + | Ethnic Group | Unknown | + + + Author + + + | Author | [facility] | | | and [place] | + + + | Organization | [facility] | | | [...] [place] | | | | | [address] | | + + + + + Care Team Providers + +------+ + | Care Manager Access Name | Role | Phone | + [...] | 04/13/ | Telephone | [facility] | Cyndi Bell MD | Lab Order | | 2019 | | [facility] | [address] | | | | | [address] | [place] | | | | | [place], [place] | [address] | | | | | [address] | | | | | | [phone] | | | +--------+ + + + [...]
--- OUTSIDE RECORDS SUMMARY | ~2019-08-11 | XMS | Encounter Summary ---
Demographics + + + | Address | [address] | | | [place] [address] | + + + | Home Phone | | + + + | Preferred Language | Unknown | + + + | Marital Status | Unknown | + + + | Jew Affiliation | Unknown | + + + [...] [place] | | | | | [address] | | + + + + + Care Team Providers + +------+ + | Care Long Chain Quiller Tender Name | Role | Phone | + [...] [place] | | | | | [address] | [address] | | | | | [phone] | | | +--------+ + + + [...]
--- OUTSIDE RECORDS SUMMARY | ~2019-08-11 | XMS | Encounter Summary ---
Demographics + + + | Address | [address] | | | [place] [address] | + + + | Home Phone | | + + + | Preferred Language | Unknown | + + + | Marital Status | Unknown | + + + | Anglican Affiliation | Unknown | + + + | Race | Unknown | + + + | Ethnic Group | Unknown | + + + Author + + + | Author | [facility] | | | and [place] | + + + | Organization | [facility] | | [...] [place] | | | | | [address] | | + + + + + Care Team Providers + +------+ + | Care Supervisor Varnish Name | Role | Phone | + [...] + + | 12/18/ | Emergency | [facility] | [facility] | Abnormal | | 2019 | | [facility] | Giovanni, DO [address] | [place] (Primary Dx); | | | | CENTER [address] | [address] [place] | Threatened | | | | [place], [place] | [place] [address] | | | | | [address] | [phone] | | | | | [phone] | | | +--------+ + + + [...] through Care Everywhere.Possible Miscar riage (Threatened ) (Cambodian)documented in this encounter Medications at Time of [...] conveyed to the ordering provider, by the mid level project manager, | | | immediately following the exam. [...] the ordering provider, by the | | mid level project manager, immediately following the exam. | | | | Dictated and Signed by: Lazaro Linda MD | | Electronically signed: 12/18/2018 8:38 PM | + + + +---------+ + + | Performing | Address | City/State/[facility] | Phone Number | | Organization | [...] [address] | [place] | [phone] | | [facility] | | [address] | | | - LABORATORY | | [...] St | [place] | | | [facility] | | [address] | | | - BLOOD BANK | [...] mL/min/1.73m2 | [facility] | | | [place] | RATE,ESTIMATED | | MEDICAL | | | | mL/min/1.42z8Wikf than | | CENTER - | | [...] | 9.7 | 8.7 - 10.4 | [facility] | | | | | mg/dL | [...] [address] | [place] | [phone] | | [facility] | | [address] | | | - LABORATORY | | [...] | | | | M/uL | [facility] | | | | [...] ranges: Trim. Absolute (K/uL) Percentage (%) | [facility] | | 1st 0.003-0.091 K/uL 0.0-0.9% 2nd 0.007-0.247 K/uL | [facility] | | 0.1-2.0% 3rd 0.018-0.456 K/uL 0.1-2.0% | - LABORATORY | + + + + + + + + | Performing | Address | City/State/Zipcode | Phone Number | | Organization | | | | + + + + + | [address] | [address] | [place] | [phone] | | [facility] | | [address] | | | - LABORATORY | | [...] 1.001 - 1.030 | | | | [place], | | | | | | UA, [...] | 1.010, 1.015, | | | | [place], | | 1.020, 1.025 | | | | POC | | | | | + + + + + + | Lot Number | [id number] | | | | + + + [...]
[~2019-08-11 08:26] MED LIST: ACYCLOVIR400 MG PO; AMMONIUM LACTA140 GM TOP; BACTRIM DS TAB1 EACH PO; DOXEPIN HCL10 MG PO; IBUPROFEN400 MG PO; IBUPROFEN800 MG PO; NAPROSYN500 MG PO; NORCO 5-325 TA1 EACH PO; SUMATRIPTAN SU100 MG PO
[2019-08-11] MEDS ORDERED: BACTRIM DS TAB1 EACH PO (09:22)
== END 2019-08-11 09:32 | disposition home or self-care (01) ==
LOC: ED 08:26
DX: N39.0 Urinary tract infection, site not specified (principal); Z79.899 Other long term (current) drug therapy
CPT/HCPCS: 81001; 84703; 99283

== ENCOUNTER 2020-11-21 06:06 | Day surgery (SDC) | payer OTHER ==
[~2020-11-21] VITALS: Ht 170.2 cm; Wt 65.5 kg
--- NOTE | 2020-11-21 09:26 | NUR ---
11/21/20 0926 Tracee Heard 0819 PT ARRIVED IN PACU SLEEPY C/O NAUSEA. COOL CLOTH GIVEN. 08 PHENERGAN 12.5MG GIVEN SLOW IVP. 0845 RESTING. AT BEDSIDE. 0900 NAUSEA GONE. SLEEPY. 0915 TO DS TILL READY FOR DC HOME.
--- NOTE | 2020-11-21 09:29 | NUR ---
BOYFRIEND IS AT THE BEDSIDE. ICED WATER IS GIVEN. CALL LIGHT IS WITHIN REACH.
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
--- NOTE | 2020-11-22 13:15 | OR ---
[facility] [address] [place], [place] [address] Signed DATE OF OPERATION: 11/21/2020 SURGEON: Mekhi Caballero MD PREOPERATIVE DIAGNOSIS: Missed . POSTOPERATIVE DIAGNOSIS: Missed . PROCEDURE: Suction dilation and curettage. ANESTHESIA: MAC. ESTIMATED BLOOD LOSS: 200 mL. SPECIMENS: Products of conception. DRAINS: None. PACKING: None. FINDINGS: Cervix, thick, closed. Uterus approximately 11-week size. There was a large amount of tissue within the uterine cavity. No parts were seen. COMPLICATIONS: None. Anora miscarriage test kit was collected and will be sent for genetic study. DESCRIPTION OF PROCEDURE: The patient was brought to the operating room, placed in supine position. After adequate anesthesia was obtained, the patient was placed in dorsal lithotomy position, Electronically Signed By: MEKHI CABALLERO MD 11/22/20 1315 PATIENT NAME: TAMARA BULLOCK OPERATIVE REPORT DATE OF : 83 REPORT #: [id number] PHYSICIAN: MEKHI CABALLERO MD PCP: MELODY LOMBARDI MD REPORT IS CONFIDENTIAL AND NOT TO BE RELEASED WITHOUT AUTHORIZATION [facility] [address] [place], [place] [address] Signed prepped and draped in the usual sterile fashion. A bimanual exam was done to determine the size and position of the uterus. A weighted speculum was then placed in the vagina and the anterior lip of the cervix was grasped with an Allis clamp. The cervix was serially dilated. Then, a #10 curved suction tip curette was attached to the suction machine and the suction tested. The curette was then carefully introduced into the uterus to the fundus and then suction applied while the curette was turned in 360-degree fashion and slowly moved towards the lower segment. This was done several times and then the cavity scraped in 360-degree fashion, inserting the curette carefully without suction and drawing back out under suction. At one point, a large portion of placental like tissue was seen in the os, so this was carefully grasped and removed with an Allis clamp. The tissue was floated in sterile saline to be cleaned and to be used as specimen for the Anora test. The curetting was continued until no additional tissue was removed in the normal empty field, the uterus was noted throughout. All instruments were removed. The uterus repalpated and noted to be somewhat smaller and more firm. The cervix was then re-examined, noted to have good hemostasis. At this point, the procedure was terminated. All instruments were removed. The patient tolerated the procedure well and went to the recovery room in good condition. The specimen was floated and cleaned in sterile saline and then placed in the specimen cup for the Anora test to be sent off for chromosome analysis. The patient tolerated the procedure well and went to the recovery room in good condition. The rest of the uterine curettings sent to Pathology for identification. MD [facility]/ZAYNAB /[id number] cc: Melody Lombardi MD Copies: MELODY LOMBARDI MD ~ Electronically Signed By: MEKHI CABALLERO MD 11/22/20 1315 PATIENT NAME: TAMARA BULLOCK OPERATIVE REPORT DATE OF : 83 REPORT #: [id number] PHYSICIAN: MEKHI CABALLERO MD PCP: MELODY LOMBARDI MD REPORT IS CONFIDENTIAL AND NOT TO BE RELEASED WITHOUT AUTHORIZATION
== END 2020-11-21 10:30 | disposition home or self-care (01) ==
LOC: OPS 06:06 → DS 06:06 → OPS 06:45
PROVIDERS: ATTEND General Practice
PROC: 10D17ZZ Extraction of Products of Conception, Retained, Via Natural or Artificial Opening (ICD-10-PCS; principal; 2020-11-21 06:45)
DX: O02.1 Missed abortion (principal); G47.30 Sleep apnea, unspecified; G89.29 Other chronic pain; M54.2 Cervicalgia; M54.6 Pain in thoracic spine; G43.909 Migraine, unspecified, not intractable, without status migrainosus; Z91.19 Patient's noncompliance with other medical treatment and regimen; Z86.19 Personal history of other infectious and parasitic diseases
CPT/HCPCS: 00952; 88305; J0131; J1100; J1885; J2001; J2250; J2405; J2550; J2704; J3010; J7121

== ENCOUNTER 2020-11-26 13:51 | Emergency (ER) | payer OTHER ==
[~2020-11-26] VITALS: Ht 170.2 cm; Wt 67.3 kg
[2020-11-26] MEDS ORDERED: ZOLOFT25 MG PO (16:07)
[2020-11-26] MEDS ORDERED: XANAX0.5 MG PO (16:07)
== END 2020-11-26 16:16 | disposition home or self-care (01) ==
LOC: ED 13:51
DX: O99.345 Other mental disorders complicating the puerperium (principal); F53.0 Postpartum depression
CPT/HCPCS: 80053; 84443; 85025; 99284

== ENCOUNTER 2022-05-10 05:55 | Inpatient (IN) | payer OTHER ==
[~2022-05-10] VITALS: Ht 170.2 cm; Wt 75.8 kg
[~2022-05-10 05:55] MED LIST changes: +XANAX0.5 MG PO; +ZOLOFT25 MG PO
--- NOTE | 2022-05-10 09:37 | PR ---
[facility] [address] [facility] [place], [place] [address] Signed Progress Notes IP Datetime Report Generated by CPNigel: 05/10/2022 09:37 PROGRESS NOTES: [id number] Impression: Reassuring Heart Rate Procedures: Sterile Vag Exam Plan: Cervical Ripening VITAL SIGNS: [id number] Vital Signs: Reviewed; Within Normal Limits EXAM: [id number] Dilatation: 2.5 Effacement: 50 Station: -2 Contractions: occ MEMBRANES: [id number] Comments: Will begin Cytotec induction as having rare contractions. status overall reassuring. FETUS A: [id number] FHR Baseline: 145 Variability: Moderate 6-25bpm Accelerations: 15X15 Decelerations: None FHR Category: Category I Presentation: Vertex Comments on Fetus A: no evidence of metabolic acidosis FETUS B: [id number] Signing Physician: Juaquin Benitez MD Copies: ~ *Electronically Signed* 05/10/22936 JUAQUIN BENITEZ MD PATIENT NAME: TAMARA BULLOCK PROGRESS NOTE DATE OF : [birth year] PHYSICIAN: JUAQUIN BENITEZ MD RPT #: [id number] REPORT IS CONFIDENTIAL AND NOT TO BE RELEASED WITHOUT AUTHORIZATION
--- NOTE | 2022-05-10 14:17 | PR ---
[facility] [address] [facility] [place], [place] [address] Signed Progress Notes IP Datetime Report Generated by KIRSTIN: 05/10/2022 14:17 PROGRESS NOTES: [id number] Impression: Normal Progression of Labor Procedures: Artificial ROM; Scalp Electrode Plan: Continue Present Management; Anesthesia Consult VITAL SIGNS: [id number] Vital Signs: Reviewed; Within Normal Limits EXAM: [id number] Dilatation: 3.0 Effacement: 70 Station: -2 Contractions: occ MEMBRANES: [id number] Comments: Still comfortable. Epidural now after AROM. FETUS A: [id number] FHR Baseline: 145 Variability: Moderate 6-25bpm Accelerations: 15X15 Decelerations: None FHR Category: Category I Presentation: Vertex Comments on Fetus A: no evidence of metabolic acidosis FETUS B: [id number] Signing Physician: Pearl Benitez MD Copies: ~ *Electronically Signed* 05/10/22 1417 PEARL BENITEZ MD PATIENT NAME: TAMARA BULLOCK PROGRESS NOTE DATE OF : [birth year] PHYSICIAN: PEARL BENITEZ MD RPT #: [id number] REPORT IS CONFIDENTIAL AND NOT TO BE RELEASED WITHOUT AUTHORIZATION
--- NOTE | 2022-05-10 17:38 | PR ---
[facility] [address] [facility] [place], [place] [address] Signed Progress Notes IP Datetime Report Generated by KIRSTIN: 05/10/2022 17:38 PROGRESS NOTES: [id number] Impression: Reassuring Heart Rate Procedures: Intrauterine Pressure Catheter Plan: Augmentation; Anesthesia Consult VITAL SIGNS: L0100390 Vital Signs: Reviewed; Within Normal Limits EXAM: [id number] Dilatation: 4.0 Effacement: 70 Station: -2 Contractions: occ MEMBRANES: [id number] Comments: Not much progress and becoming uncomfortable again. Will redose epidural and will likely need pitocin augmentation if IUPC documents poor contraction strength. FETUS A: [id number] FHR Baseline: 145 Variability: Moderate 6-25bpm Accelerations: 15X15 Decelerations: None FHR Category: Category I Presentation: Vertex Comments on Fetus A: no evidence of metabolic acidosis FETUS B: [id number] Signing Physician: Pearl Benitez MD Copies: ~ *Electronically Signed* 05/10/22 1738 PEARL BENITEZ MD PATIENT NAME: TAMARA BULLOCK PROGRESS NOTE DATE OF : [birth year] PHYSICIAN: PEARL BENITEZ MD RPT #: [id number] REPORT IS CONFIDENTIAL AND NOT TO BE RELEASED WITHOUT AUTHORIZATION
--- NOTE | 2022-05-11 08:17 | PR ---
[facility] [address] [facility] [place], [place] [address] Signed PP Progress Notes Datetime Report Generated by CPN: 05/11/2022 08:17 SUBJECTIVE: [id number] Pain: Within Normal Limits Pain Comments: has had little sleep Nausea/Vomiting: Denies Vital Signs: [id number] Vital Signs: Reviewed; Within Normal Limits EXAM: Ongoing Cardiovascular: Not Done Respiratory: Not Done Abdomen/Uterus: Abnormal Lochia: Normal Vulva/Perineum: Not Done Breasts: Not Done CVA Tenderness: Not Done Extremities: Normal Incision: Not Applicable Progress: Normal Exam Comments: Fundus firm, NT @ U-2. 12.2/37.1, WBC 11.8, plat 233k IMPRESSION/PLAN/PROCEDURES: [id number] Impression: Normal Progression Plan: Discharge Procedures: None Progress Notes: Doing well. She desires D/C at 24 hrs if possible. I think this is reasonable. Signing Physician: Pearl Benitez MD Copies: ~ *Electronically Signed* 05/11/22816 PEARL BENITEZ MD PATIENT NAME: ARCENIO BULLOCKYAKELIN STERN PROGRESS NOTE DATE OF : [birth year] PHYSICIAN: PEARL BENITEZ MD RPT #: [id number] REPORT IS CONFIDENTIAL AND NOT TO BE RELEASED WITHOUT AUTHORIZATION
== END 2022-05-11 20:40 | disposition home or self-care (01) | DRG 806 ==
LOC: FBC 05:55
PROVIDERS: ADMIT Obstetrics & Gynecology; ATTEND Obstetrics & Gynecology
PROC: 0HQ9XZZ Repair Perineum Skin, External Approach (ICD-10-PCS; principal; 2022-05-10)
PROC: 10E0XZZ Delivery of Products of Conception, External Approach (ICD-10-PCS; 2022-05-10)
PROC: 10907ZC Drainage of Amniotic Fluid, Therapeutic from Products of Conception, Via Natural or Artificial Opening (ICD-10-PCS; 2022-05-10)
PROC: 3E0P7VZ Introduction of Hormone into Female Reproductive, Via Natural or Artificial Opening (ICD-10-PCS; 2022-05-10)
DX: O48.0 Post-term pregnancy (principal); O98.52 Other viral diseases complicating childbirth; Z37.0 Single live birth; Z3A.40 40 weeks gestation of pregnancy; B00.9 Herpesviral infection, unspecified; O70.0 First degree perineal laceration during delivery; O99.824 Streptococcus B carrier state complicating childbirth; Z87.891 Personal history of nicotine dependence; Z67.10 Type A blood, Rh positive; Z98.890 Other specified postprocedural states
CPT/HCPCS: 01960; 36415; 82803; 85025; 85027; 86850; 86900; 86901; A9270; J2405; J2540; J2590; J2795; J3010

== ENCOUNTER 2022-07-16 09:55 | Emergency (ER) | payer OTHER ==
[~2022-07-16] VITALS: Ht 170.2 cm; Wt 69.6 kg
[2022-07-16] MEDS ORDERED: ACYCLOVIR800 MG PO (10:16)
[2022-07-16] MEDS ORDERED: IBUPROFEN600 MG PO (10:16)
[2022-07-16] MEDS ORDERED: PREDNISONE20 MG PO (10:31)
== END 2022-07-16 10:43 | disposition home or self-care (01) ==
LOC: ED 09:55
DX: G62.9 Polyneuropathy, unspecified (principal); M54.2 Cervicalgia; Z87.891 Personal history of nicotine dependence
CPT/HCPCS: 99283; J7512

== ENCOUNTER 2023-07-16 06:25 | Day surgery (SDC) | payer OTHER ==
[2023-07-07 15:38] VITALS: BP 112/80
[~2023-07-16] VITALS: Ht 170.2 cm; Wt 68.6 kg
[~2023-07-16 06:25] MED LIST changes: +ACYCLOVIR800 MG PO; +IBUPROFEN600 MG PO; +PREDNISONE20 MG PO
[2023-07-16 06:47] VITALS: BP 109/64
--- NOTE | 2023-07-16 07:44 | NUR ---
REQUESTED AND GIVEN BEAR HUGGER ON AND EXPLANATIONS FOR OPERATING DEVICE. STATES OK TO UNDERSTANDING.
--- NOTE | 2023-07-16 09:57 | NUR ---
07/16/23 0957 Essie Kahn 0999 PT TO PACU SLEEPY BUT AROUSABLE. O2 VIA MASK FOGGING NOTED IN MASK.
[2023-07-16 10:25] VITALS: BP 106/61
--- NOTE | 2023-07-16 10:41 | NUR ---
1025: PT RETURNS TO UNIT VIA STRETCHER. DROWSY ON ARRIVAL. VSS, RESP EVEN AND UNLABORED. REPORTS PRESSURE FROM CATH BUT DENIES PAIN AND NAUSEA AT THIS TIME. SCANT AMOUNT OF RED DRAINAGE TO PERIPAD. CORONA DRAINS FLUOROSCENE YELLOW AT THE BEDSIDE. POC DISCUSSED AND PT AGREEABLE. ICE WATER PROVIDED. LIGHTS DIMMED AND BEAR HUGGER IN PLACE FOR COMFORT. NO NEEDS VOICED, CALL LIGHT WITHIN REACH
[2023-07-16 11:25] VITALS: BP 94/56
--- NOTE | 2023-07-16 12:35 | NUR ---
1025: PT RETURNS TO THE UNIT VIA STRETCHER FROM PACU, DROWSY ON ARRIVAL. VSS, RESP EVEN AND UNLABORED. REPORTS PRESSURE D/T CATH AND REPORTS PAIN 3/10 BUT DENIES NAUSEA AND NEED FOR PAIN RX. SCANT AMOUNT OF RED DRAINAGE NOTED ON PERIPAD. CORONA DRAINS CLEAR YELLOW URINE AT THE BEDSIDE. POC DISCUSSED AND PT AGREEABLE. ICE WATER PROVIDED. LIGHTS DIMMED AND BEAR HUGGER IN PLACE FOR PT COMFORT. NO NEEDS AT THIS TIME, CALL LIGHT WITHIN REACH 1125: PT AWAKE AND ALERT IN STRETCHER VISITING WITH SO. VSS, RESP EVEN AND UNLABORED. DESCRIBES BLADDER SPASMS AND REPORTS THE DISCOMFORT 7/10. DENIES DESIRE FOR PAIN RX AT THIS TIME. 10MLS OF NS REMOVED FROM CORONA BALLOON AND CATH REMOVED. CHX BROTH PROVIDED REQUESTED. NO NEEDS VOICED, CALL LIGHT WITHIN REACH
[2023-07-16 12:54] VITALS: BP 111/53
--- NOTE | 2023-07-16 13:06 | NUR ---
1300- PT AMBULATED WITH STEADY GAIT TO BATHROOM. PRE AND POST VOID BLADDER SCAN PERFORMED. BRIGHT RED BLOOD IN HAT WITH 2 SMALL CLOTS. CONNOR PAD HAS SMALL AMOUNT OF BLOOD, NEW PAD PLACED TO ASSESS BLEEDING. PT SIGNIFICANT OTHER BROUGHT FOOD TO PATIENT, TOLERATED WELL. PT REQUESTS SOMETHING FOR PAIN, MEDICATED PER ORDERS.
[2023-07-16 13:38] VITALS: BP 109/51
--- NOTE | 2023-07-16 13:39 | NUR ---
1330: PT AWAKE AND ALERT IN STRETCHER. ADOLPH PO INTAKE, REPORTS IMPROVED PAIN CONTROL. 09/27. VSS, RESP EVEN AND UNLABORED. MOD AMOUNT OF RED DRAINAGE ON PERIPAD. 1335: TC PLACED TO MD RANDAL. BLEEDING DISCUSSED AND PT SAFE TO DC HOME AT THIS TIME PER MD. PT DRESSES INDEPENDENTLY FOR DC
--- NOTE | 2023-07-16 13:59 | NUR ---
1345: DC INSTRUCTIONS PROVIDED AND DISCUSSED ORDERED. PT VOICES UNDERSTANDING AND DENIES QUESTIONS AND CONCERNS. SL REMOVED WITH CATH TIP INTACT AND PRESSURE APPLIED TO SITE, WNL. PT TO CALL FOR THIS RN WHEN RETURNS FOR DC
--- NOTE | 2023-07-18 18:46 | OR ---
[facility] [address] [place], [place] [address] Signed DATE OF OPERATION: 07/16/2023 SURGEON: Pearl Benitez MD COIL WINDER HAND: CAITLYN Ace DO PREOPERATIVE DIAGNOSES: Grade 3 cystocele, stress incontinence, cervical leukoplakia. POSTOPERATIVE DIAGNOSES: Grade 3 cystocele, stress incontinence, cervical leukoplakia. PROCEDURES: Cystocele repair, obturator sling placement, cystoscopy, cervical biopsies. ANESTHESIA: General LMA. ESTIMATED BLOOD LOSS: 75 mL. DRAINS: Fried catheter. PACKS: None. INDICATIONS AND FINDINGS: The patient is a 37-year-old female, who has been having worsening issues with stress incontinence and cystocele where she is feeling more and more pressure. She now desires surgical correction. She has also had an abnormal area on her cervix which is white. Pap smears have been normal with negative high-risk HPV. At the time of surgery, she was noted to have a grade 3 cystocele. There was a white area on the anterior cervix from approximately 10 to 1 o'clock. There was no significant uterine prolapse. She had a minimal rectocele. PROCEDURE IN DETAIL: The patient was prepped and draped in the dorsal lithotomy position. A weighted speculum was placed and the anterior vaginal wall was grasped and incised from the Electronically Signed By: PEARL BENITEZ MD 07/18/23 1846 PATIENT NAME: TAMARA BULLOCK OPERATIVE REPORT DATE OF : [birth year] REPORT #: [id number] PHYSICIAN: PEARL BENITEZ MD PCP: YANCI LOMBARDI MD REPORT IS CONFIDENTIAL AND NOT TO BE RELEASED WITHOUT AUTHORIZATION [facility] [address] [place], [place] [address] Signed midurethral area to near the cervix. The vaginal mucosa was from the underlying tissue with a combination of blunt and sharp dissecction. The suburethral dissection was carried out behind the pubic rami on each side. Bleeding points were controlled with cautery. The obturator notches were identified and a skin incision made. The trocars for the sling were placed. These were inserted at the lowest, most medial portion of the obturator notch and taken immediately behind the pubic rami and into the lateral aspect of the vaginal incision in the midurethral area. Cystoscopy was done to assure no damage to the bladder. The catheter was removed and the 70 degree scope inserted. The bladder was examined. There was no evidence of any injury to the bladder and there was no evidence of any incursion of the trocars into the bladder. Following this, the cystoscopy was complete and the bladder drained. The Fried catheter was replaced. The sling was then attached to the trocars and was pulled through the skin incisions. The covering was then incised allowing for the covering to come off and the sling tightened with the appropriate tension. The extra sling material was then trimmed at the skin incisions. The cystocele repair was then done. Interrupted sutures of 0 Vicryl were placed plicating the pubovesical fascia. This was done from the distal vagina to the proximal. Following this, the vaginal mucosa was trimmed a large amount as there was quite a bit of redundancy. FloSeal was injected around the sling incursion sites into the vagina. Again, the sling was noted to be in the midurethral area. The vaginal mucosa was then closed with a running suture of 2-0 Vicryl from the suburethral area to the cervical area. Good hemostasis was noted. Following this, attention was directed to the cervix. Biopsies were done at 12 o'clock and 10 o'clock with Tischler forceps. The remaining leukoplakia area was cauterized. The skin incisions were closed with interrupted sutures of 3-0 Vicryl. All sponge and needle counts were correct. The patient was taken to the recovery room in good condition. Pearl Benitez MD PJW/MODL /[id number] Electronically Signed By: PEARL BENITEZ MD 07/18/23 1846 PATIENT NAME: TAMARA BULLOCK OPERATIVE REPORT DATE OF : [birth year] REPORT #: [id number] PHYSICIAN: PEARL BENITEZ MD PCP: YANCI LOMBARDI MD REPORT IS CONFIDENTIAL AND NOT TO BE RELEASED WITHOUT AUTHORIZATION [address] [place] [address] Signed Copies: ~ Electronically Signed By: PEARL BENITEZ MD 07/18/23 1846 PATIENT NAME: TAMARA BULLOCKN OPERATIVE REPORT DATE OF : [birth year] REPORT #: [id number] PHYSICIAN: PEARL BENITEZ MD PCP: YANCI LOMBARDI MD REPORT IS CONFIDENTIAL AND NOT TO BE RELEASED WITHOUT AUTHORIZATION
--- NOTE | 2023-07-23 09:46 | PATH ---
[facility] [address] [facility] [place] [address] Signed SPECIMEN(S): A 12 O'CLOCK CERVICAL BIOPSY SPECIMEN(S): B 2 O'CLOCK CERVICAL BIOPSY SPECIMEN SOURCE: A. 12 O'CLOCK CERVICAL BIOPSY B. 2 O'CLOCK CERVICAL BIOPSY CLINICAL HISTORY: Cervical leukoplakia FINAL PATHOLOGIC DIAGNOSIS: A. 12 o'clock cervical biopsy: - Low grade squamous intraepithelial lesion (mild squamous dysplasia, XIOMARA 1). B. 2 o'clock cervical biopsy: - Squamous keratosis with mild atypia, indefinite for low grade squamous intraepithelial lesion (mild squamous dysplasia, XIOMARA 1). COMMENT: A recent cervical cytology has not been reviewed locally and therefore cannot be compared. [facility] MICROSCOPIC EXAMINATION: Histologic sections of all submitted blocks are examined by light microscopy. These findings, together with the gross examination, support the pathologic diagnosis. A P16 immunostain is performed with appropriate controls on block (A1) and is negative for full-thickness staining in the area of concern, supporting the diagnosis. JVR:[facility] GROSS DESCRIPTION: A. The specimen, labeled and designated "[place], A" and designated on the requisition "cervical biopsy 12:00," is received in formalin and consists of one fragment of white-hennessy soft tissue (0.4 cm in greatest dimension). The specimen is submitted entirely in cassette A1. B. The specimen, labeled and designated "[place], B" and designated on the requisition "cervical biopsy 2:00," is received in formalin and consists of four fragments of white-hennessy soft tissue (0.1 to 0.3 cm in greatest dimension). The specimen is submitted entirely in cassette B1. PATIENT NAME: TAMARA BULLOCK PATHOLOGY DATE OF : 83 REPORT #: [id number] PHYSICIAN: [facility] PCP: YANCI LOMBARDI MD REPORT IS CONFIDENTIAL AND NOT TO BE RELEASED WITHOUT AUTHORIZATION [facility] [address] [place], [place] [address] Signed AC (under the direct supervision of a pathologist) The Gross Description was prepared using a voice recognition system. The report was reviewed for accuracy; however, sound-alike word errors, addition and/or deletions may occur. If there is any question about this report, please contact Client Services. PERFORMING LABORATORY: Technical component was performed by [employer], [address] [place] [id number] (CLIA# [id number]). Professional interpretation was performed by [facility] - [facility], [address] [place] [id number] (CLIA#: [id number]). Diagnostician: Francisco Javier Camacho MD Pathologist Electronically Signed 07/23/2023 Copies: ~ PATIENT NAME: TAMARA BULLOCK PATHOLOGY DATE OF : 83 REPORT #: [id number] PHYSICIAN: [facility] PCP: YANCI LOMBARDI MD REPORT IS CONFIDENTIAL AND NOT TO BE RELEASED WITHOUT AUTHORIZATION
== END 2023-07-16 14:00 | disposition home or self-care (01) ==
LOC: OPS 06:25 → DS 06:25 → OPS 07:30
PROVIDERS: ATTEND Obstetrics & Gynecology
PROC: 0JQC0ZZ Repair Pelvic Region Subcutaneous Tissue and Fascia, Open Approach (ICD-10-PCS; principal; 2023-07-16 08:40)
PROC: 0TSD4ZZ Reposition Urethra, Percutaneous Endoscopic Approach (ICD-10-PCS; 2023-07-16 08:40)
PROC: 0UBC7ZX Excision of Cervix, Via Natural or Artificial Opening, Diagnostic (ICD-10-PCS; 2023-07-16 08:40)
DX: N87.0 Mild cervical dysplasia (principal); Z87.891 Personal history of nicotine dependence; N81.11 Cystocele, midline; N39.3 Stress incontinence (female) (male)
CPT/HCPCS: 00860; 88305; 88342; A9270; C1771; J0131; J0690; J1100; J1644; J1885; J2001; J2250; J2405; J2704; J2765; J3010; J7121

== ENCOUNTER 2024-05-19 06:00 | Day surgery (SDC) | payer OTHER ==
[2024-05-12 16:23] VITALS: BP 122/80
[~2024-05-19] VITALS: Ht 170.2 cm; Wt 63.6 kg
[~2024-05-19 06:00] MED LIST changes: +LACTATED RINGER'S 1,000 ML IV SCH
[2024-05-19 06:10] VITALS: BP 108/66
[2024-05-19] MEDS ORDERED: TERBINAFINE HC250 MG PO (06:11)
[2024-05-19] MEDS ORDERED: LIDOCAINE HCL 2% 5 ML SDV ONE (06:53)
[2024-05-19] MEDS ORDERED: propofoL 200 MG/20 ML VIAL ONE (06:53)
[2024-05-19] MEDS ORDERED: KETOROLAC TROMETHAMINE 30 MG/ML VIAL ONE (06:54)
[2024-05-19] MEDS ORDERED: LIDOCAINE HCL 1% 30 ML SDV ONE (06:54)
[2024-05-19] MEDS ORDERED: DEXAMETHASONE SOD PHOS 4 MG/ML VIAL ONE (06:54)
[2024-05-19] MEDS ORDERED: ondansetron HCL 4 MG/2 ML VIAL ONE (06:54)
[2024-05-19] MEDS ORDERED: KETAMINE in NS 50 MG/5 ML SYR ONE (06:56)
[2024-05-19] MEDS ORDERED: MIDAZOLAM HCL 2 MG/2 ML VIAL ONE (06:56)
[2024-05-19] MEDS ORDERED: IBLOOD GLUCOSE TEST STRIP 1 EA TEST VI PRN ×2 (07:00→07:45)
[2024-05-19] MEDS ORDERED: LIDOCAINE HCL 1% 5 ML SDV INJ ONE (07:00)
[2024-05-19] MEDS ORDERED: FAMOTIDINE 20 MG/ 2 ML VIAL IV SCH (07:00)
[2024-05-19] MEDS ORDERED: METOCLOPRAMIDE HCL 10 MG/2 ML SDV IV SCH (07:00)
[2024-05-19] MEDS ORDERED: SUGAMMADEX SODIUM 200 MG/2 ML ML ONE (07:12)
[2024-05-19] MEDS ORDERED: fentaNYL citrate 100 MCG/2 ML VIAL ONE (07:13)
--- NOTE | 2024-05-19 07:29 | NUR ---
PT NOT AVAILABLE FOR VISIT. PROVIDED PRAYER.
[2024-05-19] MEDS ORDERED: LACTATED RINGER'S 1,000 ML IV ONE (07:31)
[2024-05-19] MEDS ORDERED: ondansetron HCL 4 MG/2 ML VIAL IV PRN ×2 (07:45→08:15)
[2024-05-19] MEDS ORDERED: NALOXONE HCL 0.4 MG SYR IV PRN ×2 (07:45→08:15)
[2024-05-19] MEDS ORDERED: fentaNYL citrate 50 MCG/ML SDV IV PRN (07:45)
[2024-05-19] MEDS ORDERED: METOCLOPRAMIDE HCL 10 MG/2 ML SDV IV PRN (08:15)
[2024-05-19] MEDS ORDERED: ondansetron HCL 4 MG TAB PO PRN (08:15)
[2024-05-19] MEDS ORDERED: MAGNESIUM HYDROXIDE/AL HYDROX 30 ML CUP PO PRN (08:15)
[2024-05-19] MEDS ORDERED: PROCHLORPERAZINE EDISYLATE 10 MG/2 ML VIAL IV PRN (08:15)
[2024-05-19] MEDS ORDERED: FAMOTIDINE 20 MG TAB PO PRN (08:15)
[2024-05-19] MEDS ORDERED: LACTATED RINGER'S 1,000 ML IV SCH (08:15)
[2024-05-19] MEDS ORDERED: OXYCODONE/APAP 5/325 TAB PO PRN (08:15)
--- NOTE | 2024-05-19 08:30 | NUR ---
05/19/24 0830 Desire Bourgeois 0819- PT PRESENTS TO PACU, SEMI HUI POSITION, NON REACTIVE TO STIMULUS. OPA IN PLACE, BREATHING EVEN AND NON LABORED, O2 AT 6L PER MASK. LR INFUSING TO LH IV. DRESSING TO ABD, 3 LAP SITES (UMBILICUS, RLQ, LLQ) CDI, ABD SOFT NON DISTENDED. CONNOR PAD IN PLACE. NO BLEEDING AT THIS TIME. ALL MONITORS IN PLACE.
[2024-05-19 08:57] VITALS: BP 110/70
[2024-05-19] MEDS ORDERED: MINERAL OIL/CHONDRUS 30 ML BTL PO SCH (09:00)
[2024-05-19 09:53] VITALS: BP 107/62
--- NOTE | 2024-05-19 10:45 | NUR ---
LE 1035: PT IS ASSISTED UP OOB TO THE BATHROOM WHERE SHE IS ABLE TO VOID 100MLS. SHE INDICATES THAT SHE WOULD LIKE TO GO HOME. LE 1044: PT IS GIVEN WRITTEN AND VERBAL DC INSTRUCTIONS. QUESTIONS ARE ASKED AND ANSWERED. SHE IS EDUCATED ON HOW TO BEST DRESS HERSELF.
--- NOTE | 2024-05-19 10:45 | NUR ---
LUCAS 0955: PT IS TOLERATING RUSS CRACKERS AND WATER. SHE REQUESTS A PAIN PILL. CALL LIGHT WITHIN REACH. DC CRITERIA REVIEWED. SHE VERBALIZES UNDERSTANDING.
[2024-05-19] MEDS ORDERED: IBUPROFEN 800 MG TAB PO SCH (14:00)
--- NOTE | 2024-05-21 17:02 | PATH ---
[facility] [address] [place], [place] [address] Signed SPECIMEN(S): A FALLOPIAN TUBES, BILATERAL SPECIMEN SOURCE: A. FALLOPIAN TUBES, BILATERAL CLINICAL HISTORY: Patient request for ovarian cancer risk reduction FINAL PATHOLOGIC DIAGNOSIS: Bilateral fallopian tubes: - Two segments of benign fimbriated oviduct. JVR:clv MICROSCOPIC EXAMINATION: Histologic sections of all submitted blocks are examined by light microscopy. These findings, together with the gross examination, support the pathologic diagnosis. GROSS DESCRIPTION: The specimen, labeled and designated "[place], bilateral fallopian tubes," is received in formalin and consists of two undesignated fallopian tubes. Both show fimbria and violaceus and smooth serosa. The first tube measure 7.0 x 0.7 cm. The second fallopian tube measure 6.3 x 0.7 cm. Sectioning through both fallopian tubes is grossly unremarkable. Cassette Summary: (A1) first fallopian tube, sales representative sections (A2) second fallopian tube, sales representative sections JS (under the direct supervision of a pathologist) The Gross Description was prepared using a voice recognition system. The report was reviewed for accuracy; however, sound-alike word errors, addition and/or deletions may occur. If there is any question about this report, please contact Client Services. PERFORMING LABORATORY: Technical component was performed by [facility] [address] [place] [id number] (CLIA# [id number]). Professional interpretation was performed by [facility], [address] [place] [id number] (CLIA#: [id number]). Diagnostician: Francisco Javier Camacho MD Pathologist PATIENT NAME: TAMARA BULLOCK PATHOLOGY DATE OF : 83 REPORT #: [id number] PHYSICIAN: [facility] PCP: YANCI LOMBARDI MD REPORT IS CONFIDENTIAL AND NOT TO BE RELEASED WITHOUT AUTHORIZATION [address] [address] Signed Electronically Signed 05/21/2024 Copies: ~ PATIENT NAME: TAMARA BULLOCK PATHOLOGY DATE OF : 83 REPORT #: [id number] PHYSICIAN: [facility] PCP: YANCI LOMBARDI MD REPORT IS CONFIDENTIAL AND NOT TO BE RELEASED WITHOUT AUTHORIZATION
--- NOTE | 2024-05-24 07:20 | OR ---
[facility] [address] [place], [place] [address] Signed DATE OF OPERATION: 05/19/2024 SURGEON: Juaquin Benitez MD PREOPERATIVE DIAGNOSIS: Desire for risk reducing bilateral salpingectomy. POSTOPERATIVE DIAGNOSIS: Desire for risk reducing bilateral salpingectomy, normal pelvis. PROCEDURE: Laparoscopic bilateral salpingectomy. ANESTHESIA: General ET. ESTIMATED BLOOD LOSS: Minimal. DRAINS: None. INDICATIONS AND FINDINGS: The patient is a 38-year-old female, who is interested in reducing her risk of ovarian cancer. She understands this renders her permanently sterile. Consents have been obtained as well as ethics consent. At the time of surgery, exam under anesthesia was normal. At the time of laparoscopy, her pelvis was normal. PROCEDURE IN DETAIL: The patient was prepped and draped in the dorsal lithotomy position. An open-sided speculum was placed. The anterior lip of the cervix was visualized and grasped with single-tooth tenaculum. A Hulka clamp was then placed. The tenaculum and speculum were removed. Attention was directed above. The infraumbilical area was injected with 0.5% Marcaine plain. An incision was made with a knife, and each layer was serially elevated until the fascia was opened and identified and stay sutures of 0 Vicryl were placed. The peritoneum was opened bluntly and Ramone was then placed. The balloon was inflated. Placement of the scope confirmed proper positioning. CO2 was then introduced into the abdomen under low pressures. When the abdomen was appropriately distended, the pelvis was again visualized and the procedure appeared appropriate. The secondary ports were then placed. These were placed laterally and slightly below the level of the umbilicus. Electronically Signed By: JUAQUIN BENITEZ MD 05/24/24 0720 PATIENT NAME: TAMARA BULLOCK OPERATIVE REPORT DATE OF : 83 REPORT #: [id number] PHYSICIAN: JUAQUIN BENITEZ MD PCP: YANCI LOMBARDI MD REPORT IS CONFIDENTIAL AND NOT TO BE RELEASED WITHOUT AUTHORIZATION [facility] [address] [place], [place] [address] Signed Each of these areas was transilluminated, injected with the Marcaine, incision made with a knife and a 5 mm port placed under direct vision. Following this, the patient's right tube was grasped and the LigaSure [place] device was used to serially coagulate and divide the mesosalpinx from the fimbriated end to the cornu. The specimen was retrieved intact through the port. Following this, the patient's left tube was grasped and again the mesosalpinx was serially coagulated and divided from the fimbriated end to the cornu. This was divided at the cornu and the specimen retrieved. Inspection of the area confirmed good hemostasis. Following this, the instruments removed after allowing as much CO2 as possible to escape. The fascial incision of the umbilicus was re-identified and closed with a running suture of 0 Vicryl. The skin incisions were closed with subcuticular sutures of 3-0 Vicryl Rapide. Attention was directed down below and the vaginal instruments removed. There was no evidence of any ongoing bleeding. She was taken to the recovery room in good condition. All sponge and needle counts were correct. Juaquin Benitez MD PJW/MODL /[id number] Copies: ~ Electronically Signed By: JUAQUIN BENITEZ MD 05/24/24 0720 PATIENT NAME: TAMARA BULLOCK OPERATIVE REPORT DATE OF : 83 REPORT #: [id number] PHYSICIAN: JUAQUIN BENITEZ MD PCP: YANCI LOMBARDI MD REPORT IS CONFIDENTIAL AND NOT TO BE RELEASED WITHOUT AUTHORIZATION
== END 2024-05-19 10:50 | disposition home or self-care (01) ==
LOC: OPS 06:00 → DS 06:00 → OPS 07:30
PROVIDERS: ATTEND Obstetrics & Gynecology
PROC: 0UT74ZZ Resection of Bilateral Fallopian Tubes, Percutaneous Endoscopic Approach (ICD-10-PCS; principal; 2024-05-19 07:30)
DX: Z40.03 Encounter for prophylactic removal of fallopian tube(s) (principal); G43.009 Migraine without aura, not intractable, without status migrainosus; Z87.891 Personal history of nicotine dependence; Z79.899 Other long term (current) drug therapy; Z90.49 Acquired absence of other specified parts of digestive tract
CPT/HCPCS: 00840; 88302; J1100; J1885; J2001; J2250; J2405; J2704; J2765; J3010; J3490; J7121